=== PATIENT | female | born 1955 | race Caucasian/White ===

== ENCOUNTER 2024-06-06 14:17 | Emergency (ER) | payer MEDICARE, SELFPAY ==
--- NOTE | ~2024-06-06 | CT_ITS ---
EXAMINATION: CT ABDOMEN AND PELVIS WITHOUT CONTRAST CLINICAL INFORMATION: Right flank pain. History of stones. COMPARISON: None available. TECHNIQUE: Multidetector volumetric imaging was performed from the superior aspect of the liver through the pubic symphysis. Sagittal and coronal reformatted images were obtained on the technologist's workstation. This CT examination was performed using dose optimization techniques as appropriate, variously including the following: *Automated exposure control *Adjustment of mA and/or kV according to patient size (this includes techniques or standardized protocols for targeted exams where dose is matched to indication/reason for exam; i.e. extremities or head) *Use of iterative reconstruction technique DLP: 832 mGy-cm FINDINGS: LUNG BASES: Asymmetric elevation of left diaphragm above the right. Lung bases normally aerated. No pleural effusion or pneumothorax. LIVER, GALLBLADDER, AND BILIARY TREE: There is approximately 1 cm rounded hypodensity in segment 7 of liver likely benign in etiology. No suspicious hepatic lesion. No intrahepatic bile duct dilatation. The gallbladder is unremarkable with no evidence of radiopaque gallstones, gallbladder wall thickening, or obvious pericholecystic inflammatory changes. PANCREAS: Unremarkable. SPLEEN: Unremarkable. ADRENAL GLANDS: Unremarkable. KIDNEYS AND URETERS: Mild hydronephrosis of the right kidney with distention and renal pelvis and the right ureter to the ureterovesical junction. There is an obstructing stone at the distal right ureter at the UVJ. Stone measures about 2 to 3 mm size. Axial image 576/723 series 4. No other right renal or ureteral stone. There is no stone in the left collecting system. No left-sided hydronephrosis BLADDER: Unremarkable. GASTROINTESTINAL TRACT: Surgical anastomotic suture line at the rectosigmoid. There are a few scattered diverticula of the left colon and sigmoid with no evidence of diverticulitis. No bowel obstruction. No bowel wall thickening or edema. Moderate volume of stool in the colon. The appendix is normal. Small bowel loops are normal. ABDOMINAL WALL: Fat-containing ventral wall hernia superior to the umbilicus. Proximal 9 cm. Abdominal wall defect measuring about 1.5 cm. Herniated fat. Measures approximately 5 x 3 x 6 cm. LYMPH NODES: No significant lymphadenopathy. VASCULAR: There are vascular calcifications in the abdomen or pelvis. There is no aneurysm. PELVIC VISCERA: Status post hysterectomy. OSSEOUS STRUCTURES: Unremarkable. CT/CT abdomen pelvis wo IV con IMPRESSION: 1. Mild hydronephrosis of right kidney due to a 2 to 3 mm obstructing stone at the distal right ureter at the UVJ. 2. Fat-containing ventral wall hernia. Fleischner guidelines were followed. Electronically signed by: Mukund Hernandez MD 06/06/2024 04:56 PM EST
[2024-06-06 14:23] VITALS: BP 142/94; PULSE 87; RESP 16; TEMP 36.5; O2SAT 98; BMI 28.2
[2024-06-06 15:29] LABS: MANUAL DIFF FLAG NO
[2024-06-06 15:32] LABS: Basophils Absolute Auto 0.1 X10*3/uL (0.0-0.2); Basophils Percent Auto 0.5 % (0-2); Eosinophils Absolute Auto 0.1 X10*3/uL (0.0-0.4); Eosinophils Percent Auto 0.6 % (0-4); Hematocrit 41.5 % (37.0-47.0); Imm Gran Abs Auto 0.06 X10*3/uL (0.00-0.03); Imm Gran Pct Auto 0.4 % (0.0-0.4); Lymphocytes Absolute Auto 1.5 X10*3/uL (1.2-4.9); Lymphocytes Percent Auto 10.3 % (20-40); Mean Corpuscular HGB Conc 33.7 g/dl (31.0-35.0); Mean Corpuscular Hemoglobin 30.4 pg (27.0-33.0); Mean Corpuscular Volume 90.2 fL (80.0-98.0); Mean Platelet Volume 10.2 fL (9.4-12.3); Monocytes Absolute Auto 0.6 X10*3/uL (0.1-1.2); Neutrophils Percent Auto 84.2 % (45-73); Platelet Count 411 X10*3/uL (160-400); White Blood Count 14.2 X10*3/uL (4.8-10.8)
[2024-06-06 15:51] LABS: Albumin Level 4.2 g/dL (3.5-5.0); Anion Gap 13 (12-20); Aspartate Amino Transferase 16 U/L (5-31); Bilirubin Direct 0.2 mg/dL (0.0-0.5); Bilirubin Total 0.5 mg/dL (0.0-1.0); Blood Urea Nitrogen 18 mg/dL (9-16); Calcium 9.6 mg/dL (8.4-10.2); Carbon Dioxide 26 mmol/L (22-29); Chloride 103 mmol/L (96-108); Creatinine Clr Calc Pharmacy 59.9; Estimated Glomerular Filt Rate 55; Glucose Random 118 mg/dL (60-115); Lipase 19 U/L (8-78); Magnesium 2.2 mg/dL (1.6-2.6); Potassium 5.1 mmol/L (3.3-5.1); Sodium 137 mmol/L (135-145); Total Protein 6.8 g/dL (6.5-8.0)
[2024-06-06 16:14] LABS: Alanine Aminotransferase 14 U/L (0-31); Alkaline Phosphatase 91 U/L (39-117)
--- NOTE | 2024-06-06 17:54 | ED.GENADULT ---
HPI - General Adult General Chief complaint: Abdominal Pain Stated complaint: severe back pain Time Seen by Provider: 06/06/24 17:51 History of Present Illness ED Provider: Dr. Le HPI narrative: 69 y/o F patient; PMH nephrolothiasis; presents from home with report of right lower back pain radiating into her right side abdomen. Denies associated nausea/vomiting, fever or chills, SOB, cough/congestion, chest pain. Patient states feels similar to her prior kidney stones. Related Data Previous Rx's ?Medication ?Instructions ?Recorded ibuprofen 400 mg tablet 400 mg PO Q6H PRN pain #30 tabs 06/06/24 tamsulosin 0.4 mg capsule 0.4 mg PO DAILY #14 caps 06/06/24 Allergies Allergy/AdvReac Type Severity Reaction Status Date / Time Sulfa (Sulfonamide Allergy Unknown Unknown Verified 06/06/24 14:28 Antibiotics) Review of Systems Review of Systems: Yes all other systems are reviewed and are negative PMFSH Past Medical History Attestation statement: The following information was validated with the patient. Source: old records reviewed Social History Social History Smoked in Last 30 Days: No Use of substances other than those prescribed or required for medical reasons: No Advance Directives: No Advance Directives Information Provided: Yes Do you have a plan to hurt others: No Plan Physical Exam ED Vital Signs: Vital Signs - 24 hr 06/06/24 14:23 06/06/24 18:42 Temperature 97.7 F 97.6 F Pulse Rate 87 91 Respiratory Rate 16 16 Blood Pressure 142/94 H 131/67 Pulse Oximetry 98 99 Oxygen Delivery Method Room Air Room Air BMI result Body Mass Index 28.2 Patient is afebrile and hemodynamically stable. Const General: cooperative Orientation/consciousness: patient oriented x3 HENMT Head: Yes normal to inspection and Yes atraumatic Eyes General: appearance normal, both eyes and all related structures Neck Neck: Yes normal visual inspection, Yes full ROM, Yes supple and No tender Chest Chest palpation & inspection: normal inspection of the chest and normal palpation of entire chest wall Resp Effort & Inspection: normal respiratory effort, able to speak in complete sentences, no cough and no respiratory distress Auscultation: clear to auscultation bilaterally Cardio Rate: regular rate Rhythm: regular rhythm Peripheral pulses: Peripheral pulses 2+ throughout GI Inspection: No Abdominal wall edema and No distended Palpation (GI): Soft to palpation, not firm, nontender, no guarding and not rigid Auscultation: normal bowel sounds Back/Spine/Pelvis Back: back tenderness Neuro General: patient oriented x3 Course Course Course Narrative: Patient is afebrile and hemodynamically stable. Reviewed labs and CT Abdomen/Pelvis ordered in triage. Mild leukocytosis 14.2. Remainder of labs unremarkable. CT with mild hydronephrosis of right kidney due to 2 - 3mm obstructing stone at the distal right ureter at the UVJ. Fat containing ventral wall hernia. Pending UA. Triage provider ordered IVF, Toradol IV, Prednisone 20mg PO, and Flomax PO prior to my assessment of patient. Toradol changed to IM and patient provided with PO fluids. UA without evidence of infection. Plan: Discharge to home with PCP and Urology follow up Return precautions given Medications Administered Discontinued Medications Generic Name Dose Route Start Last Admin Trade Name Freq PRN Reason Stop Dose Admin Ketorolac Tromethamine 30 mg 06/06/24 18:06 06/06/24 18:16 Ketorolac Tromethamine 30 Mg/Ml Vial IM 06/06/24 18:07 30 mg ONCE ONE Administration Prednisone 20 mg 06/06/24 17:33 06/06/24 18:00 Prednisone 20 Mg Tablet PO 06/06/24 17:34 20 mg ONCE ONE Administration Tamsulosin HCl 0.4 mg 06/06/24 17:33 06/06/24 17:59 Tamsulosin Hcl 0.4 Mg Capsule PO 06/06/24 17:34 0.4 mg ONCE ONE Administration Medical Decision Making Lab Data 06/06/24 15:13 06/06/24 15:13 Labs: Lab Results 06/06/24 06/06/24 Range/Units 15:13 18:43 WBC 14.2 H (4.8-10.8) X10*3/uL RBC 4.60 (4.20-5.50) X10*6/uL Hgb 14.0 (12.0-16.0) g/dl Hct 41.5 (37.0-47.0) % MCV 90.2 (80.0-98.0) fL MCH 30.4 (27.0-33.0) pg MCHC 33.7 (31.0-35.0) g/dl RDW 13.0 (11.0-16.0) % Plt Count 411 H (160-400) X10*3/uL MPV 10.2 (9.4-12.3) fL Immature Gran % (Auto) 0.4 (0.0-0.4) % Neut % (Auto) 84.2 H (45-73) % Lymph % (Auto) 10.3 L (20-40) % [place] % (Auto) 4.0 (2-11) % Eos % (Auto) 0.6 (0-4) % Baso % (Auto) 0.5 (0-2) % Lymph # (Auto) 1.5 (1.2-4.9) X10*3/uL [place] # (Auto) 0.6 (0.1-1.2) X10*3/uL Eos # (Auto) 0.1 (0.0-0.4) X10*3/uL Baso # (Auto) 0.1 (0.0-0.2) X10*3/uL Abs Immat Gran (auto) 0.06 H (0.00-0.03) X10*3/uL Absolute Neuts (auto) 12.0 H (2.0-8.3) x10*3/uL Absolute Nucleated RBC 0.000 (0.0-0.012) X10*3/uL Nucleated RBC % (auto) 0.0 (0.0-0.2) /100WBC Sodium 137 (135-145) mmol/L Potassium 5.1 (3.3-5.1) mmol/L Chloride 103 (96-108) mmol/L Carbon Dioxide 26 (22-29) mmol/L Anion Gap 13 (12-20) BUN 18 H (9-16) mg/dL Creatinine 1.00 (0.5-1.4) mg/dL Estim Creat Clear Calc 59.9 Estimated GFR 55 Random Glucose 118 H (60-115) mg/dL Calcium 9.6 (8.4-10.2) mg/dL Magnesium 2.2 (1.6-2.6) mg/dL Total Bilirubin 0.5 (0.0-1.0) mg/dL Direct Bilirubin 0.2 (0.0-0.5) mg/dL AST 16 (5-31) U/L ALT 14 (0-31) U/L Alkaline Phosphatase 91 (39-117) U/L Total Protein 6.8 (6.5-8.0) g/dL Albumin 4.2 (3.5-5.0) g/dL Lipase 19 (8-78) U/L Urine Color Yellow Urine Appearance Turbid Urine pH 5.5 (5.0-9.0) Ur Specific [place] 1.015 (1.005-1.025) Urine Protein 30 (1+) H (Neg-Trace) mg/dL Urine Glucose (UA) Negative (Negative) mg/dL Urine Ketones Trace (Negative) mg/dL Urine Blood Large (3+) H (Negative) Urine Nitrite Negative (Negative) Ur Leukocyte Esterase Trace H (Negative) Urine RBC >20 H (0-2) /HPF Urine WBC 0-5 (0-5) /HPF Ur Squamous Epith Cells 0-2 (0-2) /HPF Urine Bacteria None Seen (None Seen) Hyaline Casts 3-5 (0-2) /LPF Radiology Impression Discussion of test interpretation with radiology: I have reviewed the radiologist's reading. Radiologist Impression: EXAMINATION: CT ABDOMEN AND PELVIS WITHOUT CONTRAST CLINICAL INFORMATION: Right flank pain. History of stones. COMPARISON: None available. TECHNIQUE: Multidetector volumetric imaging was performed from the superior aspect of the liver through the pubic symphysis. Sagittal and coronal reformatted images were obtained on the technologist's workstation. This CT examination was performed using dose optimization techniques as appropriate, variously including the following: *Automated exposure control *Adjustment of mA and/or kV according to patient size (this includes techniques or standardized protocols for targeted exams where dose is matched to indication/reason for exam; i.e. extremities or head) *Use of iterative reconstruction technique DLP: 832 mGy-cm FINDINGS: LUNG BASES: Asymmetric elevation of left diaphragm above the right. Lung bases normally aerated. No pleural effusion or pneumothorax. LIVER, GALLBLADDER, AND BILIARY TREE: There is approximately 1 cm rounded hypodensity in segment 7 of liver likely benign in etiology. No suspicious hepatic lesion. No intrahepatic bile duct dilatation. The gallbladder is unremarkable with no evidence of radiopaque gallstones, gallbladder wall thickening, or obvious pericholecystic inflammatory changes. PANCREAS: Unremarkable. SPLEEN: Unremarkable. ADRENAL GLANDS: Unremarkable. KIDNEYS AND URETERS: Mild hydronephrosis of the right kidney with distention and renal pelvis and the right ureter to the ureterovesical junction. There is an obstructing stone at the distal right ureter at the UVJ. Stone measures about 2 to 3 mm size. Axial image 576/723 series 4. No other right renal or ureteral stone. There is no stone in the left collecting system. No left-sided hydronephrosis BLADDER: Unremarkable. GASTROINTESTINAL TRACT: Surgical anastomotic suture line at the rectosigmoid. There are a few scattered diverticula of the left colon and sigmoid with no evidence of diverticulitis. No bowel obstruction. No bowel wall thickening or edema. Moderate volume of stool in the colon. The appendix is normal. Small bowel loops are normal. ABDOMINAL WALL: Fat-containing ventral wall hernia superior to the umbilicus. Proximal 9 cm. Abdominal wall defect measuring about 1.5 cm. Herniated fat. Measures approximately 5 x 3 x 6 cm. LYMPH NODES: No significant lymphadenopathy. VASCULAR: There are vascular calcifications in the abdomen or pelvis. There is no aneurysm. PELVIC VISCERA: Status post hysterectomy. OSSEOUS STRUCTURES: Unremarkable. CT/CT abdomen pelvis wo IV con IMPRESSION: 1. Mild hydronephrosis of right kidney due to a 2 to 3 mm obstructing stone at the distal right ureter at the UVJ. 2. Fat-containing ventral wall hernia. Fleischner guidelines were followed. Electronically signed by: Mukund Hernandez MD 06/06/2024 04:56 PM [facility] Discharge Plan Discharge Clinical Impression: Calculus of kidney Patient Disposition: Home, Self-Care Instructions: Kidney Stones (ED) Additional Instructions: As we discussed, you were seen for flank pain. You were found to have a 2 - 3mm kidney stone. Prescriptions for Ibuprofen (pain medicine) and Flomax (medication to help pass the stone) were sent to your pharmacy. Take these as prescribed. Please call to arrange an appointment with the urologist within the next 1 week. Return to the emergency department for: Worsening pain Fever Prescriptions: New tamsulosin 0.4 mg capsule 0.4 mg PO DAILY Qty: 14 0RF ibuprofen 400 mg tablet 400 mg PO Q6H PRN (Reason: pain) Qty: 30 0RF Referrals: Martinez La MD [Physician] - 1 week Print Language: Upper Sorbian
[2024-06-06] MEDS: Tamsulosin HCL 0.4 MG CAPSULE PO (17:59)
[2024-06-06] MEDS: predniSONE 20 MG TABLET PO (18:00)
[2024-06-06] MEDS: Ketorolac Tromethamine 30 MG/ML VIAL IM (18:16)
[2024-06-06 18:42] VITALS: BP 131/67; PULSE 91; RESP 16; TEMP 36.4; O2SAT 99
[2024-06-06 19:07] LABS: Appearance Urine Turbid; Color Urine Yellow; Glucose Urine UA Negative (Negative); Leukocyte Esterase Urine Trace (Negative); Nitrite Urine Negative (Negative); PH 5.5 (5.0-9.0); Specific Gravity - Urine 1.015 (1.005-1.025); UMIC TRIGGER UACC YES; Urine Blood Large (3+) (Negative); Urine Ketones Trace mg/dL (Negative); Urine Protein 30 (1+) mg/dL (Neg-Trace)
[2024-06-06 19:29] LABS: Bacteria Urine None Seen (None Seen); RBC Urine >20 /HPF (0-2); Squamous Epithelial Cell Urine 0-2 /HPF (0-2); WBC Urine 0-5 /HPF (0-5)
[2024-06-06 19:45] VITALS: BP 131/67; PULSE 91; RESP 16; TEMP 36.4; O2SAT 99
== END 2024-06-06 19:46 | disposition home or self-care (01) ==
PROVIDERS: Physician Assistant Medical; Emergency Provider Emergency Medicine; PCP Internal Medicine
DX: N20.0 Calculus of kidney (principal); M54.50 Low back pain, unspecified; R10.2 Pelvic and perineal pain; Z79.899 Other long term (current) drug therapy
CPT/HCPCS: 36415; 74176; 80048; 80076; 81001; 81003; 83690; 83735; 85025; 96372; 99284; J1885

== ENCOUNTER 2024-08-01 07:56 | Outpatient (AMB) | payer MEDICARE, SELFPAY ==
--- NOTE | 2024-08-01 08:11 | MHC.OFFVIS ---
Intake Visit Reasons: kidney stones Intake Note: New Patient presents for initial visit for kidney stones Urology Medications: none Blood Thinner: none Art Conservator Required: No Accompanied by: Self / Same As Patient Allergies Sulfa (Sulfonamide Antibiotics) Allergy (Unknown, Verified 08/01/24 08:38) Unknown Medication List - Last Reconciled 08/01/24 by LAM UribeP- alendronate 70 mg PO QWEEK atorvastatin 80 mg PO DAILY bupropion HCl SR 150 mg PO BID cyclobenzaprine 10 mg PO DAILY PRN gabapentin 100 - 200 mg PO TID PRN ibuprofen 400 mg PO Q6H PRN levothyroxine 175 mcg PO DAILY omeprazole 40 mg PO DAILY sertraline 100 mg PO DAILY tramadol mg PO HPI Comments Details: Tejal Turcios is a very pleasant 69-year-old female patient of Dr. Cory Shen. She presents to the office today as a new patient for nephrolithiasis. In discussion with the patient today she reports having seeked emergency room care approximately 2 months ago for right-sided flank pain she had been experiencing that has since subsided. CT results reviewed with the patient today 06/14 mild hydronephrosis of the right kidney due to 2-3 mm obstructing stone at the distal right ureter at the UVJ. She does report a previous history of nephrolithiasis over 10 years ago requiring ureteroscopy. She denies having had any other episodes of nephrolithiasis in the last 10 years. She reports pain has since subsided. She otherwise denies any bothersome urinary issues. She denies urinary urgency, urinary frequency, incontinence, nocturia, hematuria, dysuria, foul smelling urine, changes to urinary stream, flank pain, fever, and or chills.She is happy with her current voiding parameters. In office urinalysis results reviewed with the patient today. We discussed at length potential causes of nephrolithiasis as well as importance of adequate hydration relation to nephrolithiasis. We discussed potential for near future metabolic workup with [facility]. She otherwise offers no other issues or concerns at this time. Review of Systems Const All systems reviewed & are unremarkable except as noted in HPI and below Physical Exam Const General: cooperative, healthy appearing, comfortable, no acute distress, well developed, alert and awake Orientation/consciousness: patient oriented x3 Limitations: no limitations HEENT Head: Yes normal to inspection, Yes normocephalic and Yes atraumatic Ears: hearing grossly normal bilaterally Eyes General: appearance normal, both eyes and all related structures Neck Neck: Yes normal visual inspection and Yes trachea midline Chest Chest palpation & inspection: normal inspection of the chest Resp Effort & Inspection: normal respiratory effort and able to speak in complete sentences Cardio Rate: regular rate GI Inspection: Yes normal to inspection General: Yes no CVA tenderness Back/Spine/Pelvis Back: no CVA tenderness Skin General skin exam: no rashes or lesions noted Neuro General: patient oriented x3 Extrem General: Yes normal to inspection Psych Appearance: grossly normal and well kempt Mental Status: mental status grossly normal Speech and movement: Normal speech and movement present and Clear speech present Affect: normal affect Attitude: cooperative Thought process: Normal thought process present Thought content: Normal thought content present Insight: Fair insight present (Psych) Judgement: Fair judgement present (Psych) Results AMB Urinalysis, Automated UA Leukoctes 15 Angelina/uL Last Edit by [employer] AmiWisair on 08/01/24 08:25 UA Nitrite Last Edit by Ricebooknolan Nelson on 08/01/24 08:25 UA Urobilinogen 0.2 mg/dL Last Edit by [employer] on 08/01/24 08:25 UA Protein 0 mg/dL Last Edit by [employer] on 08/01/24 08:25 UA pH 6.0 Last Edit by Charlene MuellerWisair on 08/01/24 08:25 UA Blood 0 Cheng/uL Last Edit by [employer] on 08/01/24 08:25 UA Specific [place] 1.010 Last Edit by efab[employer] corporationramo Nelson on 08/01/24 08:25 UA Ketone Last Edit by [employer] on 08/01/24 08:25 UA Bilirubin 0 mg/dL Last Edit by [employer] on 08/01/24 08:25 UA Glucose 0 mg/dL Last Edit by [employer] on 08/01/24 08:25 Results Reviewed Results Reviewed: Laboratory Last Values Urine pH (Auto) 6.0 08/01/24 08:24 Specific [place] (Auto) 1.010 08/01/24 08:24 Urine Protein (Auto) 0 mg/dL 08/01/24 08:24 Glucose (UA)(Auto) 0 mg/dL 08/01/24 08:24 Urine Blood (Auto) 0 Cheng/uL 08/01/24 08:24 Urine Bilirubin (Auto) 0 mg/dL 08/01/24 08:24 Urine Urobilinogen (Auto) 0.2 mg/dL 08/01/24 08:24 Leukocyte Esterase (Auto) 15 Angelina/uL 08/01/24 08:24 Date of Service: 06/06/24 EXAMINATION: CT ABDOMEN AND PELVIS WITHOUT CONTRAST FINDINGS: LUNG BASES: Asymmetric elevation of left diaphragm above the right. Lung bases normally aerated. No pleural effusion or pneumothorax. LIVER, GALLBLADDER, AND BILIARY TREE: There is approximately 1 cm rounded hypodensity in segment 7 of liver likely benign in etiology. No suspicious hepatic lesion. No intrahepatic bile duct dilatation. The gallbladder is unremarkable with no evidence of radiopaque gallstones, gallbladder wall thickening, or obvious pericholecystic inflammatory changes. PANCREAS: Unremarkable. SPLEEN: Unremarkable. ADRENAL GLANDS: Unremarkable. KIDNEYS AND URETERS: Mild hydronephrosis of the right kidney with distention and renal pelvis and the right ureter to the ureterovesical junction. There is an obstructing stone at the distal right ureter at the UVJ. Stone measures about 2 to 3 mm size. Axial image 576/723 series 4. No other right renal or ureteral stone. There is no stone in the left collecting system. No left-sided hydronephrosis BLADDER: Unremarkable. GASTROINTESTINAL TRACT: Surgical anastomotic suture line at the rectosigmoid. There are a few scattered diverticula of the left colon and sigmoid with no evidence of diverticulitis. No bowel obstruction. No bowel wall thickening or edema. Moderate volume of stool in the colon. The appendix is normal. Small bowel loops are normal. ABDOMINAL WALL: Fat-containing ventral wall hernia superior to the umbilicus. Proximal 9 cm. Abdominal wall defect measuring about 1.5 cm. Herniated fat. Measures approximately 5 x 3 x 6 cm. LYMPH NODES: No significant lymphadenopathy. VASCULAR: There are vascular calcifications in the abdomen or pelvis. There is no aneurysm. PELVIC VISCERA: Status post hysterectomy. OSSEOUS STRUCTURES: Unremarkable. IMPRESSION: 1. Mild hydronephrosis of right kidney due to a 2 to 3 mm obstructing stone at the distal right ureter at the UVJ. 2. Fat-containing ventral wall hernia. Assessment & Plan Assessment & Plan (1) Calculus of kidney: Code(s): N20.0 - Calculus of kidney Category: Medical Plan In office urinalysis results reviewed with the patient today; as noted above. Recent CT results reviewed with the patient today; as noted above. We discussed at length potential causes of nephrolithiasis as well as further metabolic workup. We discussed importance of adequate hydration relation to nephrolithiasis. We discussed adding 1 oz of lemon juice to water daily. She denies any bothersome urinary issues or concerns. She reports be happy with current voiding parameters. Follow-up in 1-3 months with imaging to be completed prior; or sooner with any issues, concerns, and or questions. Orders: Orders AMB Urinalysis Automated Today Z13.9 - Encounter for screening, unspecified US renal BI Today N20.0 - Calculus of kidney Patient Instructions: The patient had an opportunity to ask questions regarding the treatment plan. All questions were answered. Physical exam, labs, and imaging were discussed and reviewed in detail. As well as risks, benefits, and discussion of treatment choices. No major barriers to understanding were identified. The patient expressed understanding and agreement with the above treatment plan. The patient was made aware they should contact our office by phone for worsening of their current condition, the appearance of new symptoms, or with any questions or concerns. Compliance is encouraged with any medications and follow up testing that is ordered. It is a privilege to be allowed the opportunity to participate in? your urological care.? Again, if you have any questions or concerns If you have any questions or concerns please do not hesitate to contact me. The office is [phone]. This note is constructed using voice recognition software. While every effort has been made to ensure accuracy moisture conditioner operator errors may have been included. Yours sincerely, ROBSON Uribe Coding Level of Care Code New Pt Level 3 (35122) Diagnoses Calculus of kidney N20.0
== END 2024-08-01 08:39 | disposition home or self-care (01) ==
PROVIDERS: PCP Internal Medicine; Visit Provider Nurse Practitioner Family
DX: N20.0 Calculus of kidney (principal); Z13.9 Encounter for screening, unspecified
CPT/HCPCS: 99203

== ENCOUNTER → 2024-08-01 07:56 | Outpatient (BNVA) | payer MEDICARE, SELFPAY | PROVIDERS: PCP Internal Medicine; Visit Provider Nurse Practitioner Family | DX: N20.0 Calculus of kidney (principal) | CPT/HCPCS: 81003; 99202 ==

== ENCOUNTER 2024-09-05 11:00 | Outpatient (REF) | payer MEDICARE, SELFPAY ==
[2024-09-05 14:25] LABS: MANUAL DIFF FLAG NO
[2024-09-05 14:28] LABS: Basophils Absolute Auto 0.1 X10*3/uL (0.0-0.2); Basophils Percent Auto 1.1 % (0-2); Eosinophils Absolute Auto 0.2 X10*3/uL (0.0-0.4); Eosinophils Percent Auto 3.4 % (0-4); Hematocrit 42.6 % (37.0-47.0); Hemoglobin 13.8 g/dl (12.0-16.0); Imm Gran Abs Auto 0.01 X10*3/uL (0.00-0.03); Imm Gran Pct Auto 0.2 % (0.0-0.4); Lymphocytes Absolute Auto 2.1 X10*3/uL (1.2-4.9); Lymphocytes Percent Auto 32.7 % (20-40); Mean Corpuscular HGB Conc 32.4 g/dl (31.0-35.0); Mean Corpuscular Hemoglobin 29.2 pg (27.0-33.0); Mean Corpuscular Volume 90.3 fL (80.0-98.0); Mean Platelet Volume 10.7 fL (9.4-12.3); Monocytes Absolute Auto 0.4 X10*3/uL (0.1-1.2); Monocytes Percent Auto 6.8 % (2-11); Neutrophils Absolute Auto 3.6 x10*3/uL (2.0-8.3); Neutrophils Percent Auto 55.8 % (45-73); Platelet Count 381 X10*3/uL (160-400); Red Blood Count 4.72 X10*6/uL (4.20-5.50); Red Cell Distribution Width 13.2 % (11.0-16.0); White Blood Count 6.5 X10*3/uL (4.8-10.8)
[2024-09-05 14:49] LABS: Estimated Average Glucose 108 mg/dL; Hemoglobin A1C 130.4511 umol/L; Hemoglobin A1c % 5.4 % (<6.0); Total Hemoglobin (HGBA1C) 3635.7978 umol/L
[2024-09-05 14:56] LABS: Alanine Aminotransferase 15 U/L (0-31); Alkaline Phosphatase 97 U/L (39-117); Anion Gap 11 (12-20); Aspartate Amino Transferase 21 U/L (5-31); Bilirubin Total 0.4 mg/dL (0.0-1.0); Blood Urea Nitrogen 14 mg/dL (9-16); Calcium 9.2 mg/dL (8.4-10.2); Carbon Dioxide 25 mmol/L (22-29); Chloride 108 mmol/L (96-108); Cholesterol 163 mg/dL (<200); Estimated Glomerular Filt Rate > 60; Glucose Random 79 mg/dL (60-115); HDL Cholesterol 46 mg/dL (>40); LDL Cholesterol Calculated 96 mg/dL (<100); Potassium 4.7 mmol/L (3.3-5.1); Sodium 139 mmol/L (135-145); Total Protein 6.9 g/dL (6.5-8.0); Triglycerides 107 mg/dL (<150)
[2024-09-05 15:11] LABS: TSH reflex Free T4 13.05 uIU/mL (0.32-4.0)
[2024-09-05 15:46] LABS: Free T4 (Free Thyroxine) 1.13 ng/dL (0.71-1.85)
[2024-09-06 08:07] LABS: ~HepC Num1 0.08 S/CO (0.00-0.79); ~Hepatitis C Antibody Nonreactive (Nonreactive)
== END 2024-09-05 11:01 | disposition home or self-care (01) ==
LOC: HO.CHCLDS 11:00
PROVIDERS: Visit Provider Internal Medicine
DX: E03.9 Hypothyroidism, unspecified (principal); Z13.1 Encounter for screening for diabetes mellitus
CPT/HCPCS: 36415; 80053; 80061; 83036; 84439; 84443; 85025; 86803

== ENCOUNTER 2024-09-08 10:55 | Outpatient (REF) | payer MEDICARE, SELFPAY ==
--- NOTE | ~2024-09-08 | US_ITS ---
CLINICAL HISTORY: N20.0 - Calculus of kidney US Renal Comparison: None Findings: Right kidney normal size and echotexture, 9.6 cm length. Left kidney normal size and echotexture, 10.0 cm length. No collecting system dilatation of either kidney. Normal color Doppler. IMPRESSION: 1. Normal kidneys. This document has been electronically signed by: Kahlil Ramirez MD on 09/09/2024 08:27:18
--- OUTSIDE RECORDS SUMMARY | 2024-09-08 12:51 | XMS_ITS | Encounter Summary ---
Author Organization [employer] Address [address] [place] [address] Care Team Providers Care Pumper Gauger Apprentice Name Role Phone Ej Ceron MD Primary Care Prov ider Encounter Details Date Type Department Care Team (Late st Contact Info) Description 09/05/2024 Orders Only [facility] [address] [place], [place] [phone] Ej Ceron MD [address] [place], [place] [phone] Acquired hypothyroidism (Primary Dx) Social History Tobacco Use Types Packs/Day Years Used Date Smoking Tobacco: Former Cigarettes 0.5 46 S tarted: 1976 Smokeless Tobacco: Never Alcohol Use Standard Drinks/Week Comments Yes 0 (1 standard drink = 0.6 oz pur e alcohol) tequila 1-2 times a yeart Depression Answer Date Recorded Patient Health Questionnaire-9 Score 0 05/17/2024 Patient Health Questionnaire-9 Score 0 05/17/2024 Last PHQ-9: Questionnaire Data Not on file 1 07/17/2023 Housing Stability Answer Date Recorded What is your housing situation today? I have wilfredo juarez 05/17/[address] you li ve. Do you have problems with any of the following? None of the above 05/17/2024 Food Insecurity Answer Date Recorded Within the past 12 months, y ou worried that your food would run out before you got money to buy more: Never True 05/17/2024 Within the past 12 months,th e food you bought just didn't last and you didn't have enough money to get more: Never True Transportation Answer Date Recorded In the past 12 months, has l ack of transportation kept you from medical appts, meetings, work or from getting things needed for daily living? No 05/17/2024 Utilities Answer Date Recorded In the past 12 months, has t he electric, gas, oil or water company threatened to shut off services in your home? No 05/17/2024 Depression Answer Date Recorded Patient Health Questionnaire-2 Score 0 05/17/2024 Internet Access Answer Date Recorded Internet Access Q1 Yes 05/17/2024 Internet Access Q2 Not on file 05/17/2024 Comments Unknown Sex and Gender Information Value Date Recorded Sex Assigned at Female 05/17/2024 12:03 PM EST Legal Sex Female 11:53 AM EDT Gender Identity Female 05/17/2024 12:03 PM EST Sexual Orientation Don't know 05/17/2024 12 :03 PM EST documented as of this encounter Plan of Treatment Scheduled Orders Name Type Priority Associated Diagnoses Orde r Schedule TSH W/Reflex to FT4 Lab Routine Acquired hypothyroidism Expected: 11/05/2024 (Approximate), Expires: 09/05/2025 documented as of this encounter Visit Diagnoses Diagnosis Acquired hypothyroidism- Primary Unspecified hypothyroidism documented in this encounter Additional Health Concerns Assessment Noted Time PHQ-9 Depression Total Score: 0 05/17/20 2:24 PM EST documented as of this encounter Care Teams Pumper Gauger Apprentice Relationship Specialty Start Date End Date Ej Ceron MD [address] [place] [id number] PCP - General Internal Medicine 06/08/24 documented as of this encounter
--- OUTSIDE RECORDS SUMMARY | 2024-09-08 12:51 | XMS_ITS | Clinical Summary ---
Author Organization [facility] Address [address] [place] [address] Care Team Providers Care Knock Out Hand Name Role Phone Ej Ceron Primary Care Provide r Encounters Date Type Department Care Team Description 08/12/2024 12:50 PM EST - 08/12/2024 11:59 PM EST Hospital Encounter [facility] Xray [address] [place] [phone] Pain in left shoulder; Other chronic pain Discharge Disposition: Home or Self Care 08/02/2024 10:44 AM EST - 08/02/2024 11:59 PM EST Hospital Encounter [facility] at [address] [phone] Encounter for screening mammogram for malignant neoplasm of breast Discharge Disposition: Home or Self Care from Last 3 Months Surgical History Surgery Date Site/Laterality Comments LITHOTRIPSY PROCEDURE: HISTORICAL LITHOTRIPSY BOWEL RESECTION PROCEDURE: HISTORICAL BOWEL RESECTION OTHER SURGICAL HISTORY PROCEDURE: HISTORY OTHER; COMMENT: mid urethral sling operation COLONOSCOPY 2016 PROCEDURE: HISTORICAL COLONOSCOPY; COMMENT: Dr Anthony repeat 10 yrs. No report received SHOULDER SURGERY 2008 Right PROCEDURE: HISTORICAL SHOULDER SURGERY Medical History Medical History Date Comments Hypothyroidism 07/01/2017 DX:Hypothyroidis m Hyperlipidemia 07/01/2017 DX:Hyperlipidemi a Allergic rhinitis 07/01/2017 DX:Allergic rh initis GERD (gastroesophageal reflux disease) 07/01/2017 DX:GERD (gastroesophageal reflux disease) Depression 07/01/2017 DX:Depression Diverticulosis 07/01/2017 DX:Diverticulosi s Hemorrhoids 07/01/2017 DX:Hemorrhoids; COMMENT: internal Osteoarthritis 07/01/2017 DX:Osteoarthriti s; COMMENT: knees Osteopenia 07/01/2017 DX:Osteopenia Lung nodule 02/02/2020 DX:Lung nodule; COMMENT: Does LDCT CAD (coronary artery disease) 02/02/2020 DX :CAD (coronary artery disease); COMMENT: Unless she is symptomatic, only thing to do is high dose statin, baby asa and make sure BP and BS are good. Per Dr Laureano Osteoarthritis of both knees 07/01/2017 DX: Osteoarthritis of both knees; COMMENT: knees Family History Medical History Relation Name Comments Alzheimer's disease Brother 1 No Known Problems Brother 2 Coronary artery disease Father Coronary artery disease Mother Thyroid disease Mother Breast cancer Other sister Thyroid disease Sister 1 Breast cancer Sister 2 Relation Name Status Comments Brother 1 Brother 2 Alive Father Mother Other sister Alive Sister 1 Alive Sister 2 Social History Tobacco Use Types Packs/Day Years Used Date Smoking Tobacco: Former Cigarettes Q uit: 07/02/2022 Smokeless Tobacco: Never Alcohol Use Standard Drinks/Week Comments Yes 0 (1 standard drink = 0.6 oz pur e alcohol) Comments Unknown Sex and Gender Information Value Date Recorded Sex Assigned at Female 07/19/2024 2:15 PM EST Legal Sex Female 1:45 PM EDT Gender Identity Female 07/19/2024 2:15 PM EST Sexual Orientation Straight 07/19/2024 2: 15 PM EST Obstetrics History Last Filed Vital Signs Vital Sign Reading Time Taken Comments Blood Pressure 122/80 04/08/2024 12:55 PM EDT Pulse 96 04/08/2024 12:55 PM EDT Temperature - - Respiratory Rate - - Oxygen Saturation - - Inhaled Oxygen Concentration - - Weight 81.6 kg (180 lb) 08/02/2024 11:06 AM EST Height 170.2 cm (5' 7 ) 08/02/2024 11:06 AM EST Body Mass Index 28.19 08/02/2024 11:06 AM EST Plan of Treatment Health Maintenance Due Date Last Done Comments Cholesterol Screening (Lipid Panel) 02/13/2022 Falls Risk Assessment 02/13/2022 Hepatitis C Screening 02/13/2022 Medicare Annual Wellness Visit 02/13/2022 Social Influencers of Health Screening 02/13/2022 Zoster Vaccines (2 of 2) 09/21/2023 07/27/2023, 06/22 COVID-19 Vaccine ( - season) 2024 07/27/2023, 07/06/2023, 05/21/2022, Additional history exists Lung Cancer Screening (Low Dose CT) 04/12/2025 04/12/2024, 04/09/2023, 03/27/2022, Additional history exists Depression Screening 05/17/2025 05/17/2024 Hypertension/CHF/CAD Annual BMP Blood Test 06/06/2025 06/06/2024 Breast Cancer Screening 08/02/2026 08/02/2024 Colorectal Cancer Screening: Colonoscopy 08/15/2026 Osteoporosis Screening (Bone Density Screening) 06/18/2030 06/18/2020 DTaP,Tdap,and Td Vaccines (3 - Td or Tdap) 12/18/2030 12/18/2020, 02/14/2010 Pneumococcal Vaccine: 50+ Years Completed 07/27/2023, 01/15/2023, 11/30/2017, Additional history exists RSV Immunization Patients 60+ Years Old Completed 07/27/2023 Influenza Vaccine Completed 04/08/2024, , 04/17/2022, Additional history exists HIB Vaccines Aged Out No longer eligi ble based on patient's age to complete this topic HPV Vaccines Aged Out No longer eligi ble based on patient's age to complete this topic Hepatitis A Vaccines Aged Out No long er eligible based on patient's age to complete this topic Hepatitis B Vaccines Aged Out No long er eligible based on patient's age to complete this topic IPV Vaccines Aged Out No longer eligi ble based on patient's age to complete this topic MMR Vaccines Aged Out No longer eligi ble based on patient's age to complete this topic Meningococcal ACWY Vaccine Aged Out N o longer eligible based on patient's age to complete this topic Meningococcal B Vacine Aged Out No lo nger eligible based on patient's age to complete this topic RSV Immunization Patients Under 20 months Aged Out No longer eligible based on patient's age to complete this topic Varicella Vaccines Aged Out No longer eligible based on patient's age to complete this topic Procedures Procedure Name Priority Date/Time Associated Diagnosis Comments XR SHOULDER 2+ VIEWS LEFT Routine 08/12/2024 1:00 PM EST Pain in left shoulder Other chronic pain MG MAMMO DIGITAL SCREENING W PASHA BILAT Routine 08/02/2024 11:20 AM EST Encounter for screening mammogram for malignant neoplasm of breast CT LUNG SCREENING LOW DOSE Routine 04/12/2024 4:12 PM EDT DXA BONE DENSITY STUDY 1+ SITS AXIAL SKEL Routine 06/18/2020 11:06 AM EST Asymptomatic menopausal state from Last 3 Months or Most Recently Relevant to Health Maintenance Results * XR Shoulder 2+ Views Left (08/12/2024 1:00 PM EST) Anatomical Region Laterality Modality Upper Extremities, Shoulder Left Radi ographic Imaging 08/15/2024 8:04 AM EST Impressions 08/15/2024 8:06 AM EST Normal examination the left shoulder. Incidental note is made of old healed fractures of the left lateral third and fourth ribs. Code 14185 -------- FINAL REPORT -------- Dictated By: Kahlil Torres Dictated Date: 08/15/2024 08:04 ET Assigned Physician: Kahlil Torres Reviewed and Electronically Signed By: Kahlil Torres Signed Date: 08/15/2024 08:06 ET Workstation ID: [id number] Transcribed By: Self Edit Transcribed Date: 08/15/2024 08:04 ET Narrative 08/15/2024 8:06 AM EST HISTORY: The patient is a 69-year-old female with left shoulder pain for several weeks, nontraumatic. FINDINGS: AP, left posterior oblique, and transscapular views of the left shoulder are obtained. The study demonstrates old healed fractures of the left lateral third and fourth ribs. There is no fracture of the left shoulder no dislocation, arthritic change, osteolytic or osteoblastic lesion, or other bony abnormality is seen. No soft tissue abnormality is demonstrated. Procedure Note Kahlil Torres MD - 08/15/2024 HISTORY: The patient is a 69-year-old female with left shoulder pain forseveral weeks, nontraumatic. FINDINGS: AP, left posterior oblique, and transscapular views of the leftshoulder are obtained. The study demonstrates old healed fractures of theleft lateral third and fourth ribs. There is no fracture of the leftshoulder no dislocation, arthritic change, osteolytic or osteoblasticlesion, or other bony abnormality is seen. No soft tissue abnormality isdemonstrated. IMPRESSION: Normal examination the left shoulder. Incidental note is made of oldhealed fractures of the left lateral third and fourth ribs. Code 11205 -------- FINAL REPORT -------- Dictated By: Kahlil Torres Dictated Date: 08/15/2024 08:04 ET Assigned Physician: Kahlil Torres Reviewed and Electronically Signed By: Kahlil Torres Signed Date: 08/15/2024 08:06 ET Workstation ID: [id number] Transcribed By: Self Edit Transcribed Date: 08/15/2024 08:04 ET Ej Shen IMG XR PROCEDURES Fin al Result * MG Mammo Digital Screening w Pasha bilat (08/02/2024 11:20 AM EST) Anatomical Region Laterality Modality Breast Bilateral Mammography 08/04/2024 9:24 AM EST Impressions 08/04/2024 9:29 AM EST No mammographic evidence of malignancy. BI-RADS: ??Category 1: Negative RECOMMENDATION(S): Routine screening mammogram BILATERAL in 1 year. -------- FINAL REPORT -------- Dictated By: MUKUND FOLEY Dictated Date: 08/04/2024 09:24 ET Assigned Physician: MUKUND FOLEY Reviewed and Electronically Signed By: MUKUND FOLEY Signed Date: 08/04/2024 09:29 ET Workstation ID: [id number] Transcribed By: Self Edit Transcribed Date: 08/04/2024 09:24 ET Narrative 08/04/2024 9:29 AM EST EXAM: MG MAMMO DIGITAL SCREENING W PASHA BILAT EXAM DATE AND TIME: 08/02/2024 10:50 AM HISTORY: Breast cancer screen, avg risk, asymptomatic (Age => 40y) COMPARISON: 08/07/2016 TECHNIQUE: Bilateral digital breast tomosynthesis was performed in the MLO projection. Computer aided detection with iCAD ProFound AI 3D 3.1 was employed. TISSUE DENSITY: b: There are scattered areas of fibroglandular density. FINDINGS: There is no evidence of suspicious mass, unusual calcifications, or architectural distortion. Procedure Note Mukund Foley MD - 08/04/2024 EXAM: MAMMO DIGITAL SCREENING W PASHA BILAT EXAM DATE AND TIME: 08/02/2024 10:50 AM HISTORY: Breast cancer screen, avg risk, asymptomatic (Age => 40y) COMPARISON: 08/07/2016 TECHNIQUE: Bilateral digital breast tomosynthesis was performed in the MLOprojection. Computer aided detection with iCAD ProFound AI 3D 3.1 wasemployed. TISSUE DENSITY: b: There are scattered areas of fibroglandular density. FINDINGS: There is no evidence of suspicious mass, unusual calcifications, orarchitectural distortion. IMPRESSION: No mammographic evidence of malignancy. BI-RADS: Category 1: Negative RECOMMENDATION(S): Routine screening mammogram BILATERAL in 1 year. -------- FINAL REPORT -------- Dictated By: MUKUND FOLEY Dictated Date: 08/04/2024 09:24 ET Assigned Physician: MUKUND FOLEY Reviewed and Electronically Signed By: MUKUND FOLEY Signed Date: 08/04/2024 09:29 ET Workstation ID: [id number] Transcribed By: Self Edit Transcribed Date: 08/04/2024 09:24 ET Ej VALENZUELA BI PROCEDURES Fin al Result * CT LUNG SCREENING LOW DOSE (04/12/2024 4:12 PM EDT) Anatomical Region Laterality Modality Computed Tomogra phy 04/12/2024 3:30 PM EDT Narrative 04/12/2024 4:12 PM EDT [facility] Diagnostic Imaging Department [address] [place] [id number] Patient: ??TEJAL ESTRADA ?/Age/Sex: 1955 - 69 - F Unit#: ??[id number] ? Location/Status: ??SPDICATLS/REG CLI ? Mnemonic/Ordering Site: ??CTLUNGLD/SPCT Ordering Physician: ??JASON TAMAYO MD CT Lung Screening Low Dose - 04/12/24 - 1534 Report Status:Signed Chest CT, 04/12/2024 4:08 PM. TECHNIQUE: Low-dose CT of the chest without intravenous contrast administration. ??Coronal and sagittal reformats and MIP reconstructions were created. Dose length product: 163 mGy-cm. HISTORY: ANNUAL SCREENING COMPARISON: 04/07/2023. FINDINGS: Lungs/pleura: The central airways are clear and normal in caliber. ??Very mild centrilobular emphysema. ??Scattered calcified granulomas. ??There are a few scattered small pulmonary nodules, measuring 2 mm or less. ??Benign fissural nodule on the left. ??No pleural effusion or pneumothorax. Mediastinum/ervin: No mediastinal mass or lymphadenopathy. ??No appreciable hilar lymphadenopathy on limited noncontrast evaluation. Cardiac: Prominent coronary artery calcifications. ??Normal heart size. ??Trace pericardial fluid. Chest wall: No mass or lymphadenopathy. Limited abdomen: Normal. Bones: Remote fracture deformities of several left lateral ribs. ??Mild degenerative changes of the spine. ??Butterfly vertebral body at T8. IMPRESSION: Lung RADS 2. ??Guidelines recommend repeat low-dose screening CT in 12 months. Dictating Physician: ??ARUN BENNETT MD Electronically Signed by: ??ARUN BENNETT MD Dic Date/Time: ??04/12/24 1608 Sign date/Time: ??04/12/24 1612 Procedure Note Arun Bennett MD - 04/19/2024 [facility] Diagnostic Imaging Department [address] [place] [id number] Patient: [facility]JAL [facility]ADA [facility] /Age/Sex: 1955 - 69 - F Unit#: [id number] [facility] Ordering Physician: JASON TAMAYO MD CT Lung Screening Low Dose - 04/12/24 - 1534 Report Status:Signed Chest CT, 04/12/2024 4:08 PM. TECHNIQUE: Low-dose CT of the chest without intravenous contrast administration. Coronal and sagittal reformats and MIP reconstructionswere created. Dose length product: 163 mGy-cm. HISTORY: ANNUAL SCREENING COMPARISON: 04/07/2023. FINDINGS: Lungs/pleura: The central airways are clear and normal in caliber. Verymild centrilobular emphysema. Scattered calcified granulomas. There are afew scattered small pulmonary nodules, measuring 2 mm or less. Benignfissural nodule on the left. No pleural effusion or pneumothorax. Mediastinum/ervin: No mediastinal mass or lymphadenopathy. No appreciablehilar lymphadenopathy on limited noncontrast evaluation. Cardiac: Prominent coronary artery calcifications. Normal heart size.Trace pericardial fluid. Chest wall: No mass or lymphadenopathy. Limited abdomen: Normal. Bones: Remote fracture deformities of several left lateral ribs. Mild degenerative changes of the spine. Butterfly vertebral body at T8. IMPRESSION: Lung RADS 2. Guidelines recommend repeat low-dose screening CT in 12months. Dictating Physician: ARUN BENNETT MD Electronically Signed by: ARUN BENNETT MD Dic Date/Time: 04/12/24 1608 Sign date/Time: 04/12/24 1612 Jason Tamayo MD IMG CT PROCEDURES Final Result * DXA BONE DENSITY STUDY 1+ SITS AXIAL SKEL (06/18/2020 11:06 AM EST) Anatomical Region Laterality Modality Bone Densitometr y 03/08/2020 10:1 6 AM EDT Narrative 06/18/2020 3:28 PM EST BONE DENSITY SCAN (DEXA): FINDINGS: Lumbar Spine T-score is -1.3. ?? (SD relative to 20-29 y/o adult) Z-score is 0.4. ??(SD relative to age matched peers) This is considered osteopenia by WHO criteria. Left Hip T-score is -2.1. Z-score is -0.6. This is considered osteopenia by WHO criteria. Comparison exam(s): None. Survey view of the lateral thoracolumbar spine shows no significant compression deformities. IMPRESSION: IMPRESSION: Osteopenia by WHO criteria. This patient has a 18% risk of major osteoporotic fracture and a 4.3% risk of hip fracture over the next 10 years. (World Health Organization Fracture Risk Assessment) [facility] Department of Internal Medicine recommends using National Osteoporosis Foundation (NOF) guidelines in treatment decisions related to osteoporosis. NOF guidelines suggest considering treatment for postmenopausal women and men aged 50 or older presenting with the following: History of hip or vertebral fracture. T-score = -2.5 (DXA) at the femoral neck, total hip, or spine, after appropriate evaluation to exclude secondary causes. Low bone mass (T-score between -1.0 and -2.5 at the femoral neck or spine) AND a 10-year probability of a hip fracture = 3% OR a 10-year probability of a major osteoporosis-related fracture = 20% based on the [place]-adapted WHO algorithm Please note that all treatment decisions require clinical judgment and consideration of individual patient factors, including patient preferences, co-morbidities, previous drug use, risk factors not captured in the FRAX model (e.g., frailty, falls, vitamin D deficiency, increased bone turnover, interval significant decline in bone density) and possible under- or over-estimation of fracture risk by FRAX. Optional alternative screening schedule based on trista Suero., [facility] July 10, 2011 for patients with osteopenia (based on hip BMD T-score) is as follows: * ??advanced osteopenia (T scores -2.00 to -2.49), BMD testing every year * ??moderate osteopenia (T scores -1.50 to -1.99), BMD testing every 5 years mild osteopenia or normal BMD (T scores -1.50 and higher), BMD testing every 15 years Procedure Note Maranda Bryan MD - 06/10/2022 BONE DENSITY SCAN (DEXA): FINDINGS: Lumbar Spine T-score is -1.3. (SD relative to 20-29 y/o adult) Z-score is 0.4. (SD relative to age matched peers) This is considered osteopenia by WHO criteria. Left Hip T-score is -2.1. Z-score is -0.6. This is considered osteopenia by WHO criteria. Comparison exam(s): None. Survey view of the lateral thoracolumbar spine shows no significantcompression deformities. IMPRESSION: IMPRESSION: Osteopenia by WHO criteria. This patient has a 18% risk of majorosteoporotic fracture and a 4.3% risk of hip fracture over the next 10 years. (World HealthOrganization Fracture Risk Assessment) [facility] Department of Internal Medicine recommendsusing National Osteoporosis Foundation (NOF) guidelines in treatment decisions related toosteoporosis. NOF guidelines suggest considering treatment for postmenopausal women and menaged 50 or older presenting with the following: History of hip or vertebral fracture. T-score = -2.5 (DXA) at the femoral neck, total hip, or spine, afterappropriate evaluation to exclude secondary causes. Low bone mass (T-score between -1.0 and -2.5 at the femoral neck or spine)AND a 10-year probability of a hip fracture = 3% OR a 10-year probability of a majorosteoporosis-related fracture = 20% based on the [place]-adapted WHO algorithm Please note that all treatment decisions require clinical judgment andconsideration of individual patient factors, including patient preferences, co- morbidities,previous drug use, risk factors not captured in the FRAX model (e.g., frailty, falls, vitaminD deficiency, increased bone turnover, interval significant decline in bone density) andpossible under- or over-estimation of fracture risk by FRAX. Optional alternative screening schedule based on trista Suero., [place] 2011 for patients with osteopenia (based on hip BMD T-score) is as follows: * advanced osteopenia (T scores -2.00 to -2.49), BMD testing every year * moderate osteopenia (T scores -1.50 to -1.99), BMD testing every 5years mild osteopenia or normal BMD (T scores -1.50 and higher), BMD testingevery 15 years John Cerrato MD IM DXA PROCEDURES Final Res ult from Last 3 Months or Most Recently Relevant to Health Maintenance Insurance [facility] MEDICARE Care Teams Knock Out Hand Relationship Specialty Start Date End Date Ej Ceron [address] [place] [address] PCP - General Internal Medicine 07/19/24
--- OUTSIDE RECORDS SUMMARY | 2024-09-08 12:51 | XMS_ITS | Encounter Summary ---
Author Organization [employer] Address [address] [facility] [address] [address] Care Team Providers Care Engineering Teacher Name Role Phone Ej Ceron MD Primary Care Prov ider Reason for Referral * Consultation (Routine) - Authorized Specialty Diagnoses / Procedures Referred By Vlad cabrera Referred To Contact Orthopaedic Surgery Diagnoses Chronic left shoulder pain Ej Ceron MD [address] [place] [address] Phone: tel: fax: [facility] [address] [place] [address] Phone: tel: Referral ID Status Reason Start Date Expiration Date Visits Requested Visits Authorized [id number] Authorized Specialty Services Required 08/03/2024 08/03/2025 1 1 * Consultation (Routine) - Authorized Specialty Diagnoses / Procedures Referred By Vlad cabrera Referred To Contact Gastroenterology Diagnoses Pharyngeal dysphagia Ej Ceron MD [address] [place] [address] Phone: tel: fax: Shawn Breaux MD [address] [address] Phone: tel: fax: Referral ID Status Reason Start Date Expiration Date Visits Requested Visits Authorized [id number] Authorized Specialty Services Required 08/03/2024 08/03/2025 1 1 Encounter Details Date Type Department Care Team (Latest Contact Info) Description 08/02/2024 3:30 PM EST Office Visit [facility] [address] [place] [address] Ej Ceron MD [address] [place] [address] Acquired hypothyroidism (Primary Dx); Dietary counseling; Exercise counseling; Gastroesophageal reflux disease without esophagitis; Age-related osteoporosis without current pathological fracture; Mixed hyperlipidemia; Major depressive disorder in full remission, unspecified whether recurrent (CMS/HCC); Chronic left shoulder pain; Pharyngeal dysphagia Social History Tobacco Use Types Packs/Day Years [...] is your housing situation today? I have wilfredobrandon juarez 05/17/[address] you [...] PM EST documented as of this encounter Last Filed Vital Signs Vital Sign Reading Time Taken Comments Blood Pressure 132/76 08/02/2024 3:29 PM EST Pulse 88 08/02/2024 3:29 PM EST Temperature 36.1 ??C (96.9 ??F) 08/02/2024 3:29 PM ES T Respiratory Rate 20 08/02/2024 3:29 PM EST Oxygen Saturation - - Inhaled Oxygen Concentration - - Weight 82.7 kg (182 lb 6.4 oz) 08/02/2024 3:29 P M EST Height 170.2 cm (5' 7 ) 08/02/2024 3:29 PM EST Body Mass Index 28.57 08/02/2024 3:29 PM EST documented in this encounter Progress Notes * Ej Shen MD - 08/02/2024 3:30 PM EST Subjective Patient ID: Tejal Steward is a 69 y.o. female who presents for No chief complaint on file.. Thyroid Problem Presents for follow-up visit. Patient reports no diaphoresis, fatigue or palpitations. The symptomshave been stable. Review of Systems Constitutional: Negative for diaphoresis and fatigue. Respiratory: Negative for cough and shortness of breath. Cardiovascular: Negative for chest pain and palpitations. Objective Physical Exam Constitutional: Appearance: Normal appearance. HENT: Right Ear: Tympanic membrane, ear canal and external ear normal. There is no impacted cerumen. Left Ear: Tympanic membrane, ear canal and external ear normal. There is no impacted cerumen. Cardiovascular: Rate and Rhythm: Normal rate and regular rhythm. Heart sounds: No murmur heard. Pulmonary: Effort: Pulmonary effort is normal. No respiratory distress. Breath sounds: No stridor. No wheezing or rhonchi. Abdominal: General: Abdomen is flat. There is no distension. Palpations: There is no mass. Tenderness: There is no abdominal tenderness. Hernia: No hernia is present. Musculoskeletal: General: Tenderness present. Cervical back: Normal range of motion. No rigidity or tenderness. Lymphadenopathy: Cervical: No cervical adenopathy. Neurological: General: No focal deficit present. Mental Status: She is alert and oriented to person, place, and time. Psychiatric: Mood and Affect: Mood normal. Behavior: Behavior normal. Assessment/Plan Problem List Items Addressed This Visit Acquired hypothyroidism - Primary On levothyroxine, will order new labs for guidance of therapy Relevant Orders CBC auto differential Comprehensive Metabolic Panel Lipid Panel, Standard TSH W/Reflex to FT4 Hemoglobin A1c Hepatitis C Antibody with Reflex to HCV, RNA, Quantitative, Real-Time PCR Pharyngeal dysphagia Will refer to gi, complains of feeling solid getting stuck Relevant Orders Referral to Gastroenterology Chronic left shoulder pain Chronic left shoulder pain, will order xray and will refer to ortho, she had surgery done on right shoulder due to similar symptoms Relevant Orders XR Shoulder 2+ Views Left Referral to Orthopaedic Surgery Other Visit Diagnoses Dietary counseling Exercise counseling Gastroesophageal reflux disease without esophagitis Age-related osteoporosis without current pathological fracture Mixed hyperlipidemia Major depressive disorder in full remission, unspecified whether recurrent (CMS/HCC) * Liss Staples RN - 08/02/2024 3:30 PM EST TC to patient. Reviewed results and recommendations. All questions and concerns were addressed. Patient agreed to repeat labs in 2 months. documented in this encounter Miscellaneous Notes * Assessment & Plan Note - Ej Shen MD - 08/03/2024 10:02 AM ESTAssociated Problem(s): Chronic left shoulder pain Chronic left shoulder pain, will order xray and will refer to ortho, she had surgery done on right shoulder due to similar symptoms * Assessment & Plan Note - Ej Shen MD - 08/03/2024 10:00 AM ESTAssociated Problem(s): Pharyngeal dysphagia Will refer to gi, complains of feeling solid getting stuck * Assessment & Plan Note - Ej Shen MD - 08/03/2024 9:59 AM ESTAssociated Problem(s): Acquired hypothyroidism On levothyroxine, will order new labs for guidance of therapy documented in this encounter Plan of Treatment Scheduled Referrals Name Type Priority Associated Diagnoses Order Schedule Referral to Gastroenterology Outpatient Referral Routine Pharyngeal dysphagia Expected: 08/03/2024 (Approximate), Expires: 08/03/2025 Referral to Orthopaedic Surgery Outpatient Referral Routine Chronic left shoulder pain Expected: 08/03/2024 (Approximate), Expires: 08/03/2025 documented as of this encounter Procedures Procedure Name Priority Date/Time Associated Diagnosis Comments TSH W/REFLEX TO FT4 Routine 09/05/2024 1 1:01 AM EDT Acquired hypothyroidism CBC WITH AUTO DIFFERENTIAL Routine 09/05/2024 11:01 AM EDT Acquired hypothyroidism HEPATITIS C AB W/REFL TO HCV RNA, QN, PCR Routine 09/05/2024 11:01 AM EDT Acquired hypothyroidism HEMOGLOBIN A1C Routine 09/05/2024 11:01 AM EDT Acquired hypothyroidism LIPID PANEL, STANDARD Routine 09/05/2024 11:01 AM EDT Acquired hypothyroidism COMPREHENSIVE METABOLIC PANEL Routine 09/05/2024 11:01 AM EDT Acquired hypothyroidism XR SHOULDER 2+ VIEWS LEFT Routine 08/12/2024 Chronic left shoulder pain documented in this encounter Results * Hepatitis C Antibody with Reflex to HCV, RNA, Quantitative, Real-Time PCR (09/05/2024 11:01 AM EDT) Hepatitis C Antibody Nonreactive Nonreactive [facility] Comment:Antibodies to HCV no t detected; does not exclude early acuteHCV infection. Blood Venous blood specimen / Unknown 09/05/2024 11:01 AM EDT 09/05/2024 2:19 PM EDT Ej Shen MD LAB BLOOD ORDERABL ES Final Result Performing Organization Address [facility] Co de Phone Number [facility] [address] [place] [phone] * Hemoglobin A1c (09/05/2024 11:01 AM EDT) Hemoglobin A1c 5.4 <6.0 % [facility] Comment:Hemoglobin A1C Refer ence Range Adults: 4.8 - 6.0 % Non diabetic: < 6.0 % Goal: < 7.0 %Additional Action Suggested: > 8.0 %Note: Hemoglobin A1c results are invalid for patients with abnormal amounts of HbF. Blood transfusions may impact the HbA1c concentration in the patient sample. Estimated Average Glucose 108 mg/dL [facility] Comment:eAG = Estimated ave rage glucose which is %A1C expressed asaverage glucose, using the formula of the B9E-KaksrgiUzlwhvs Glucose study (ADAG), Diabetes Care, Vol.31,#8,2007 Blood Venous blood specimen / Unknown 09/05/2024 11:01 AM EDT 09/05/2024 2:19 PM EDT Ej Shen MD LAB BLOOD ORDERABL ES Final Result Performing Organization Address [facility] Co de Phone Number [facility] [address] [place] [phone] * (ABNORMAL) TSH W/Reflex to FT4 (09/05/2024 11:01 AM EDT) TSH reflex Free T4 13.05(H) 0.32 - 4.0 uIU/mL [facility] Blood Venous blood specimen / Unknown 09/05/2024 11:01 AM EDT 09/05/2024 2:19 PM EDT Ej Shen MD LAB BLOOD ORDERABL ES Final Result Performing Organization Address [facility]/ZIP Co de Phone Number [facility] [address] [place] [address] [phone] * Lipid Panel, Standard (09/05/2024 11:01 AM EDT) Triglycerides 107 <150 mg/dL [facility] Comment:Desirable Triglyceri de: less than 150 mg/dLBorderline High Triglyceride 150-199 mg/dLHigh Triglyceride: 200-499 mg/dLVery High Triglyceride: greater than or equal to 5OO mg/dL Cholesterol 163 <200 mg/dL [facility] Comment:Desirable Cholestero l: less than 200 mg/dLBorderline High Cholesterol: 200-239 mg/dLHigh Cholesterol: greater than 239 mg/dL LDL Cholesterol Calculated 96 <100 mg/dL [facility] Comment:Desirable LDL: less than 100 mg/dLNear Optimal/Above Optimal LDL: 110- 129 mg/dLBorderline High LDL: 130-159 mg/dLHigh LDL: 160-189 mg/dLVery High LDL: greater than or equal to 190 mg/dL HDL Cholesterol 46 >40 mg/dL [facility] Comment:Desirable HDL: great er than 40 mg/dL Note: This HDL assay may give artificially low results in patients with liver disease. Blood Venous blood specimen / Unknown 09/05/2024 11:01 AM EDT 09/05/2024 2:19 PM EDT Ej Shen MD LAB BLOOD ORDERABL ES Final Result Performing Organization Address City/[facility]/ZIP Co de Phone Number [facility] [address] [place] [address] [phone] * (ABNORMAL) Comprehensive Metabolic Panel (09/05/2024 11:01 AM EDT) Sodium 139 135 - 145 mmol/L [facility] Potassium 4.7 3.3 - 5.1 mmol/L [facility] Chloride 108 96 - 108 mmol/L [facility] Carbon Dioxide 25 22 - 29 mmol/L [facility] Anion Gap 11(L) 12 - 20 [facility] Urea Nitrogen (BUN) 14 9 - 16 mg/dL [facility] Creatinine, Serum 0.92 0.5 - 1.4 mg/dL [facility] Estimated Glomerular Filt Rate >60 [facility] Comment:Chronic Kidney Disea se: Estimated GFR < 60 mL/min/1.79d4Gtuaro Kidney Disease: Estimated GFR < 15 mL/min/1.73m2 Glucose 79 60 - 115 mg/dL [facility] Calcium 9.2 8.4 - 10.2 mg/dL [facility] Bilirubin, Total 0.4 0.0 - 1.0 mg/dL [facility] Aspartate Amino Transferase 21 5 - 31 U/L [facility] Alanine Aminotransferase 15 0 - 31 U/L [facility] Total Protein 6.9 6.5 - 8.0 g/dL [facility] Albumin Level 4.0 3.5 - 5.0 g/dL [facility] Alkaline Phosphatase 97 39 - 117 U/L [facility] Blood Venous blood specimen / Unknown 09/05/2024 11:01 AM EDT 09/05/2024 2:19 PM EDT us Ej Shen MD LAB BLOOD ORDERABL ES Final Result [facility] [address] [place] [phone] * CBC auto differential (09/05/2024 11:01 AM EDT) White Blood Count 6.5 4.8 - 10.8 X10*3/uL [facility] Red Blood Count 4.72 4.20 - 5.50 X10*6/uL [facility] Hemoglobin 13.8 12.0 - 16.0 g/dl [facility] Hematocrit 42.6 37.0 - 47.0 % [facility] Mean Corpuscular Volume 90.3 80.0 - 98.0 fL [facility] Mean Corpuscular Hemoglobin 29.2 27.0 - 33.0 pg [facility] Mean Corpuscular HGB Conc 32.4 31.0 - 35.0 g/dl [facility] Red Cell Distribution Width 13.2 11.0 - 16.0 % [facility] Platelet Count 381 160 - 400 X10*3/uL [facility] Mean Platelet Volume 10.7 9.4 - 12.3 fL [facility] Neutrophils Percent Auto 55.8 45 - 73 % [facility] Imm Gran Pct Auto 0.2 0.0 - 0.4 % [facility] Lymphocytes Percent Auto 32.7 20 - 40 % [facility] Monocytes Percent Auto 6.8 2 - 11 % [facility] Eosinophils Percent Auto 3.4 0 - 4 % [facility] Basophils Percent Auto 1.1 0 - 2 % [facility] NRBC Pct Auto 0.0 0.0 - 0.2 /100WBC [facility] Neutrophils Absolute Auto 3.6 2.0 - 8.3 x10*3/uL [facility] Imm Gran Abs Auto 0.01 0.00 - 0.03 X10*3/uL [facility] Lymphocytes Absolute Auto 2.1 1.2 - 4.9 X10*3/uL [facility] Monocytes Absolute Auto 0.4 0.1 - 1.2 X10*3/uL [facility] Eosinophils Absolute Auto 0.2 0.0 - 0.4 X10*3/uL [facility] Basophils Absolute Auto 0.1 0.0 - 0.2 X10*3/uL [facility] NRBC Abs Auto 0.000 0.0 - 0.012 X10*3/uL [facility] Blood Venous blood specimen / Unknown 09/05/2024 11:01 AM EDT 09/05/2024 2:19 PM EDT us Ej Shen MD LAB BLOOD ORDERABL ES Final Result Performing Organization Address City/State/[facility] Co de Phone Number [facility] [address] [place] [phone] [phone] * XR Shoulder 2+ Views Left (08/12/2024) Anatomical Region Laterality Modality Upper Extremities, Shoulder Left Radi ographic Imaging Ej Shen MD IMG XR PROCEDURES Final Result documented in this encounter Visit Diagnoses Diagnosis Acquired hypothyroidism- Primary Unspecified hypothyroidism Dietary counseling Dietary surveillance and counseling Exercise counseling Gastroesophageal reflux disease without esophagitis Esophageal reflux Age-related osteoporosis without current pathological fracture Mixed hyperlipidemia Major depressive disorder in full remission, unspecified whether recurrent (CMS/HCC) Chronic left shoulder pain Pain in joint, shoulder region Pharyngeal dysphagia Dysphagia, pharyngeal phase documented in this encounter Additional Health Concerns Assessment Noted Time PHQ-9 Depression Total Score: 0 05/17/20 24 2:24 PM EST documented as of this encounter Care Teams Engineering Teacher Relationship Specialty Start Date End Date Ej Ceron MD [address] [place] [phone] PCP - General Internal Medicine 06/08/24 documented as of this encounter
--- OUTSIDE RECORDS SUMMARY | 2024-09-08 12:51 | XMS_ITS | Clinical Summary ---
Author Organization [employer] Address [address] [facility] 7t [place] [address] Care Team Providers Care Vp Strategic Planning Name Role Phone Ej Ceron MD Primary Care Prov ider Allergies Active Allergy Reactions Criticality Noted Date Comments Sulfamethoxazole-Trimethoprim Rash Low 2023 Morphine Nausea 05/17/2024 Medications CITRULLINE 1000 PO Take 1,000 mg by mouth Once per day. Active buPROPion (Zyban) 150 MG 12 hr tablet Take 150 mg by mouth 2 times daily. Do not crush, chew, or split. Active omeprazole (PriLOSEC) [address] capsule Take 40 mg by mouth before breakfast. Do not crush or chew. Active atorvastatin (Lipitor) 80 MG tablet Take 80 mg by mouth Once per day. Active traMADol (Ultram) 50 MG tablet Take 50 mg by mouth every 12 (twelve) hours if needed for severe pain. Active aspirin 81 MG EC tablet Take 81 mg by mouth Once per day. Active alendronate (Fosamax) 70 MG tablet Take 70 mg by mouth every 7 (seven) days. Take in the morning with a full glass of water, on an empty stomach, and do not take anything else by mouth or lie down for the next 30 min. Active traMADol (Ultram) 50 MG tabletIndicati ons:Chronic midline low back pain without sciatica Take 1 tablet (50 mg) by mouth every 12 (twelve) hours if needed for severe pain for up to 28 days. Do not start before August 11, 2024. 56 tablet 08/11/19 25 025 Active gabapentin (Neurontin) 100 MG capsule Take 2 capsules (200 mg) by mouth 3 times daily. 56 capsule 08/10/19 25 Active levothyroxine (Synthroid, Levoxyl) 88 MCG tablet TAKE 1 TABLET(88 MCG) BY MOUTH BEFORE BREAKFAST 90 tablet 3 09/07/19 25 Active levothyroxine (Synthroid, Levoxyl) 75 MCG tablet Take 75 mcg by mouth before breakfast. 025 Discontinued(Re order (will not trigger notification to Pharmacy)) gabapentin (Neurontin) 100 MG capsule Take 200 mg by mouth 3 times daily. 025 Discontinued(Re order (will not trigger notification to Pharmacy)) traMADol (Ultram) 50 MG tabletIndicati ons:Chronic midline low back pain without sciatica Take 1 tablet (50 mg) by mouth every 12 (twelve) hours if needed for severe pain for up to 28 days. 56 tablet 07/15/19 25 025 Discontinued(Re order (will not trigger notification to Pharmacy)) levothyroxine (Synthroid, Levoxyl) 88 MCG tablet Take 1 tablet (88 mcg) by mouth before breakfast. 30 tablet 1 09/06/19 25 025 Discontinued Active Problems Problem Noted Date Diagnosed Date Acquired hypothyroidism 08/03/2024 Assessment & Plan (08/03/2024 9:59 AM EST): On levothyroxine, will order new labs for guidance of therapy Pharyngeal dysphagia 08/03/2024 Assessment & Plan (08/03/2024 10:00 AM EST): Will refer to gi, complains of feeling solid getting stuck Chronic left shoulder pain 08/03/2024 Assessment & Plan (08/03/2024 10:02 AM EST): Chronic left shoulder pain, will order xray and will refer to ortho, she had surgery done on right shoulder due to similar symptoms Encounter for medical examination to establish c are 07/08/2024 Assessment & Plan (07/08/2024 3:21 PM EST): Last pcp follow up over 3 months Er visit: April 2023 URI viral syndrome Hospitaliztion: - Pmhx: hypothyroidism, GERD, Hyperlipidemia,OA Pshx: bowel resection 2002 due to diverticulitis, right shoulder 2008 All: morphine/bactrim Meds: as above A0 [id number] Had colonoscopy 7-8 years ago, will review gi consult Encounter for screening mamm ogram for malignant neoplasm of breast 07/08/2024 Assessment & Plan (07/08/2024 3:22 PM EST): Will order a breast mammogram Menopause 07/08/2024 Assessment & Plan (07/08/2024 3:23 PM EST): Will order a bone density scan Encounters Date Type Department Care Team Description 09/06/2024 Refill [facility] [address] [place] [address] Ej Ceron MD 09/05/2024 Orders Only [facility] [address] [place] [address] Ej Ceron MD Acquired hypothyroidism (Primary Dx) 09/05/2024 Orders Only [facility] [address] [place] [address] Ej Ceron MD 08/10/2024 Refill [facility] [address] [place] [address] Ej Ceron MD 08/10/2024 Refill [facility] [address] [place] [address] Ej Ceron MD Chronic midline low back pain without sciatica 08/04/2024 Orders Only [facility] [employer] [address] [place] [address] [phone] Charlotte Wong MD 08/02/2024 3:30 PM EST Office Visit [facility] [address] [place] [address] Ej Ceron MD Acquired hypothyroidism (Primary Dx); Dietary counseling; Exercise counseling; Gastroesophageal reflux disease without esophagitis; Age-related osteoporosis without current pathological fracture; Mixed hyperlipidemia; Major depressive disorder in full remission, unspecified whether recurrent (CMS/HCC); Chronic left shoulder pain; Pharyngeal dysphagia 08/02/2024 Travel 07/14/2024 Refill [facility] [address] [place] [address] [phone] jE Ceron MD Chronic midline low back pain without sciatica from Last 3 Months Immunizations Name Administration Dates Next Due Influenza Injectable Quadriv alant Preservative Free IIV4 MDCK 05/13/2021,03/08/2020 Influenza, High Dose Seasonal, Preservative Free 07/17/2023,04/17/2022 Influenza, seasonal, injectable, preservative fr ee 04/08/2024 Pfizer Covid-19 Vaccine 12+ 07/06/2023 Pneumococcal Conjugate PCV 20 07/27/2023 RSV Adjuvant 07/27/2023 TD (adult), 2 Lf tetanus tox oid, preservative free, adsorbed 02/14/2010 Tdap 12/18/2020 Zoster, Recombinant 07/27/2023,07/06/2023 Family History Medical History Relation Name Comments Alzheimer's disease Brother Hypertension Father fro m pneumonia complication on 1984 Heart disease Mother Breast cancer Sister Relation Name Status Comments Brother Father Mother Sister Social History Tobacco Use Types Packs/Day Years Used Date Smoking Tobacco: Former Cigarettes 0.5 46 S tarted: 1976 Smokeless Tobacco: Never Tobacco Cessation:Counseling Given: Not Answered Alcohol Use Standard Drinks/Week Comments Yes 0 [...] Don't know 05/17/2024 12 :03 PM EST Last Filed Vital Signs Vital Sign Reading [...] Mass Index 28.57 08/02/2024 3:29 PM EST Plan of Treatment Health Maintenance Due Date Last Done Comments CT Colonography 1957 Colonoscopy 1957 Colorectal Cancer Screening 1957 FIT DNA/Cologuard 1957 FIT 1957 FOBT 1957 Sigmoidoscopy 1957 Zoster Vaccines (2 of 2) 09/21/2023 07/27/2023, 06/22 COVID-19 Vaccine ( season) 2024 07/27/2023, 07/06/2023, 05/21/2022, Additional history exists Depression Screening 05/17/2025 05/17/2024, 05/17/20 24 SDOH Screening 05/17/2025 05/17/2024 Tobacco Screening 07/08/2025 07/08/2024 Alcohol/Substance Use Screening 08/02/2025 08/02/2024 Mammogram 08/02/2026 08/02/2024, 08/02/2024 DTaP/Tdap/Td Vaccines (2 - Td or Tdap) 12/18/2030 12/18/2020, 02/14/2010 Pneumococcal Vaccine: 50+ Years Completed 07/27/2023 RSV Patients and Patients Aged 60 years or older Completed 07/27/2023 Influenza Vaccine Completed 04/08/2024, , 04/17/2022, Additional history exists Hepatitis C Screening Completed 09/05/2024 HIB Vaccines Aged Out No longer eligi [...] patient's age to complete this topic Meningococcal Vaccine Aged Out No jeanne jonathan eligible based on patient's age to complete this topic RSV under 20 months Aged Out No longe r eligible based on patient's age to complete this topic Rotavirus Vaccines Aged Out No longer eligible based on patient's age to complete this topic Procedures Procedure Name Priority Date/Time Associated Diagnosis Comments T4, FREE Routine 09/05/2024 11:01 AM EDT HEPATITIS C AB W/REFL TO HCV RNA, QN, PCR Routine 09/05/2024 11:01 AM EDT Acquired hypothyroidism HEMOGLOBIN A1C Routine 09/05/2024 11:01 AM EDT Acquired hypothyroidism TSH W/REFLEX TO FT4 Routine 09/05/2024 1 1:01 AM EDT Acquired hypothyroidism LIPID PANEL, STANDARD Routine 09/05/2024 11:01 AM EDT Acquired hypothyroidism COMPREHENSIVE METABOLIC PANEL Routine 09/05/2024 11:01 AM EDT Acquired hypothyroidism CBC WITH AUTO DIFFERENTIAL Routine 09/05/2024 11:01 AM EDT Acquired hypothyroidism XR SHOULDER 2+ VIEWS LEFT Routine 08/12/2024 Chronic left shoulder pain MM DIGITAL MAMMO BILATERAL Routine 08/02/2024 1:09 PM EST from Last 3 Months Results * (ABNORMAL) TSH W/Reflex to FT4 (09/05/2024 11:01 AM EDT) TSH reflex Free T4 13.05(H) 0.32 - 4.0 uIU/mL [facility] Blood Venous blood specimen / Unknown 09/05/2024 11:01 AM EDT 09/05/2024 2:19 PM EDT us Ej Shen MD LAB BLOOD ORDERABL ES Final Result [facility] [address] [place] [phone] * CBC auto differential (09/05/2024 11:01 AM EDT) White Blood Count 6.5 4.8 - 10.8 X10*3/uL [facility] Red Blood Count 4.72 4.20 - 5.50 X10*6/uL [facility] Hemoglobin 13.8 12.0 - 16.0 g/dl [facility] Hematocrit 42.6 37.0 - 47.0 % [facility] Mean Corpuscular Volume 90.3 80.0 - 98.0 fL [facility] Mean Corpuscular Hemoglobin 29.2 27.0 - 33.0 pg [facility] Mean Corpuscular HGB Conc 32.4 31.0 - 35.0 g/dl [facility] Red Cell Distribution Width 13.2 11.0 - 16.0 % [facility] Platelet Count 381 160 - 400 X10*3/uL [facility] Mean Platelet Volume 10.7 9.4 - 12.3 fL [facility] Neutrophils Percent Auto 55.8 45 - 73 % [facility] Imm Gran Pct Auto 0.2 0.0 - 0.4 % [facility] Lymphocytes Percent Auto 32.7 20 - 40 % [facility] Monocytes Percent Auto 6.8 2 - 11 % [facility] Eosinophils Percent Auto 3.4 0 - 4 % [facility] Basophils Percent Auto 1.1 0 - 2 % [facility] NRBC Pct Auto 0.0 0.0 - 0.2 /100WBC [facility] Neutrophils Absolute Auto 3.6 2.0 - 8.3 x10*3/uL [facility] Imm Gran Abs Auto 0.01 0.00 - 0.03 X10*3/uL [facility] Lymphocytes Absolute Auto 2.1 1.2 - 4.9 X10*3/uL [facility] Monocytes Absolute Auto 0.4 0.1 - 1.2 X10*3/uL [facility] Eosinophils Absolute Auto 0.2 0.0 - 0.4 X10*3/uL [facility] Basophils Absolute Auto 0.1 0.0 - 0.2 X10*3/uL [facility] NRBC Abs Auto 0.000 0.0 - 0.012 X10*3/uL [facility] Blood Venous blood specimen / Unknown 09/05/2024 11:01 AM EDT 09/05/2024 2:19 PM EDT us Ej Shen MD LAB BLOOD ORDERABL ES Final Result [facility] [address] [place] [phone] * Hepatitis C Antibody with Reflex to HCV, RNA, Quantitative, Real-Time PCR (09/05/2024 11:01 AM EDT) Hepatitis C Antibody Nonreactive Nonreactive [facility] Comment:Antibodies to HCV no t detected; does not exclude early acuteHCV infection. Blood Venous blood specimen / Unknown 09/05/2024 11:01 AM EDT 09/05/2024 2:19 PM EDT Ej Shen MD LAB BLOOD ORDERABL ES Final Result Performing Organization Address [facility] de Phone Number [facility] [address] [place] [phone] * T4, Free (09/05/2024 11:01 AM EDT) Free T4 (Free Thyroxine) 1.13 0.71 - 1.85 ng/dL [facility] 09/05/2024 11:0 1 AM EDT 09/05/2024 2:19 PM EDT Ej Shen MD LAB BLOOD ORDERABL ES Final Result Performing Organization Address [facility] [address] [place] [phone] * Hemoglobin A1c (09/05/2024 11:01 AM EDT) Hemoglobin A1c 5.4 <6.0 % [facility] Comment:Hemoglobin A1C Refer ence Range Adults: 4.8 - 6.0 % Non diabetic: < 6.0 % Goal: < 7.0 %Additional Action Suggested: > 8.0 %Note: Hemoglobin A1c results are invalid for patients with abnormal amounts of HbF. Blood transfusions may impact the HbA1c concentration in the patient sample. Estimated Average Glucose 108 mg/dL [facility] Comment:eAG = Estimated ave rage glucose which is %A1C expressed asaverage glucose, using the formula of the R5D-EkkyrxaHkxxikh Glucose study (ADAG), Diabetes Care, Vol.31,#8,2007 Blood Venous blood specimen / Unknown 09/05/2024 11:01 AM EDT 09/05/2024 2:19 PM EDT Ej Shen MD LAB BLOOD ORDERABL ES Final Result Performing Organization Address [facility] de Phone Number [facility] [address] [place] [phone] * Lipid Panel, Standard (09/05/2024 11:01 AM EDT) Triglycerides 107 <150 mg/dL [facility] Comment:Desirable Triglyceri de: less than 150 mg/dLBorderline High Triglyceride 150-199 mg/dLHigh Triglyceride: 200-499 mg/dLVery High Triglyceride: greater than or equal to 5OO mg/dL Cholesterol 163 <200 mg/dL [facility] Comment:Desirable Cholestero l: less than 200 mg/dLBorderline High Cholesterol: 200-239 mg/dLHigh Cholesterol: greater than 239 mg/dL LDL Cholesterol Calculated 96 <100 mg/dL [facility] Comment:Desirable LDL: less than 100 mg/dLNear Optimal/Above Optimal LDL: 110- 129 mg/dLBorderline High LDL: 130-159 mg/dLHigh LDL: 160-189 mg/dLVery High LDL: greater than or equal to 190 mg/dL HDL Cholesterol 46 >40 mg/dL [facility] Comment:Desirable HDL: great er than 40 mg/dL Note: This HDL assay may give artificially low results in patients with liver disease. Blood Venous blood specimen / Unknown 09/05/2024 11:01 AM EDT 09/05/2024 2:19 PM EDT us Ej Shen MD LAB BLOOD ORDERABL ES Final Result [facility] [address] [place] [phone] * (ABNORMAL) Comprehensive Metabolic Panel (09/05/2024 11:01 AM EDT) Sodium 139 135 - 145 mmol/L [facility] Potassium 4.7 3.3 - 5.1 mmol/L [facility] Chloride 108 96 - 108 mmol/L [facility] Carbon Dioxide 25 22 - 29 mmol/L [facility] Anion Gap 11(L) 12 - 20 [facility] Urea Nitrogen (BUN) 14 9 - 16 mg/dL [facility] Creatinine, Serum 0.92 0.5 - 1.4 mg/dL [facility] Estimated Glomerular Filt Rate >60 [facility] Comment:Chronic Kidney Disea se: Estimated GFR < 60 mL/min/1.08x8Fyqbta Kidney Disease: Estimated GFR < 15 mL/min/1.73m2 Glucose 79 60 - 115 mg/dL [facility] Calcium 9.2 8.4 - 10.2 mg/dL [facility] Bilirubin, Total 0.4 0.0 - 1.0 mg/dL [facility] Aspartate Amino Transferase 21 5 - 31 U/L [facility] Alanine Aminotransferase 15 0 - 31 U/L [facility] Total Protein 6.9 6.5 - 8.0 g/dL [facility] Albumin Level 4.0 3.5 - 5.0 g/dL [facility] Alkaline Phosphatase 97 39 - 117 U/L [facility] Blood Venous blood specimen / Unknown 09/05/2024 11:01 AM EDT 09/05/2024 2:19 PM EDT Ej Shen MD LAB BLOOD ORDERABL ES Final Result Performing Organization Address [facility]/State/ZIP Co de Phone Number [facility] [address] [place] [phone] * XR Shoulder 2+ Views Left (08/12/2024) Anatomical Region Laterality Modality Upper Extremities, Shoulder Left Radi ographic Imaging us Ej Shen MD IMG XR PROCEDURES Final Result * MM DIGITAL MAMMO BILATERAL (08/02/2024 1:09 PM EST) Anatomical Region Laterality Modality Mammography Historical Provider IMG BI PROCEDURES Final R esult from Last 3 Months Insurance [facility] MEDICARE REPLACEMENT Care Teams Vp Strategic Planning Relationship Specialty Start Date End Date Ej Ceron MD [address] [place] [phone] PCP - General Internal Medicine 06/08/24
--- OUTSIDE RECORDS SUMMARY | 2024-09-08 12:51 | XMS_ITS | Encounter Summary ---
Author Organization [employer] Address [address] [facility] 7t [place] [address] Care Team Providers Care Fiber Optic Technician Name Role Phone Ej Ceron MD Primary Care Prov ider Reason for Visit * Reason Onset Date Comments Med Refill 08/10/2024 Encounter Details Date Type Department Care Team (Late st Contact Info) Description 08/10/2024 Refill [facility] [address] [place], [place] [phone] Ej Ceron MD [address] [place] [address] Social History Tobacco Use Types Packs/Day Years [...] PM EST documented as of this encounter Miscellaneous Notes * Telephone Encounter - An Beth - 08/10/2024 11:50 AM EST TC from pt requesting medication refill. Medications needing refill : gabapentin (Neurontin) 100 MG capsule To be sent to: [id number] [facility] documented in this encounter Plan of Treatment Not on file documented as of this encounter Visit Diagnoses Not on filedocumented in this encounter Additional Health Concerns Assessment Noted Time PHQ-9 Depression Total Score: 0 05/17/20 2:24 PM EST documented as of this encounter Care Teams Fiber Optic Technician Relationship Specialty Start Date End Date Ej Ceron MD [address] [place] [phone] PCP - General Internal Medicine 06/08/24 documented as of this encounter
--- OUTSIDE RECORDS SUMMARY | 2024-09-08 12:51 | XMS_ITS | Encounter Summary ---
Author Organization [employer] Address [address] [facility] 7t [place] [address] Care Team Providers Care Fiber Optics Engineer Name Role Phone Ej Ceron MD Primary Care Prov ider Encounter Details Date Type Department Care Team (Late st Contact Info) Description 08/04/2024 Orders Only [facility] [address] [place], [place] [phone] Provider, MD [place] Social History Tobacco Use Types Packs/Day Years [...] is your housing situation today? I have wiflredo juarez 05/17/[address] you [...] as of this encounter Plan of Treatment Not on file documented as of this encounter Procedures Procedure Name Priority Date/Time Associated Diagnosis Comments MM DIGITAL MAMMO BILATERAL Routine 08/02/2024 1:09 PM EST documented in this encounter Results * MM DIGITAL MAMMO BILATERAL (08/02/2024 1:09 PM EST) Anatomical Region Laterality Modality Mammography us Historical Provider MD VALENZUELA BI PROCEDURES Final R esult documented in this encounter Visit Diagnoses Not on filedocumented in this encounter Additional Health Concerns Assessment Noted Time PHQ-9 Depression Total Score: 0 05/17/20 2:24 PM EST documented as of this encounter Care Teams Fiber Optics Engineer Relationship Specialty Start Date End Date Ej Ceron MD [address] [place] [phone] PCP - General Internal Medicine 06/08/24 documented as of this encounter
--- OUTSIDE RECORDS SUMMARY | 2024-09-08 12:51 | XMS_ITS | Encounter Summary ---
Author Organization [employer] Address [address] [facility] 7t [place] [address] Care Team Providers Care Loftsman/Woman Name Role Phone Ej Ceron MD Primary Care Prov ider Reason for Visit * Reason Onset Date Comments Med Refill 08/10/2024 Encounter Details Date Type Department Care Team (Late st Contact Info) Description 08/10/2024 Refill [facility] [address] [place], [place] [phone] Ej Ceron MD [address] [place] [address] Chronic midline low back pain without sciatica Social History Tobacco Use Types Packs/Day Years [...] Telephone Encounter - An Beth - 08/10/2024 11:49 AM EST TC from pt requesting medication refill. Medications needing refill : traMADol (Ultram) 50 MG tablet To be sent to: [id number] - [place], [place] - [address] [place] [address] AT [facility] documented in this encounter Plan of Treatment Not on file documented as of this encounter Visit Diagnoses Diagnosis Chronic midline low back pain without sciatica documented in this encounter Additional Health Concerns Assessment Noted Time PHQ-9 Depression Total Score: 0 05/17/20 2:24 PM EST documented as of this encounter Care Teams Loftsman/Woman Relationship Specialty Start Date End Date Ej Ceron MD [address] [place] [phone] PCP - General Internal Medicine 06/08/24 documented as of this encounter
--- OUTSIDE RECORDS SUMMARY | 2024-09-08 12:51 | XMS_ITS | Encounter Summary ---
Author Organization [facility] [place] [address] Care Team Providers Care Sewer Pipe Layer Helper Name Role Phone Ej Ceron Primary Care Provide r Encounter Details Date Type Department Care Team (Latest Contact Info) Description 08/12/2024 12:50 PM EST - 08/12/2024 11:59 PM EST Hospital Encounter [facility] Xray [address] [place] [phone] Pain in left shoulder; Other chronic pain Discharge Disposition: Home or Self Care Social History Tobacco Use Types Packs/Day Years [...] Orientation Straight 07/19/2024 2: 15 PM EST documented as of this encounter Discharge Disposition Disposition Code Departure Means Destination Home or Self Care documented in this encounter Plan of Treatment Not on file documented as of this encounter Procedures Procedure Name Priority Date/Time Associated Diagnosis Comments XR SHOULDER 2+ VIEWS LEFT Routine 08/12/2024 1:00 PM EST Pain in left shoulder Other chronic pain documented in this encounter Results * XR Shoulder 2+ Views Left (08/12/2024 1:00 PM EST) Anatomical Region Laterality Modality Upper Extremities, Shoulder Left Radi ographic Imaging 08/15/2024 8:04 AM EST Impressions 08/15/2024 8:06 AM EST Normal examination the left shoulder. Incidental note is made of old healed fractures of the left lateral third and fourth ribs. Code 80246 -------- FINAL REPORT -------- Dictated By: Kahlil Torres Dictated Date: 08/15/2024 08:04 ET Assigned Physician: Kahlil Torres Reviewed and Electronically Signed By: Kahlil Torres Signed Date: 08/15/2024 08:06 ET Workstation ID: [id number] Transcribed By: Self Edit Transcribed Date: 08/15/2024 [...] left lateral third and fourth ribs. Code 05770 -------- FINAL REPORT -------- Dictated By: Kahlil Torres Dictated Date: 08/15/2024 08:04 ET Assigned Physician: Kahlil Torres Reviewed and Electronically Signed By: Kahlil Torres Signed Date: 08/15/2024 08:06 ET Workstation ID: [id number] Transcribed By: Self Edit Transcribed Date: 08/15/2024 08:04 ET Ej Shen IMG XR PROCEDURES Fin al Result documented in this encounter Visit Diagnoses Diagnosis Pain in left shoulder Other chronic pain documented in this encounter Care Teams Sewer Pipe Layer Helper Relationship Specialty Start Date End Date Ej Ceron [address] [place] [phone] PCP - General Internal Medicine 07/19/24 documented as of this encounter
--- OUTSIDE RECORDS SUMMARY | 2024-09-08 12:51 | XMS_ITS | Encounter Summary ---
Author Organization [employer] Address [address] [facility] 7t [place] [address] Care Team Providers Care Type Caster Name Role Phone Ej Ceron MD Primary Care Prov ider Encounter Details Date Type Department Care Team (Late st Contact Info) Description 09/05/2024 Orders Only [facility] [address] [place], [place] [phone] Ej Ceron MD [address] [place] [address] Social History Tobacco Use Types Packs/Day Years [...] T4, FREE Routine 09/05/2024 11:01 AM EDT documented in this encounter Results * T4, Free (09/05/2024 11:01 AM EDT) Free T4 (Free Thyroxine) 1.13 0.71 - 1.85 ng/dL [facility] 09/05/2024 11:0 1 AM EDT 09/05/2024 2:19 PM EDT us Ej Shen MD LAB BLOOD ORDERABL ES Final Result [facility] [address] [place] [phone] documented in this encounter Visit Diagnoses Not on filedocumented in this encounter Additional Health Concerns Assessment Noted Time PHQ-9 Depression Total Score: 0 05/17/20 2:24 PM EST documented as of this encounter Care Teams Type Caster Relationship Specialty Start Date End Date Ej Ceron MD [address] [place] [phone] PCP - General Internal Medicine 06/08/24 documented as of this encounter
--- OUTSIDE RECORDS SUMMARY | 2024-09-08 12:51 | XMS_ITS | Encounter Summary ---
Author Organization [employer] Address [address] [facility] [address] [place] [address] Care Team Providers Care Product Development Worker Name Role Phone Ej Ceron MD Primary Care Prov ider Reason for Visit * Reason Onset Date Comments Med Refill 06/08/2024 Encounter Details Date Type Department Care Team (Late st Contact Info) Description 06/08/2024 Telephone [facility] [address] [place] [address] Ej Ceron MD [address] [place], [place] [phone] Med Refill Social History Tobacco Use Types Packs/Day Years [...] encounter Miscellaneous Notes * Telephone Encounter - Duek Kemp - 06/08/2024 12:19 PM EST TC from pt requesting medication refill. Medications needing refill : Tramadol 50 MG 1-2 tablets a Day. To be sent to: [id number] AT [facility] documented in this encounter Plan of Treatment Not on file documented as of this encounter Visit Diagnoses Not on filedocumented in this encounter Additional Health Concerns Assessment Noted Time PHQ-9 Depression Total Score: 0 05/17/20 24 2:24 PM EST documented as of this encounter Care Teams Product Development Worker Relationship Specialty Start Date End Date Ej Ceron MD [address] [place] [phone] PCP - General Internal Medicine 06/08/24 documented as of this encounter
--- OUTSIDE RECORDS SUMMARY | 2024-09-08 12:51 | XMS_ITS | Encounter Summary ---
Author Organization [employer] Address 75 [facility] 7t [place] [address] Care Team Providers Care Purification Operator Helper Name Role Phone Ej Ceron MD Primary Care Prov ider Reason for Visit * Reason Comments Med Refill Encounter Details Date Type Department Care Team (Late st Contact Info) Description 09/06/2024 Refill [facility] [address] [place], [place] [phone] Ej Ceron MD [address] [place] [address] Social History Tobacco Use Types Packs/Day Years [...] documented as of this encounter Care Teams Purification Operator Helper Relationship Specialty Start Date End Date Ej Ceron MD [address] [place] [phone] PCP - General Internal Medicine 06/08/24 documented as of this encounter
== END 2024-09-08 10:56 | disposition home or self-care (01) ==
LOC: HO.US 10:55
PROVIDERS: PCP Internal Medicine; Visit Provider Nurse Practitioner Family
DX: N20.0 Calculus of kidney (principal)
CPT/HCPCS: 76775

== ENCOUNTER → 2024-09-08 10:57 | Outpatient (BNV) | payer MEDICARE, SELFPAY | PROVIDERS: PCP Internal Medicine; Visit Provider Specialist | DX: N20.0 Calculus of kidney (principal) | CPT/HCPCS: 76775 ==

== ENCOUNTER 2024-09-23 08:07 | Outpatient (REF) | payer MEDICARE, SELFPAY ==
--- NOTE | ~2024-09-23 | XR_ITS ---
EXAMINATION: XR SHOULDER 2 OR MORE VIEWS LEFT HISTORY: M25.519 - Pain in unspecified shoulder COMPARISON: There are no prior studies available for comparison. FINDINGS: Three views of the left shoulder are submitted. Osseous mineralization is normal. There is no fracture or dislocation. The glenohumeral joint is maintained. There is mild narrowing of the AC joint. The soft tissues are unremarkable. XR/XR shoulder LT min 2V IMPRESSION: Mild narrowing of the AC joint. Electronically signed by: Shane Rodriguez MD 09/26/2024 08:36 AM EDT
--- OUTSIDE RECORDS SUMMARY | 2024-09-26 08:22 | XMS_ITS | Encounter Summary ---
Author Organization [employer] Address 75 [facility] 7t [place] [address] Care Team Providers Care Repair Manager Name Role Phone Ej Ceron MD Primary Care Prov ider Encounter Details Date Type Department Care Team (Late st Contact Info) Description 08/04/2024 Orders Only [facility] 230 [place] [address] Provider, MD [place] Social History Tobacco Use [...] Upcoming Encounters Date Type Department Care Team ([facility] st Contact Info) Description 09/28/2024 10:00 AM EDT Clinical Support [facility] PEDS 505 [place] [address] Roz Christopher, MARANDA 505 [place] [address] documented as of this encounter Procedures Procedure [...] documented as of this encounter Care Teams Repair Manager Relationship Specialty Start Date End Date Ej Ceron MD 505 [place] [address] PCP - General Internal Medicine 06/08/24 documented as of this encounter
--- OUTSIDE RECORDS SUMMARY | 2024-09-26 08:22 | XMS_ITS | Clinical Summary ---
Author Organization [facility] [employer] [facility] [place] Address [address] [place] [address] Care Team Providers Care Accounts Payable Processor Name Role Phone Ej Ceron Primary Care Provide r Encounters Date Type Department Care Team Description 08/12/2024 12:50 PM EST - 08/12/2024 11:59 PM EST Hospital Encounter [facility] Xray [address] [place] [phone] Pain in left shoulder; Other chronic pain Discharge Disposition: Home or Self Care 08/02/2024 10:44 AM EST - 08/02/2024 11:59 PM EST [facility] [address] [phone] Encounter for screening mammogram for malignant neoplasm [...] left lateral third and fourth ribs. Code 59197 -------- FINAL REPORT -------- Dictated By: Kahlil Torres Dictated Date: 08/15/2024 08:04 ET Assigned Physician: Kahlil Torres Reviewed and Electronically Signed By: Kahlil Torres Signed Date: 08/15/2024 08:06 ET Workstation ID: [id number] Transcribed By: Self Edit Transcribed Date: 08/15/2024 [...] left lateral third and fourth ribs. Code 83082 -------- FINAL REPORT -------- Dictated By: Kahlil Torres Dictated Date: 08/15/2024 08:04 ET Assigned Physician: Kahlil Torres Reviewed and Electronically Signed By: Kahlil Torres Signed Date: 08/15/2024 08:06 ET Workstation ID: [id number] Transcribed By: Self Edit Transcribed Date: 08/15/2024 [...] Signed Date: 08/04/2024 09:29 ET Workstation ID: [id number] Transcribed By: Self Edit Transcribed Date: 08/04/2024 [...] Signed Date: 08/04/2024 09:29 ET Workstation ID: [id number] Transcribed By: Self Edit Transcribed Date: 08/04/2024 09:24 ET us Ej VALENZUELA BI PROCEDURES Fin al Result * CT LUNG SCREENING LOW DOSE (04/12/2024 4:12 PM EDT) Anatomical Region Laterality Modality Computed Tomogra phy 04/12/2024 3:30 PM EDT Narrative 04/12/2024 4:12 PM EDT [facility] Diagnostic Imaging Department [address] [place] [address] [phone] Patient: ??TEJAL ESTRADA ?/Age/Sex: 1955 - 69 - F Unit#: ??[id number] ? Location/Status: ??SPDICATLS/REG CLI ? Mnemonic/Ordering Site: [...] Procedure Note Reginald Bennett MD - 04/19/2024 [facility] Diagnostic Imaging Department [address] [place] [address] Patient: TEJAL ESTRADA [facility] /Age/Sex: 1955 - 69 - F Unit#: [id number] Location/Status: [facility] Mnemonic/Ordering Site: [facility] Ordering Physician: ERMELINDA TAMAYO MD CT [...] by: REGINALD BENNETT MD Dic Date/Time: 04/12/24 1606 Sign date/Time: 04/12/24 1613 Ermelinda Tamayo MD IMG CT PROCEDURES Final [...] (World Health Organization Fracture Risk Assessment) [facility] Department of Internal Medicine recommends using [...] alternative screening schedule based on trista Suero., [facility] July 10, 2011 for patients [...] years. (World HealthOrganization Fracture Risk Assessment) [facility] Department of Internal Medicine recommendsusing National [...] alternative screening schedule based on trista Suero., [facility] for patients with osteopenia (based on hip BMD T-score) is as follows: * advanced osteopenia (T scores -2.00 to -2.49), BMD testing every year * moderate osteopenia (T scores -1.50 to -1.99), BMD testing every 5years mild osteopenia or normal BMD (T scores -1.50 and higher), BMD testingevery 15 years John Cerrato MD [facility] DXA PROCEDURES Final Res ult from Last 3 Months or Most Recently Relevant to Health Maintenance Insurance [facility] [place] [address] Care Teams Accounts Payable Processor Relationship Specialty Start Date End Date Ej Ceron [address] [place] [address] PCP - General Internal Medicine 07/19/24
--- OUTSIDE RECORDS SUMMARY | 2024-09-26 08:22 | XMS_ITS | Encounter Summary ---
Author Organization [employer] Address [address] [facility] [address] 7t [place] [address] Care Team Providers Care Health Evaluator Name Role Phone Ej Ceron MD Primary Care Prov ider Reason for Visit * Reason Onset Date Comments Med Refill 06/08/2024 Encounter Details Date Type Department Care Team (Late st Contact Info) Description 06/08/2024 Telephone [facility] MEDICINE 230 [place] [address] Ej Ceron MD 505 [place], [place] [phone] Med Refill Social History Tobacco Use Types [...] tablets a Day. To be sent to: [id number] - [place], [place] - [address] [facility] AT SEC [facility] & [address] documented in this encounter Plan of Treatment Upcoming Encounters Date Type Department Care Team ([facility] st Contact Info) Description 09/28/2024 10:00 AM EDT Clinical Support [facility] MED & PEDS 505 [place] [address] Roz Christopher RN 505 [place] [address] documented as of this encounter Visit Diagnoses Not on filedocumented in this encounter Additional Health Concerns Assessment Noted Time PHQ-9 Depression Total Score: 0 05/17/20 2:24 PM EST documented as of this encounter Care Teams Health Evaluator Relationship Specialty Start Date End Date Ej Ceron MD 505 [place] [address] PCP - General Internal Medicine 06/08/24 documented as of this encounter
--- OUTSIDE RECORDS SUMMARY | 2024-09-26 08:22 | XMS_ITS | Encounter Summary ---
Author Organization [employer] Address [address] [facility] [address] 7t [place] [address] Care Team Providers Care Field Account Manager Name Role Phone Ej Ceron MD Primary Care Prov ider Reason for Visit * Reason Onset Date Comments Med Refill 09/08/2024 Encounter Details Date Type Department Care Team (Late st Contact Info) Description 09/08/2024 Telephone [facility] MEDICINE 230 [place] [address] Ej Ceron MD 505 [place], [place] [phone] Med Refill Social History Tobacco Use Types [...] 100 MG capsule To be sent to: [facility]- [address] [place] [address] documented in this encounter Plan of Treatment Upcoming Encounters Date Type Department Care Team (Late st Contact Info) Description 09/28/2024 10:00 AM EDT Clinical Support [facility] MED & PEDS 505 [place] [address] Roz Christopher RN 505 [place] [address] documented as of this encounter Visit Diagnoses Not on filedocumented in this encounter Additional Health Concerns Assessment Noted Time PHQ-9 Depression Total Score: 0 05/17/20 2:24 PM EST documented as of this encounter Care Teams Field Account Manager Relationship Specialty Start Date End Date Ej Ceron MD 505 [place] [address] PCP - General Internal Medicine 06/08/24 documented as of this encounter
--- OUTSIDE RECORDS SUMMARY | 2024-09-26 08:22 | XMS_ITS | Encounter Summary ---
Author Organization [employer] Address [address] [facility] 7t [place] [address] Care Team Providers Care Supervisor Warping Department Name Role Phone Ej Ceron MD Primary Care Prov ider Encounter Details Date Type Department Care Team (Late st Contact Info) Description 09/22/2024 Orders Only [facility] MED & PEDS [address] [place], [place] [phone] Ej Ceron MD 505 [place] [address] Chronic left shoulder pain (Primary Dx) Social [...] Description 09/28/2024 10:00 AM EDT Clinical Support [facility] MED & PEDS [address] [place] [address] Roz Christopher RN 505 [place] [address] documented as of this encounter Visit Diagnoses Diagnosis Chronic left shoulder pain- Primary Pain in joint, shoulder region documented in this encounter Additional Health Concerns Assessment Noted Time PHQ-9 Depression Total Score: 0 05/17/20 24 2:24 PM EST documented as of this encounter Care Teams Supervisor Warping Department Relationship Specialty Start Date End Date Ej Ceron MD 505 [place] [address] PCP - General Internal Medicine 06/08/24 documented as of this encounter
--- OUTSIDE RECORDS SUMMARY | 2024-09-26 08:22 | XMS_ITS | Encounter Summary ---
Author Organization [employer] Address [address] 7[address] [place] [address] Care Team Providers Care Mud Analysis Well Logging Captain Name Role Phone Ej Ceron MD Primary Care Prov ider Reason for Visit * Reason Onset Date Comments Medication Question 09/08/2024 Encounter Details Date Type Department Care Team (Late st Contact Info) Description 09/08/2024 Telephone [facility] MEDICINE [address] [place] [address] Ej Ceron MD 505 [place], [place] [phone] Medication Question Social History Tobacco Use Types [...] Description 09/28/2024 10:00 AM EDT Clinical Support [facility] MED & PEDS [address] [place] [address] Roz Christopher, RN [address] [place] [address] documented as of this encounter Visit Diagnoses Not on filedocumented in this encounter Additional Health Concerns Assessment Noted Time PHQ-9 Depression Total Score: 0 11/26/20 24 2:24 PM EST documented as of this encounter Care Teams Mud Analysis Well Logging Captain Relationship Specialty Start Date End Date Ej Ceron MD [address] [place] [phone] PCP - General Internal Medicine 06/08/24 documented as of this encounter
--- OUTSIDE RECORDS SUMMARY | 2024-09-26 08:22 | XMS_ITS | Encounter Summary ---
Author Organization [employer] Address [address] [facility] [address] [address] 7[address] [place] [address] Care Team Providers Care Derrick Boat Lever Operator Name Role Phone Ej Ceron MD Primary Care Prov ider Reason for Visit * Reason Onset Date Comments Med Refill 09/08/2024 Encounter Details Date Type Department Care Team (Late st Contact Info) Description 09/08/2024 Telephone [facility] MEDICINE [address] [place] [address] Ej Ceron MD 505 [place], [place] [phone] Med Refill Social History Tobacco Use Types [...] 50 MG tablet To be sent to: [facility]- [address] [place] [phone] documented in this encounter Plan of Treatment Upcoming Encounters Date Type Department Care Team (Late st Contact Info) Description 09/28/2024 10:00 AM EDT Clinical Support [facility] MED & PEDS 505 [place] [address] Roz Christopher RN 505 [place] [address] documented as of this encounter Visit Diagnoses Not on filedocumented in this encounter Additional Health Concerns Assessment Noted Time PHQ-9 Depression Total Score: 0 05/17/20 2:24 PM EST documented as of this encounter Care Teams Derrick Boat Lever Operator Relationship Specialty Start Date End Date Ej Ceron MD 505 [place] [address] PCP - General Internal Medicine 06/08/24 documented as of this encounter
--- OUTSIDE RECORDS SUMMARY | 2024-09-26 08:22 | XMS_ITS | Clinical Summary ---
Author Organization [employer] Address [address] [facility] 7t [place] [address] Care Team Providers Care Valve Inspector Name Role Phone Ej Ceron MD Primary [...] 2009 All: morphine/bactrim Meds: as above A0 [id number] Had colonoscopy 7-8 years ago, will review gi consult Encounter for screening mamm ogram for malignant neoplasm of breast 07/08/2024 Assessment & Plan (07/08/2024 3:22 PM EST): Will order a breast mammogram Menopause 07/08/2024 Assessment & Plan (07/08/2024 3:23 PM EST): Will order a bone density scan Encounters Date Type Department Care Team Description 09/22/2024 Orders Only [facility] MED & PEDS [address] [place] [address] Ej Ceron MD Chronic left shoulder pain (Primary Dx) 09/19/2024 Orders Only [facility] MED & PEDS [address] [place] [address] Ej Ceron MD 09/14/2024 Travel 09/08/2024 Orders Only [facility] External Provider, [facility] 09/08/2024 Telephone [facility] MED & PEDS [address] [place] [address] Roz Christopher, RN public welfare worker 09/08/[address] [address] Ej Ceron MD Medication Question 09/08/[address] [address] Ej Ceron MD Med Refill 09/08/[address] [address] Ej Ceron MD Med Refill 09/06/2024 Refill [facility] MED & PEDS [address] [place] [address] Ej Ceron MD 09/05/2024 Orders Only [facility] MED & PEDS [address] [place] [address] Ej Ceron MD Acquired hypothyroidism (Primary Dx) 09/05/2024 Orders Only [facility] MED & PEDS [address] [place] [address] Ej Ceron MD 08/10/2024 Refill [facility] CHC MED & PEDS [address] [place] [address] Ej Ceron MD 08/10/2024 Refill [facility] CHC MED & PEDS [address] [place] [address] Ej Ceron MD Chronic midline low back pain without sciatica 08/04/2024 Orders Only [facility] [address] [place] [address] ProviderCharlotte MD 08/02/2024 3:30 PM EST Office Visit [facility] MED & PEDS [address] [place] [address] Ej Ceron MD Acquired hypothyroidism (Primary Dx); Dietary counseling; Exercise counseling; Gastroesophageal reflux disease without esophagitis; Age-related osteoporosis without current pathological fracture; Mixed hyperlipidemia; Major depressive disorder in full remission, unspecified whether recurrent (CMS/[facility]); Chronic left shoulder pain; Pharyngeal dysphagia 08/02/2024 Travel 07/14/2024 Refill [facility] MEDICINE [address] [place], [place] [phone] Ej Ceron MD Chronic midline low back [...] Upcoming Encounters Date Type Department Care Team ([facility] st Contact Info) Description 09/28/2024 10:00 AM EDT Clinical Support [facility] MED & PEDS [address] [place] [address] Roz Christopher, RN 505 [place] [address] Health Maintenance Due Date Last Done Comments [...] EDT Narrative 09/09/2024 8:28 AM EDT ? [facility] ?[address] ?[place] [address] ? Ultrasound Report ? Signed ? Patient: Bin,Tejal ?MR#: [id number] ?? 0 ? : 1955 ?Acct:[id number] ? Age/Sex: 69 / F ?ADM Date: 09/08/24 ? Loc: HO.US ? Attending Dr: Dinorah CHANCE ? Ordering Physician: Dinorah Clemons ?? Date of Service: 09/08/24 ?? Procedure(s): US renal BI ?? Accession Number(s): [id number] ? cc: Ej Ceron MD; Dinorah Clemons [...] ? DD/ 6 ? TD/TT: 09/09/24826 ? Cigar Tobacco Rehandler: ? Procedure Note Laisha Li - 09/09/[address] [address] Ultrasound Report Signed Patient: Tejal StewardMR#: [id number] 0 : 7Acct:[id number] Age/Sex: 69 / FADM Date: 09/08/24 Loc: HO.US Attending Dr: Dinorah CHANCE Ordering Physician: Dinorah Clemons Date of Service: 09/08/24 Procedure(s): US renal BI Accession Number(s): [id number] cc: Ej Ceron MD; Dinorah Clemons [facility] CLINICAL HISTORY: N20.0 - Calculus of kidney [...] in OV> 09/09/24827 DD/ 6 TD/TT: 09/09/24826 Cigar Tobacco Rehandler: [facility] External Provider IMG US PROCEDURES Final Result * (ABNORMAL) TSH W/Reflex to FT4 (09/05/2024 11:01 AM EDT) TSH reflex Free T4 13.05(H) 0.32 - 4.0 uIU/mL [facility] Blood Venous blood specimen / Unknown 09/05/2024 11:01 AM EDT 09/05/2024 2:19 PM EDT Ej Shen MD LAB BLOOD ORDERABL ES Final Result [facility] [address] [place] [phone] * CBC auto differential (09/05/2024 11:01 AM EDT) White Blood Count 6.5 4.8 - 10.8 X10*3/uL [facility] Red Blood Count 4.72 4.20 - 5.50 X10*6/uL [facility] Hemoglobin 13.8 12.0 - 16.0 g/dl [facility] Hematocrit 42.6 37.0 - 47.0 % [facility] Mean Corpuscular Volume 90.3 80.0 - 98.0 fL [facility] Mean Corpuscular Hemoglobin 29.2 27.0 - 33.0 pg [facility] Mean Corpuscular HGB Conc 32.4 31.0 - 35.0 g/dl [facility] Red Cell Distribution Width 13.2 11.0 - 16.0 % [facility] Platelet Count 381 160 - 400 X10*3/uL [facility] Mean Platelet Volume 10.7 9.4 - 12.3 fL [facility] Neutrophils Percent Auto 55.8 45 - 73 % [facility] Imm Gran Pct Auto 0.2 0.0 - 0.4 % [facility] Lymphocytes Percent Auto 32.7 20 - 40 % [facility] Monocytes Percent Auto 6.8 2 - 11 % [facility] Eosinophils Percent Auto 3.4 0 - 4 % [facility] Basophils Percent Auto 1.1 0 - 2 % [facility] NRBC Pct Auto 0.0 0.0 - 0.2 /100WBC [facility] Neutrophils Absolute Auto 3.6 2.0 - 8.3 x10*3/uL [facility] Imm Gran Abs Auto 0.01 0.00 - 0.03 X10*3/uL [facility] Lymphocytes Absolute Auto 2.1 1.2 - 4.9 X10*3/uL [facility] Monocytes Absolute Auto 0.4 0.1 - 1.2 X10*3/uL [facility] Eosinophils Absolute Auto 0.2 0.0 - 0.4 X10*3/uL [facility] Basophils Absolute Auto 0.1 0.0 - 0.2 X10*3/uL [facility] NRBC Abs Auto 0.000 0.0 - 0.012 X10*3/uL [facility] Blood Venous blood specimen / Unknown 09/05/2024 11:01 AM EDT 09/05/2024 2:19 PM EDT us Ej Shen MD LAB BLOOD ORDERABL ES Final Result [facility] [address] [place] [phone] * Hepatitis C Antibody with Reflex to HCV, RNA, Quantitative, Real-Time PCR (09/05/2024 11:01 AM EDT) Hepatitis C Antibody Nonreactive Nonreactive [facility] Comment:Antibodies to HCV no t detected; does not exclude early acuteHCV infection. Blood Venous blood specimen / Unknown 09/05/2024 11:01 AM EDT 09/05/2024 2:19 PM EDT Ej Shen MD LAB BLOOD ORDERABL ES Final Result Performing Organization Address [facility] Co de Phone Number [facility] [address] [place] [phone] * T4, Free (09/05/2024 11:01 AM EDT) Free T4 (Free Thyroxine) 1.13 0.71 - 1.85 ng/dL [facility] 09/05/2024 11:0 1 AM EDT 09/05/2024 2:19 PM EDT Ej Shen MD LAB BLOOD ORDERABL ES Final Result Performing Organization Address [facility] Co de Phone Number [facility] [address] [place] [phone] * Hemoglobin A1c (09/05/2024 11:01 AM EDT) Hemoglobin A1c 5.4 <6.0 % [facility] Comment:Hemoglobin A1C Refer ence Range Adults: 4.8 - 6.0 % Non diabetic: < 6.0 % Goal: < 7.0 %Additional Action Suggested: > 8.0 %Note: Hemoglobin A1c results are invalid for patients with abnormal amounts of HbF. Blood transfusions may impact the HbA1c concentration in the patient sample. Estimated Average Glucose 108 mg/dL [facility] Comment:eAG = Estimated ave rage glucose which is %A1C expressed asaverage glucose, using the formula of the I3D-HhcqarpEgjbhfz Glucose study (ADAG), Diabetes Care, Vol.31,#8,Jan. 2007 Blood Venous blood specimen / Unknown 09/05/2024 11:01 AM EDT 09/05/2024 2:19 PM EDT Ej Shen MD LAB BLOOD ORDERABL ES Final Result Performing Organization Address [facility] Co de Phone Number [facility] [address] [place] [phone] * Lipid Panel, Standard (09/05/2024 11:01 AM EDT) Triglycerides 107 <150 mg/dL [facility] Comment:Desirable Triglyceri de: less than 150 mg/dLBorderline High Triglyceride 150-199 mg/dLHigh Triglyceride: 200-499 mg/dLVery High Triglyceride: greater than or equal to 5OO mg/dL Cholesterol 163 <200 mg/dL [facility] Comment:Desirable Cholestero l: less than 200 mg/dLBorderline High Cholesterol: 200-239 mg/dLHigh Cholesterol: greater than 239 mg/dL LDL Cholesterol Calculated 96 <100 mg/dL [facility] Comment:Desirable LDL: less than 100 mg/dLNear Optimal/Above Optimal LDL: 110- 129 mg/dLBorderline High LDL: 130-159 mg/dLHigh LDL: 160-189 mg/dLVery High LDL: greater than or equal to 190 mg/dL HDL Cholesterol 46 >40 mg/dL [facility] Comment:Desirable HDL: great er than 40 mg/dL Note: This HDL assay may give artificially low results in patients with liver disease. Blood Venous blood specimen / Unknown 09/05/2024 11:01 AM EDT 09/05/2024 2:19 PM EDT Ej Shen MD LAB BLOOD ORDERABL ES Final Result Performing Organization Address [facility] Co de Phone Number [facility] [address] [place] [phone] [phone] * (ABNORMAL) Comprehensive Metabolic Panel (09/05/2024 11:01 AM EDT) Sodium 139 135 - 145 mmol/L [facility] Potassium 4.7 3.3 - 5.1 mmol/L [facility] Chloride 108 96 - 108 mmol/L [facility] Carbon Dioxide 25 22 - 29 mmol/L [facility] Anion Gap 11(L) 12 - 20 [facility] Urea Nitrogen (BUN) 14 9 - 16 mg/dL [facility] Creatinine, Serum 0.92 0.5 - 1.4 mg/dL [facility] Estimated Glomerular Filt Rate >60 [facility] Comment:Chronic Kidney Disea se: Estimated GFR < 60 mL/min/1.63p3Nzyypf Kidney Disease: Estimated GFR < 15 mL/min/1.73m2 Glucose 79 60 - 115 mg/dL [facility] Calcium 9.2 8.4 - 10.2 mg/dL [facility] Bilirubin, Total 0.4 0.0 - 1.0 mg/dL [facility] Aspartate Amino Transferase 21 5 - 31 U/L [facility] Alanine Aminotransferase 15 0 - 31 U/L [facility] Total Protein 6.9 6.5 - 8.0 g/dL [facility] Albumin Level 4.0 3.5 - 5.0 g/dL [facility] Alkaline Phosphatase 97 39 - 117 U/L [facility] Blood Venous blood specimen / Unknown 09/05/2024 11:01 AM EDT 09/05/2024 2:19 PM EDT us Ej Shen MD LAB BLOOD ORDERABL ES Final Result [facility] [address] [place] [phone] [phone] * XR Shoulder 2+ Views Left (08/12/2024) Anatomical Region Laterality Modality Upper Extremities, Shoulder Left Radi ographic Imaging Ej Shen MD IMG XR PROCEDURES Final Result * MM DIGITAL MAMMO BILATERAL (08/02/2024 1:09 PM EST) Anatomical Region Laterality Modality Mammography Historical Provider MD VALENZUELA BI PROCEDURES Final R esult from Last 3 Months Insurance [facility] MEDICARE REPLACEMENT Care Teams Valve Inspector Relationship Specialty Start Date End Date Ej Ceron MD [address] [place] [phone] PCP - General Internal Medicine 06/08/24
--- OUTSIDE RECORDS SUMMARY | 2024-09-26 08:22 | XMS_ITS | Encounter Summary ---
Author Organization [employer] Address [address] [facility] 7t [place] [address] Care Team Providers Care Foreign Student Adviser Teacher Name Role Phone Ej Ceron MD Primary Care Prov ider Reason for Visit * Reason Onset Date Comments legal consultant 09/08/2024 Encounter Details Date Type Department Care Team ([facility] st Contact Info) Description 09/08/2024 Telephone [facility]S [address] [place] [address] Roz Christopher RN [address] [place] [address] legal consultant Social History Tobacco Use Types Packs/Day Years [...] AM EDT Tc back to pt. Initial [employer] nv r/s to 09/28/24 @ 10am. * Telephone Encounter - Homa Anders - 09/13/2024 3:51 PM EDT Patient called in, was transferred to [facility]. Patient said she received call and would like to schedule [employer] appointment. Patient was advised message would be sent to RN. * Telephone Encounter - Roz Christopher RN - 09/08/2024 3:21 PM EDT Pt needs an initial [employer] appt. TC to pt again to schedule it, no answer. Lvm for pt to c/b,. Queuingweek supply. documented in this encounter Plan of Treatment Upcoming Encounters Date Type Department Care Team ([facility] st Contact Info) Description 09/28/2024 10:00 AM EDT Clinical Support [facility] MED & PEDS [address] [place] [address] Roz Christopher RN [address] [place] [address] documented as of this encounter Visit Diagnoses Diagnosis Chronic midline low back pain without sciatica documented in this encounter Additional Health Concerns Assessment Noted Time PHQ-9 Depression Total Score: 0 05/17/20 24 2:24 PM EST documented as of this encounter Care Teams Foreign Student Adviser Teacher Relationship Specialty Start Date End Date Ej Ceron MD [address] [place] [address] PCP - General Internal Medicine 06/08/24 documented as of this encounter
== END 2024-09-23 08:08 | disposition home or self-care (01) ==
LOC: HO.HOSX 08:07
PROVIDERS: Visit Provider Physician Assistant
DX: M75.102 Unspecified rotator cuff tear or rupture of left shoulder, not specified as traumatic (principal); M25.512 Pain in left shoulder
CPT/HCPCS: 20610; 73030; 99202; J1010; J2003

== ENCOUNTER 2024-09-23 10:47 | Outpatient (AMB) | payer MEDICARE, SELFPAY ==
--- NOTE | 2024-09-23 10:58 | MHC.OFFVIS ---
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 Hx of surgery on the right shoulder at [facility] . She states that her pain has been getting worse and she notices some popping sensation. Patient notices her pain is worse when she is doing overhead reaching, reaching her back, laying on her side getting up from a sitting position. She states that she has tried Tramadol with relief. Allergies Sulfa (Sulfonamide Antibiotics) Allergy (Unknown, Verified 09/23/24 11:02) Unknown HPI HPI TECHNICAL SERVICES SPECIALIST- Left shoulder pain: Details: The patient is a 69-year-old [id number] female presenting with atraumatic left shoulder pain. There is a notable pattern of pain exacerbation upon exertional activities, such as pushing off from the couch, accompanied by popping in the joint and subsequent, prolonged soreness. This pain cycle is recurrent. She has not had any cortisone injections or physical therapy. 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 Pain with cross-body reach. 4-5 strength with empty can. NVI. Office Procedures AMB Joint Injection/Aspiration Joint Injection/Aspiration Primary Site: left shoulder Prep: site was prepped using aseptic technique, ethochloride spray was applied and injection warnings given Injected: 80 mg of, DepoMedrol, with 8 mL of (2% plain lido) and in the subcromial space Approach Used: posterolateral Procedure: The patient tolerated the procedure well, but had some pain with the injection and there was some relief with the local anesthesia Coding 39356 - Large joint Procedure code (CPT) selection complete Assessment & Plan Assessment & Plan (1) Painful arc syndrome of left shoulder: Code(s): M75.102 - Unspecified rotator cuff tear or rupture of left shoulder, not specified as traumatic Category: Medical Plan The patient was offered a cortisone injection in the left shoulder with 80 mg of DepoMedrol. The patient was explained the risks, benefits, and alternatives to receiving this injection. After receiving consent for the injection, the patient had the procedure done while in the office today. The patient tolerated the procedure well with no complications. Follow-up will be p.r.n., or sooner if needed X-rays of the left shoulder which were obtained while in the office today and were reviewed by me, Rosy Serrano PA-C, revealed no acute fracture dislocation. Orders: Orders XR shoulder LT min 2V Today M25.519 - Pain in unspecified shoulder Coding Level of Care Code New Pt Level 3 (04303) Diagnoses Painful arc syndrome of left shoulder M75.102 CPT Codes Coding - Large joint: 81772 - Large joint ([id number])
[2024-09-23 11:03] VITALS: BMI 28.2
--- OUTSIDE RECORDS SUMMARY | 2024-09-23 12:29 | XMS_ITS | Encounter Summary ---
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 Initial LEATHER STRIPPING MACHINE OPERATOR nv r/s to 09/28/24 @ 10am. * Telephone Encounter - Homa Anders - 09/13/2024 3:51 PM EDT Patient called in, was transferred to [facility]. Patient said she received call and would like to schedule LEATHER STRIPPING MACHINE OPERATOR appointment. Patient was advised message would be sent to RN. * Telephone Encounter - oRz Christopher RN - 09/08/2024 3:21 PM EDT Pt needs an initial LEATHER STRIPPING MACHINE OPERATOR appt. TC to pt again to schedule it, no answer. Lvm for pt to c/b,. Queuingweek supply. documented in this encounter Plan of Treatment Upcoming Encounters Date Type Department Care Team ([facility] st Contact Info) Description 09/28/2024 10:00 AM EDT Clinical Support [facility] [address] [place] [address] Roz Christopher RN [address] [place] [address] documented as of this encounter Visit Diagnoses Diagnosis Chronic midline low back pain without sciatica documented in this encounter Additional Health Concerns Assessment Noted Time PHQ-9 Depression Total Score: 0 05/17/20 24 2:24 PM EST documented as of this encounter Care Teams Railway Track Worker Relationship Specialty Start Date End Date Ej Ceron MD [address] [place] [address] PCP - General Internal Medicine 06/08/24 documented as of this encounter
--- OUTSIDE RECORDS SUMMARY | 2024-09-23 12:29 | XMS_ITS | Clinical Summary ---
Author Organization [employer] Address 75 [facility] 7t [place] [address] Care Team Providers Care Senior Software Qa Engineer Name Role Phone Ej Ceron MD [...] mg by mouth Once per day. Active aspirin 81 MG EC tablet Take 81 mg by mouth Once per day. Active alendronate (Fosamax) 70 MG tablet Take 70 mg by mouth every 7 (seven) days. Take in the morning with a full glass of water, on an empty stomach, and do not take anything else by mouth or lie down for the next 30 min. Active levothyroxine (Synthroid, Levoxyl) 88 MCG tablet TAKE 1 TABLET(88 MCG) BY MOUTH BEFORE BREAKFAST 90 tablet 3 09/07/19 25 Active gabapentin (Neurontin) 100 MG capsule Take 2 capsules (200 mg) by mouth 3 times daily. 540 capsule 09/20/19 25 025 Active traMADol (Ultram) 50 MG tabletIndicati ons:Chronic left shoulder pain Take 1 tablet (50 mg) by mouth every 12 (twelve) hours if needed for severe pain for up to 14 days. 28 tablet 09/23/19 25 025 Active levothyroxine (Synthroid, Levoxyl) 75 MCG tablet Take 75 mcg by mouth before breakfast. 025 Discontinued(Re order (will not trigger notification to Pharmacy)) traMADol (Ultram) 50 MG tablet Take 50 mg by mouth every 12 (twelve) hours if needed for severe pain. 025 Discontinued(Re order (will not trigger notification to Pharmacy)) traMADol (Ultram) 50 MG tabletIndicati ons:Chronic midline low back pain without sciatica Take 1 tablet (50 mg) by mouth every 12 (twelve) hours if needed for severe pain for up to 28 days. Do not start before August 11, 2024. 56 tablet 08/11/19 025 gabapentin (Neurontin) 100 MG capsule Take 2 capsules (200 mg) by mouth 3 times daily. 56 capsule 08/10/19 025 Discontinued(Re order (will not trigger notification to Pharmacy)) levothyroxine (Synthroid, Levoxyl) 88 MCG tablet Take 1 tablet (88 mcg) by mouth before breakfast. 30 tablet 1 09/06/19 025 Discontinued Active Problems Problem Noted Date [...] resection 2002 due to diverticulitis, right shoulder 2009 All: morphine/bactrim Meds: as above A0 [id number] Had colonoscopy 7-8 years ago, will review gi consult Encounter for screening mamm ogram for malignant neoplasm of breast 07/08/2024 Assessment & Plan (07/08/2024 3:22 PM EST): Will order a breast mammogram Menopause 07/08/2024 Assessment & Plan (07/08/2024 3:23 PM EST): Will order a bone density scan Encounters Date Type Department Care Team Description 09/22/2024 Orders Only [facility] PED[facility] [address] [place] [address] Ej Ceron MD Chronic left shoulder pain (Primary Dx) 09/19/2024 Orders Only [facility] [address] [place] [address] Ej Ceron MD 09/14/2024 Travel 09/08/2024 Orders Only [facility] External Provider, [facility] 09/08/2024 Telephone [facility] [address] [place] [address] Roz Christopher, RN employee benefits administrator 09/08/[address] [address] Ej Ceron MD Medication Question 09/08/[address] [address] jE Ceron MD Med Refill 09/08/[address] [address] Ej Ceron MD Med Refill 09/06/2024 Refill [facility] [address] [place] [address] Ej Ceron MD 09/05/2024 Orders Only [facility] [address] [place] [address] Ej Ceron MD Acquired hypothyroidism (Primary Dx) 09/05/2024 Orders Only [facility] [address] [place] [address] Ej Ceron MD 08/10/2024 Refill [facility]S [address] [place] [address] Ej Ceron MD 08/10/2024 Refill [facility] P[facility]S [address] [place] [address] Ej Ceron MD Chronic midline low back pain without sciatica 08/04/2024 Orders Only [facility] [address] [place] [address] ProviderCharlotte MD 08/02/2024 3:30 PM EST Office Visit [facility] [address] [place] [address] Ej Ceron MD Acquired hypothyroidism (Primary Dx); Dietary counseling; Exercise counseling; Gastroesophageal reflux disease without esophagitis; Age-related osteoporosis without current pathological fracture; Mixed hyperlipidemia; Major depressive disorder in full remission, unspecified whether recurrent (CMS/[facility]); Chronic left shoulder pain; Pharyngeal dysphagia 08/02/2024 Travel 07/14/2024 Refill [facility] MEDICINE [address] [place], [place] [phone] Ej Ceron MD Chronic midline low back [...] 08/02/2024 3:29 PM EST Plan of Treatment Upcoming Encounters Date Type Department Care Team ([facility] st Contact Info) Description 09/28/2024 10:00 AM EDT Clinical Support [facility] [address] [place] [address] Roz Christopher, RN [address] [place] [address] Health Maintenance Due Date Last Done Comments [...] Procedure Name Priority Date/Time Associated Diagnosis Comments US RENAL BI Routine 09/09/2024 8:27 AM EDT T4, FREE Routine 09/05/2024 11:01 AM EDT [...] EST from Last 3 Months Results * US RENAL BI (09/09/2024 8:27 AM EDT) Anatomical Region Laterality Modality Abdomen Ultrasound 09/09/2024 8:27 AM EDT Narrative 09/09/2024 8:28 AM EDT ? [facility] ?[address] ?[place] [address] ? Ultrasound Report ? Signed ? Patient: Bin,Tejal ?MR#: [id number] ?? 0 ? : 1955 ?Acct:[id number] ? Age/Sex: 69 / F ?ADM Date: 09/08/24 ? Loc: HO.US ? Attending Dr: Dinorah CHANCE ? Ordering Physician: Dinorah Clemons ?? Date of Service: 09/08/24 ?? Procedure(s): US renal BI ?? Accession Number(s): [id number] ? cc: Ej Ceron MD; Dinorah Clemons ? CLINICAL HISTORY: N20.0 - Calculus of kidney ? US Renal ? Comparison: None ? Findings: ?? Right kidney normal size and echotexture, 9.6 cm length. ?? Left kidney normal size and echotexture, 10.0 cm length. ? No collecting system dilatation of either kidney. Normal color Doppler. ? IMPRESSION: ?? 1. Normal kidneys. ? This document has been electronically signed by: Kahlil Ramirez MD on ?? 09/09/2024 08:27:18 ? Dictated By: ?Kahlil Ramirez MD ? Signed By: ?<Electronically signed by Kahlil Ramirez MD in OV> ?09/09/24827 ? DD/ 6 ? TD/TT: 09/09/24826 ? Cadastral Surveyor: ? Procedure Note Laisha Li - 09/09/[address] [address] Ultrasound Report Signed Patient: Tejal StewardMR#: [id number] 0 : 7Acct:[id number] Age/Sex: 69 / FADM Date: 09/08/24 Loc: HO.US Attending Dr: Dinorah CHANCE Ordering Physician: Dinorah Clemons Date of Service: 09/08/24 Procedure(s): US renal BI Accession Number(s): [id number] cc: Ej Ceron MD; Dinorah Clemons [facility] CLINICAL HISTORY: N20.0 - Calculus of kidney US Renal Comparison: None Findings: Right kidney normal size and echotexture, 9.6 cm length. Left kidney normal size and echotexture, 10.0 cm length. No collecting system dilatation of either kidney. Normal color Doppler. IMPRESSION: 1. Normal kidneys. This document has been electronically signed by: Kahlil Ramirez MD on 09/09/2024 08:27:18 Dictated By: Kahlil Ramirez MD Signed By: <Electronically signed by Kahlil Ramirez MD in OV> 09/09/24827 DD/ 6 TD/TT: 09/09/24826 Cadastral Surveyor: [facility] External Provider IMG US PROCEDURES Final Result * (ABNORMAL) TSH W/Reflex to FT4 (09/05/2024 11:01 AM EDT) TSH reflex Free T4 13.05(H) 0.32 - 4.0 uIU/mL [facility] Blood Venous blood specimen / Unknown 09/05/2024 11:01 AM EDT 09/05/2024 2:19 PM EDT Ej Shen MD LAB BLOOD ORDERABL ES Final Result [facility] [address] [place] [phone] * CBC auto differential (09/05/2024 11:01 AM EDT) White Blood Count 6.5 4.8 - 10.8 X10*3/uL [facility] Red Blood Count 4.72 4.20 - 5.50 X10*6/uL [facility] Hemoglobin 13.8 12.0 - 16.0 g/dl [facility] Hematocrit 42.6 37.0 - 47.0 % [facility] Mean Corpuscular Volume 90.3 80.0 - 98.0 fL [facility] Mean Corpuscular Hemoglobin 29.2 27.0 - 33.0 pg [facility] Mean Corpuscular HGB Conc 32.4 31.0 - 35.0 g/dl [facility] Red Cell Distribution Width 13.2 11.0 - 16.0 % [facility] Platelet Count 381 160 - 400 X10*3/uL [facility] Mean Platelet Volume 10.7 9.4 - 12.3 fL [facility] Neutrophils Percent Auto 55.8 45 - 73 % [facility] Imm Gran Pct Auto 0.2 0.0 - 0.4 % [facility] Lymphocytes Percent Auto 32.7 20 - 40 % [facility] Monocytes Percent Auto 6.8 2 - 11 % [facility] Eosinophils Percent Auto 3.4 0 - 4 % [facility] Basophils Percent Auto 1.1 0 - 2 % [facility] NRBC Pct Auto 0.0 0.0 - 0.2 /100WBC [facility] Neutrophils Absolute Auto 3.6 2.0 - 8.3 x10*3/uL [facility] Imm Gran Abs Auto 0.01 0.00 - 0.03 X10*3/uL [facility] Lymphocytes Absolute Auto 2.1 1.2 - 4.9 X10*3/uL [facility] Monocytes Absolute Auto 0.4 0.1 - 1.2 X10*3/uL [facility] Eosinophils Absolute Auto 0.2 0.0 - 0.4 X10*3/uL [facility] Basophils Absolute Auto 0.1 0.0 - 0.2 X10*3/uL [facility] NRBC Abs Auto 0.000 0.0 - 0.012 X10*3/uL [facility] Blood Venous blood specimen / Unknown 09/05/2024 11:01 AM EDT 09/05/2024 2:19 PM EDT us Ej Shen MD LAB BLOOD ORDERABL ES Final Result [facility] [address] [place] [phone] * Hepatitis C Antibody with Reflex to HCV, RNA, Quantitative, Real-Time PCR (09/05/2024 11:01 AM EDT) Hepatitis C Antibody Nonreactive Nonreactive [facility] Comment:Antibodies to HCV no t detected; does not exclude early acuteHCV infection. Blood Venous blood specimen / Unknown 09/05/2024 11:01 AM EDT 09/05/2024 2:19 PM EDT Ej Shen MD LAB BLOOD ORDERABL ES Final Result Performing Organization Address [facility] Co de Phone Number [facility] [address] [place] [phone] * T4, Free (09/05/2024 11:01 AM EDT) Free T4 (Free Thyroxine) 1.13 0.71 - 1.85 ng/dL [facility] 09/05/2024 11:0 1 AM EDT 09/05/2024 2:19 PM EDT Ej Shen MD LAB BLOOD ORDERABL ES Final Result Performing Organization Address [facility] Co de Phone Number [facility] [address] [place] [phone] * Hemoglobin A1c (09/05/2024 11:01 AM EDT) Hemoglobin A1c 5.4 <6.0 % [facility] Comment:Hemoglobin A1C Refer ence Range Adults: 4.8 - 6.0 % Non diabetic: < 6.0 % Goal: < 7.0 %Additional Action Suggested: > 8.0 %Note: Hemoglobin A1c results are invalid for patients with abnormal amounts of HbF. Blood transfusions may impact the HbA1c concentration in the patient sample. Estimated Average Glucose 108 mg/dL [facility] Comment:eAG = Estimated ave rage glucose which is %A1C expressed asaverage glucose, using the formula of the X9U-NibdjxyQfgkuvb Glucose study (ADAG), Diabetes Care, Vol.31,#8,Jan. 2007 Blood Venous blood specimen / Unknown 09/05/2024 11:01 AM EDT 09/05/2024 2:19 PM EDT Ej Shen MD LAB BLOOD ORDERABL ES Final Result Performing Organization Address [facility] Co de Phone Number [facility] [address] [place] [phone] * Lipid Panel, Standard (09/05/2024 11:01 AM EDT) Triglycerides 107 <150 mg/dL [facility] Comment:Desirable Triglyceri de: less than 150 mg/dLBorderline High Triglyceride 150-199 mg/dLHigh Triglyceride: 200-499 mg/dLVery High Triglyceride: greater than or equal to 5OO mg/dL Cholesterol 163 <200 mg/dL [facility] Comment:Desirable Cholestero l: less than 200 mg/dLBorderline High Cholesterol: 200-239 mg/dLHigh Cholesterol: greater than 239 mg/dL LDL Cholesterol Calculated 96 <100 mg/dL [facility] Comment:Desirable LDL: less than 100 mg/dLNear Optimal/Above Optimal LDL: 110- 129 mg/dLBorderline High LDL: 130-159 mg/dLHigh LDL: 160-189 mg/dLVery High LDL: greater than or equal to 190 mg/dL HDL Cholesterol 46 >40 mg/dL [facility] Comment:Desirable HDL: great er than 40 mg/dL Note: This HDL assay may give artificially low results in patients with liver disease. Blood Venous blood specimen / Unknown 09/05/2024 11:01 AM EDT 09/05/2024 2:19 PM EDT Ej Shen MD LAB BLOOD ORDERABL ES Final Result Performing Organization Address City/[facility] Co de Phone Number [facility] [address] [place] [phone] * (ABNORMAL) Comprehensive Metabolic Panel (09/05/2024 11:01 AM EDT) Sodium 139 135 - 145 mmol/L [facility] Potassium 4.7 3.3 - 5.1 mmol/L [facility] Chloride 108 96 - 108 mmol/L [facility] Carbon Dioxide 25 22 - 29 mmol/L [facility] Anion Gap 11(L) 12 - 20 [facility] Urea Nitrogen (BUN) 14 9 - 16 mg/dL [facility] Creatinine, Serum 0.92 0.5 - 1.4 mg/dL [facility] Estimated Glomerular Filt Rate >60 [facility] Comment:Chronic Kidney Disea se: Estimated GFR < 60 mL/min/1.13g0Yjgwko Kidney Disease: Estimated GFR < 15 mL/min/1.73m2 Glucose 79 60 - 115 mg/dL [facility] Calcium 9.2 8.4 - 10.2 mg/dL [facility] Bilirubin, Total 0.4 0.0 - 1.0 mg/dL [facility] Aspartate Amino Transferase 21 5 - 31 U/L [facility] Alanine Aminotransferase 15 0 - 31 U/L [facility] Total Protein 6.9 6.5 - 8.0 g/dL [facility] Albumin Level 4.0 3.5 - 5.0 g/dL [facility] Alkaline Phosphatase 97 39 - 117 U/L [facility] Blood Venous blood specimen / Unknown 09/05/2024 11:01 AM EDT 09/05/2024 2:19 PM EDT us Ej Shen MD LAB BLOOD ORDERABL ES Final Result [facility] [address] [place] [phone] * XR Shoulder 2+ Views Left (08/12/2024) Anatomical Region Laterality Modality Upper Extremities, Shoulder Left Radi ographic Imaging Ej Shen MD IMG XR PROCEDURES Final Result * MM DIGITAL MAMMO BILATERAL (08/02/2024 1:09 PM EST) Anatomical Region Laterality Modality Mammography Historical Provider MD VALENZUELA BI PROCEDURES Final R esult from Last 3 Months Insurance [facility] [place] [address] Care Teams Senior Software Qa Engineer Relationship Specialty Start Date End Date Ej Ceron MD [address] [place] [phone] PCP - General Internal Medicine 06/08/24
--- OUTSIDE RECORDS SUMMARY | 2024-09-23 12:29 | XMS_ITS | Encounter Summary ---
Author Organization [employer] Address [address] [facility] [address]t [place] [address] Care Team Providers Care Regulatory Specialist Name Role Phone Ej Ceron MD Primary Care Prov ider Reason for Visit * Reason Onset Date Comments Medication Question 09/08/2024 Encounter Details Date Type Department Care Team (Late st Contact Info) Description 09/08/2024 Telephone [facility] MEDICINE 230 [place] [address] Ej Ceron MD 505 [place], [place] [phone] Medication Question Social History Tobacco Use Types Packs/Day Years [...] encounter Miscellaneous Notes * Telephone Encounter - Madison Thomas RN - 09/21/2024 9:06 AM EDT TC to pt. RN told pt that MD sent in 90 day supply of her gabapentin. Pt verbalized understanding and agreement with the plan of care. * Telephone Encounter - Prachi Crenshaw - 09/08/2024 2:45 PM EDT Tc from pt requesting if pcp can send supplies for one or three months. Pt states she takes 6 pillsa day and must request a refill every 9 days. Medication: gabapentin (Neurontin) 100 MG capsule documented in this encounter Plan of Treatment Upcoming Encounters Date Type Department Care Team (Late st Contact Info) Description 09/28/2024 10:00 AM EDT Clinical Support [facility] MED & PEDS 505 [place] [address] Roz Christopher, RN 505 [place] [address] documented as of this encounter Visit Diagnoses Not on filedocumented in this encounter Additional Health Concerns Assessment Noted Time PHQ-9 Depression Total Score: 0 11/26/20 24 2:24 PM EST documented as of this encounter Care Teams Regulatory Specialist Relationship Specialty Start Date End Date Ej Ceron MD [address] [place] [address] PCP - General Internal Medicine 06/08/24 documented as of this encounter
--- OUTSIDE RECORDS SUMMARY | 2024-09-23 12:29 | XMS_ITS | Encounter Summary ---
Author Organization [employer] Address [address] [facility] [address] 7t [place] [address] Care Team Providers Care Cook Italian Style Food Name Role Phone Ej Ceron MD Primary Care Prov ider Reason for Visit * Reason Onset Date Comments Med Refill 09/08/2024 Encounter Details Date Type Department Care Team (Late st Contact Info) Description 09/08/2024 Telephone [facility] MEDICINE 230 [place] [address] Ej Ceron MD 505 [place], [place] [phone] Med Refill Social History Tobacco Use Types [...] encounter Miscellaneous Notes * Telephone Encounter - Prachi Crenshaw - 09/08/2024 2:41 PM EDT TC from pt requesting medication refill. Medications needing refill : traMADol (Ultram) 50 MG tablet To be sent to: [facility]- [address] [place] [phone] documented in this encounter Plan of Treatment Upcoming Encounters Date Type Department Care Team (Late st Contact Info) Description 09/28/2024 10:00 AM EDT Clinical Support [facility] MED & PEDS 505 [place] [address] Roz Christopher RN 505 [place] [address] documented as of this encounter Visit Diagnoses Not on filedocumented in this encounter Additional Health Concerns Assessment Noted Time PHQ-9 Depression Total Score: 0 05/17/20 2:24 PM EST documented as of this encounter Care Teams Cook Italian Style Food Relationship Specialty Start Date End Date Ej Ceron MD 505 [place] [address] PCP - General Internal Medicine 06/08/24 documented as of this encounter
--- OUTSIDE RECORDS SUMMARY | 2024-09-23 12:29 | XMS_ITS | Encounter Summary ---
Author Organization [employer] Address 75 [facility] 7t [place] [address] Care Team Providers Care Storekeeper Helper Name Role Phone Ej Ceron MD Primary Care Prov ider Encounter Details Date Type Department Care Team (Late st Contact Info) Description 08/04/2024 Orders Only [facility] 230 [place] [address] Provider, MD [place] Social History Tobacco Use [...] as of this encounter Plan of Treatment Upcoming Encounters Date Type Department Care Team ([facility] st Contact Info) Description 09/28/2024 10:00 AM EDT Clinical Support [facility]EDS 505 [place] [address] Roz Christopher, MARANDA 505 [place] [address] documented as of this encounter Procedures Procedure [...] documented as of this encounter Care Teams Storekeeper Helper Relationship Specialty Start Date End Date Ej Ceron MD 505 [place] [address] PCP - General Internal Medicine 06/08/24 documented as of this encounter
--- OUTSIDE RECORDS SUMMARY | 2024-09-23 12:29 | XMS_ITS | Encounter Summary ---
Author Organization [employer] Address 75 [facility] 7t [place] [address] Care Team Providers Care Director Of Primary Name Role Phone Ej Ceron MD Primary Care Prov ider Encounter Details Date Type Department Care Team (Late st Contact Info) Description 09/22/2024 Orders Only [facility] MED & PEDS 505 [place], [place] [phone] Ej Ceron MD 505 [place] [address] Chronic left shoulder pain (Primary Dx) Social History Tobacco Use Types [...] Description 09/28/2024 10:00 AM EDT Clinical Support [facility] MED & PEDS 505 [place] [address] Roz Christopher RN 505 [place] [address] documented as of this encounter Visit Diagnoses Diagnosis Chronic left shoulder pain- Primary Pain in joint, shoulder region documented in this encounter Additional Health Concerns Assessment Noted Time PHQ-9 Depression Total Score: 0 05/17/20 24 2:24 PM EST documented as of this encounter Care Teams Director Of Primary Relationship Specialty Start Date End Date Ej Ceron MD 505 [place] [address] PCP - General Internal Medicine 06/08/24 documented as of this encounter
--- OUTSIDE RECORDS SUMMARY | 2024-09-23 12:29 | XMS_ITS | Encounter Summary ---
Author Organization [employer] Address [address] [facility] [address] 7t [place] [address] Care Team Providers Care Community Services Officer Name Role Phone Ej Ceron MD Primary Care Prov ider Reason for Visit * Reason Onset Date Comments Med Refill 09/08/2024 Encounter Details Date Type Department Care Team (Late st Contact Info) Description 09/08/2024 Telephone [facility] MEDICINE 230 [place] [address] Ej Ceron MD 505 [place], [place] [phone] Med Refill Social History Tobacco Use Types [...] Telephone Encounter - Prachi Crenshaw - 09/08/2024 2:43 PM EDT TC from pt requesting medication refill. Medications needing refill : gabapentin (Neurontin) 100 MG capsule To be sent to: [facility]- [address] [place] [phone] documented in this encounter Plan of Treatment Upcoming Encounters Date Type Department Care Team (Late st Contact Info) Description 09/28/2024 10:00 AM EDT Clinical Support [facility] MED & PEDS 505 [place] [address] Roz Christopher RN 505 [place] [address] documented as of this encounter Visit Diagnoses Not on filedocumented in this encounter Additional Health Concerns Assessment Noted Time PHQ-9 Depression Total Score: 0 05/17/20 2:24 PM EST documented as of this encounter Care Teams Community Services Officer Relationship Specialty Start Date End Date Ej Ceron MD 505 [place] [address] PCP - General Internal Medicine 06/08/24 documented as of this encounter
--- OUTSIDE RECORDS SUMMARY | 2024-09-23 12:29 | XMS_ITS | Encounter Summary ---
Author Organization [employer] Address 75 [facility] 7t [place] [address] Care Team Providers Care Channel Opener Outsoles Name Role Phone Ej Ceron MD Primary Care Prov ider Encounter Details Date Type Department Care Team (Late st Contact Info) Description 09/19/2024 Orders Only [facility] MED & PEDS 505 [place], [place] [phone] Ej Ceron MD 505 [place] [address] Social History Tobacco Use Types Packs/Day Years [...] Description 09/28/2024 10:00 AM EDT Clinical Support [facility] MED & PEDS 505 [place] [address] Roz Christopher RN 505 [place] [address] documented as of this encounter Visit Diagnoses Not on filedocumented in this encounter Additional Health Concerns Assessment Noted Time PHQ-9 Depression Total Score: 0 05/17/20 24 2:24 PM EST documented as of this encounter Care Teams Channel Opener Outsoles Relationship Specialty Start Date End Date Ej Ceron MD 505 [place] [address] PCP - General Internal Medicine 06/08/24 documented as of this encounter
--- OUTSIDE RECORDS SUMMARY | 2024-09-23 12:29 | XMS_ITS | Clinical Summary ---
Author Organization [facility] [employer] [facility] Address [address] [place] [address] Care Team Providers Care Hair Assistant Name Role Phone Ej Ceron Primary Care Provide r Encounters Date Type Department Care Team Description 08/12/2024 12:50 PM EST - 08/12/2024 11:59 PM EST Hospital Encounter [facility] Xray [address] [place] [phone] Pain in left shoulder; Other chronic pain Discharge Disposition: Home or Self Care 08/02/2024 10:44 AM EST - 08/02/2024 11:59 PM EST Hospital [facility] [address] [phone] Encounter for screening mammogram for malignant neoplasm [...] Health Maintenance Due Date Last Done Comments Falls Risk Assessment 02/13/2022 Medicare Annual Wellness Visit 02/13/2022 Social Influencers of Health Screening 02/13/2022 Zoster Vaccines (2 of 2) 09/21/2023 07/27/2023, 06/22 COVID-19 Vaccine ( season) 2024 07/27/2023, 07/06/2023, 05/21/2022, Additional history exists Lung Cancer Screening (Low Dose CT) 04/12/2025 04/12/2024, 04/09/2023, 03/27/2022, Additional history exists Depression Screening 05/17/2025 05/17/2024 Hypertension/CHF/CAD Annual BMP Blood Test 09/05/2025 09/05/2024, 06/06/2024 Breast Cancer Screening 08/02/2026 08/02/2024 Colorectal Cancer Screening: Colonoscopy 08/15/2026 Cholesterol Screening (Lipid Panel) 09/05/2029 09/05/2024 Osteoporosis Screening (Bone Density Screening) 06/18/2030 06/18/2020 DTaP,Tdap,and Td Vaccines (3 - Td or Tdap) 12/18/2030 12/18/2020, 02/14/2010 Pneumococcal Vaccine: 50+ Years Completed 07/27/2023, 01/15/2023, 11/30/2017, Additional history exists RSV Immunization Adult Patients Completed 07/27/2023 Influenza Vaccine Completed 04/08/2024, , [...] left lateral third and fourth ribs. Code 34171 -------- FINAL REPORT -------- Dictated By: Kahlil Torres Dictated Date: 08/15/2024 08:04 ET Assigned Physician: Kahlil Torres Reviewed and Electronically Signed By: Kahlil Torres Signed Date: 08/15/2024 08:06 ET Workstation ID: [id number] Transcribed By: Self Edit Transcribed Date: 08/15/2024 [...] left lateral third and fourth ribs. Code 36971 -------- FINAL REPORT -------- Dictated By: Kahlil Torres Dictated Date: 08/15/2024 08:04 ET Assigned Physician: Kahlil Torres Reviewed and Electronically Signed By: Kahlil Torres Signed Date: 08/15/2024 08:06 ET Workstation ID: [id number] Transcribed By: Self Edit Transcribed Date: 08/15/2024 [...] Signed Date: 08/04/2024 09:29 ET Workstation ID: [id number] Transcribed By: Self Edit Transcribed Date: 08/04/2024 09:24 ET Narrative 08/04/2024 9:29 AM EST EXAM: MAMMO DIGITAL SCREENING W PASHA BILAT [...] Signed Date: 08/04/2024 09:29 ET Workstation ID: [id number] Transcribed By: Self Edit Transcribed Date: 08/04/2024 09:24 ET us Ej VALENZUELA BI PROCEDURES Fin al Result * CT LUNG SCREENING LOW DOSE (04/12/2024 4:12 PM EDT) Anatomical Region Laterality Modality Computed Tomogra phy 04/12/2024 3:30 PM EDT Narrative 04/12/2024 4:12 PM EDT [facility] Diagnostic Imaging Department [address] [place] [address] [id number] Patient: ??TEJAL ESTRADA ?/Age/Sex: 1955 - 69 - F Unit#: ??[id number] ? Location/Status: ??SPDICATLS/REG CLI ? Mnemonic/Ordering Site: ??CTLUNGLD/SPCT Ordering Physician: ??ERMELINDA TAMAYO MD CT Lung Screening Low Dose [...] screening CT in 12 months. Dictating Physician: ??REGINALD BENNETT MD Electronically Signed by: ??REGINALD BENNETT MD Dic Date/Time: ??04/12/24 1608 Sign date/Time: ??04/12/24 1612 Procedure Note Reginald Bennett MD - 04/19/2024 [facility] Diagnostic Imaging Department [address] [place] [address] Patient: TEJAL ESTRADA [facility] /Age/Sex: 1955 - 69 - F Unit#: [id number] Location/Status: [facility] Mnemonic/Ordering Site: [facility] Ordering Physician: ERMELINDA TAMAYO MD CT Lung Screening Low Dose [...] low-dose screening CT in 12months. Dictating Physician: REGINALD BENNETT MD Electronically Signed by: REGINALD BENNETT MD Dic Date/Time: 04/12/24 160 Sign date/Time: 04/12/24 1616 Ermelinda Tamayo MD IMG CT PROCEDURES Final Result [...] alternative screening schedule based on trista Suero., [facility] July 10, 2011 for patients with osteopenia [...] alternative screening schedule based on trista Suero., [facility] for patients with osteopenia (based on hip BMD T-score) is as follows: * advanced osteopenia (T scores -2.00 to -2.49), BMD testing every year * moderate osteopenia (T scores -1.50 to -1.99), BMD testing every 5years mild osteopenia or normal BMD (T scores -1.50 and higher), BMD testingevery 15 years John Cerrato MD [facility] DXA PROCEDURES Final Res ult from Last 3 Months or Most Recently Relevant to Health Maintenance Insurance [facility] MEDICARE Care Teams Hair Assistant Relationship Specialty Start Date End Date Ej Ceron [address] [place] [address] PCP - General Internal Medicine 07/19/24
--- OUTSIDE RECORDS SUMMARY | 2024-09-23 12:29 | XMS_ITS | Encounter Summary ---
Author Organization [employer] Address [address] [facility] [address] 7t [place] [address] Care Team Providers Care Manager Hospice Name Role Phone Ej Ceron MD Primary Care Prov ider Reason for Visit * Reason Onset Date Comments Med Refill 06/08/2024 Encounter Details Date Type Department Care Team (Late st Contact Info) Description 06/08/2024 Telephone [facility] MEDICINE 230 [place] [address] Ej Ceron MD 505 [place], [place] [phone] Med Refill Social History Tobacco Use Types [...] encounter Miscellaneous Notes * Telephone Encounter - Duke Kemp - 06/08/2024 12:19 PM EST TC from pt requesting medication refill. Medications needing refill : Tramadol 50 MG 1-2 tablets a Day. To be sent to: [id number] - [place], [place] - [address] [facility] AT SEC OF [facility] & [address] documented in this encounter Plan of Treatment Upcoming Encounters Date Type Department Care Team ([facility] st Contact Info) Description 09/28/2024 10:00 AM EDT Clinical Support [facility] MED & PEDS 505 [place] [address] Roz Christopher RN 505 [place] [address] documented as of this encounter Visit Diagnoses Not on filedocumented in this encounter Additional Health Concerns Assessment Noted Time PHQ-9 Depression Total Score: 0 05/17/20 2:24 PM EST documented as of this encounter Care Teams Manager Hospice Relationship Specialty Start Date End Date Ej Ceron MD 505 [place] [address] PCP - General Internal Medicine 06/08/24 documented as of this encounter
== END 2024-09-23 11:22 | disposition home or self-care (01) ==
LOC: HO.HOS 10:48
PROVIDERS: PCP Internal Medicine; Visit Provider Physician Assistant
DX: M75.102 Unspecified rotator cuff tear or rupture of left shoulder, not specified as traumatic (principal)
CPT/HCPCS: 20610; 99203

== ENCOUNTER → 2024-09-23 10:50 | Outpatient (BNV) | payer MEDICARE, SELFPAY | PROVIDERS: Visit Provider Radiology Diagnostic Radiology | DX: M25.512 Pain in left shoulder (principal) | CPT/HCPCS: 73030 ==

== ENCOUNTER 2024-09-29 07:32 | Outpatient (AMB) | payer MEDICARE, SELFPAY ==
--- NOTE | 2024-09-29 07:32 | A.OFFVIS_ITS ---
Intake Visit Reasons: 1-3 month follow up/ US(set) Intake Note: Patient presents today for tele visit follow up on: kidney stones and ultrasound results Imaging Completed: 09/08/24 Urology Medications: none Blood Thinner: none Logistics Specialist Required: No Accompanied by: Self / Same As Patient Allergies Sulfa (Sulfonamide Antibiotics) Allergy (Unknown, Verified 09/29/24 07:52) Unknown Medication List - Last Reconciled 09/29/24 by ELIAS Uribe alendronate 70 mg PO QWEEK atorvastatin 80 mg PO DAILY bupropion HCl SR 150 mg PO BID cyclobenzaprine 10 mg PO DAILY PRN gabapentin 100 - 200 mg PO TID PRN ibuprofen 400 mg PO Q6H PRN levothyroxine 88 mcg PO DAILY omeprazole 40 mg PO DAILY sertraline 100 mg PO DAILY tramadol mg PO HPI Comments Details: Tejal Turcios is a very pleasant 69-year-old female patient of Dr. Cory Shen. She presents to the office today for a follow-up. Of note, patient was seen approximately 2 months ago as a new patient for nephrolithiasis at which time a renal ultrasound was ordered for further assessment evaluation. These results were communicated and reviewed with the patient today. 09/13 bilateral kidneys with no calculi, lesions, and or hydronephrosis. In discussion with the patient today she reports to be doing and feeling well. She denies having had any bothersome urinary issues or concerns since her last office visit here. She does have a longstanding history of nephrolithiasis in his had prior surgical intervention for nephrolithiasis many years ago. She denies urinary urgency, urinary frequency, incontinence, nocturia, hematuria, dysuria, foul smelling urine, changes to urinary stream, flank pain, fever, and or chills. She is happy with her current voiding parameters. We discussed at length potential causes of nephrolithiasis as well as importance of adequate hydration relation to nephrolithiasis. We discussed metabolic workup with Rolando and labs however patient declines at this time. She otherwise offers no other issues or concerns at this time. 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 Review of Systems Const All systems reviewed & are unremarkable except as noted in HPI and below Physical Exam Const General: cooperative, healthy appearing, comfortable, no acute distress, well developed, alert and awake Orientation/consciousness: patient oriented x3 Resp Effort & Inspection: normal respiratory effort and able to speak in complete sentences Neuro General: patient oriented x3 Psych Appearance: grossly normal and well kempt Mental Status: mental status grossly normal Speech and movement: Clear speech present Affect: normal affect Attitude: cooperative Thought process: Normal thought process present Thought content: Normal thought content present Insight: Fair insight present (Psych) Judgement: Fair judgement present (Psych) Telehealth Telehealth Telehealth Platform: [employer] Location of provider rendering services: practice address Location of patient: address on file Patient Identification confirmed using: Name, : Yes Telehealth method: video Patient verbally consented to treatment: Yes Patient verbally consented to billing insurance company: Yes Patient informed of any privacy concerns related to visit: Yes Minutes spent on Phone/Video with Pt.: 15 Results Reviewed Results Reviewed: Date of Service: 09/08/24 Procedure(s): US renal BI Findings: Right kidney normal size and echotexture, 9.6 cm length. Left kidney normal size and echotexture, 10.0 cm length. No collecting system dilatation of either kidney. Normal color Doppler. IMPRESSION: 1. Normal kidneys. Assessment & Plan Assessment & Plan (1) Calculus of kidney: Code(s): N20.0 - Calculus of kidney Category: Medical Plan Recent renal imaging results reviewed with the patient today; as noted above. Patient currently denies any bothersome urinary issues or concerns. She reports be happy with current voiding parameters. We discussed potential causes of nephrolithiasis as well as further metabolic workup. Will continue with surveillance monitoring at this time. Will obtain renal ultrasound in 6 months. Discussed, educated, and stressed the importance of adequate hydration relation to the nephrolithiasis as well as overall health and well-being. Continue adding 1 oz of lemon juice to water daily. Follow-up in 6 months with imaging to be completed prior; or sooner with any issues, concerns, and or questions. Orders: Orders US renal BI 6 Months N20.0 - Calculus of kidney Patient Instructions: The patient had an opportunity to ask questions regarding the treatment plan. All questions were answered. Physical exam, labs, and imaging were discussed and reviewed in detail. As well as risks, benefits, and discussion of treatment choices. No major barriers to understanding were identified. The patient expressed understanding and agreement with the above treatment plan. The patient was made aware they should contact our office by phone for worsening of their current condition, the appearance of new symptoms, or with any questions or concerns. Compliance is encouraged with any medications and follow up testing that is ordered. It is a privilege to be allowed the opportunity to participate in? your urological care.? Again, if you have any questions or concerns If you have any questions or concerns please do not hesitate to contact me. The office is [phone]. This note is constructed using voice recognition software. While every effort has been made to ensure accuracy iv rn errors may have been included. Yours sincerely, ROBSON Uribe Coding Level of Care Code Tele Est Pt Level 3 (37332) Diagnoses Calculus of kidney N20.0
--- OUTSIDE RECORDS SUMMARY | 2024-09-29 07:34 | XMS_ITS | Encounter Summary ---
Author Organization [employer] Address [address] [place] [address] Care Team Providers Care Employee Benefits Insurance Agent Name Role Phone Ej Ceron MD Primary Care Prov ider Encounter Details Date Type Department Care Team (Latest Contact Info) Description 09/28/2024 Travel Social History Tobacco Use Types Packs/Day Years [...] Care Team (Late st Contact Info) Description 11/03/2024 10:30 AM EDT Clinical Support [facility] [address] [place] [address] Roz Christopher, MARANDA [address] [place] [address] documented as of this encounter Visit Diagnoses Not on filedocumented in this encounter Additional Health Concerns Assessment Noted Time PHQ-9 Depression Total Score: 0 05/17/20 24 2:24 PM EST documented as of this encounter Care Teams Employee Benefits Insurance Agent Relationship Specialty Start Date End Date Ej Ceron MD [address] [place] [address] PCP - General Internal Medicine 06/08/24 documented as of this encounter
--- OUTSIDE RECORDS SUMMARY | 2024-09-29 07:34 | XMS_ITS | Clinical Summary ---
Author Organization [facility] [employer] [facility] Address [address] [place] [address] Care Team Providers Care Knitted Cloth Examiner Name Role Phone Ej Ceron Primary Care Provide r Encounters Date Type Department Care Team Description 08/12/2024 12:50 PM EST - 08/12/2024 11:59 PM EST Hospital Encounter Xray [address] [place] [phone] Pain in left shoulder; Other chronic pain Discharge Disposition: Home or Self Care 08/02/2024 10:44 AM EST - 08/02/2024 11:59 PM EST Hospital Encounter [facility] at [address] [phone] Encounter for screening mammogram for malignant neoplasm [...] age to complete this topic Meningococcal B Vaccine Aged Out No l onger eligible based on patient's age to complete [...] left lateral third and fourth ribs. Code 42672 -------- FINAL REPORT -------- Dictated By: Kahlil Torres Dictated Date: 08/15/2024 08:04 ET Assigned Physician: Kahlil Torres Reviewed and Electronically Signed By: Kahlil Torres Signed Date: 08/15/2024 08:06 ET Workstation ID: [id number] Transcribed By: Self Edit Transcribed Date: 08/15/2024 [...] left lateral third and fourth ribs. Code 30560 -------- FINAL REPORT -------- Dictated By: Kahlil Torres Dictated Date: 08/15/2024 08:04 ET Assigned Physician: Kahlil Torres Reviewed and Electronically Signed By: Kahlil Torres Signed Date: 08/15/2024 08:06 ET Workstation ID: [id number] Transcribed By: Self Edit Transcribed Date: 08/15/2024 [...] Signed Date: 08/04/2024 09:29 ET Workstation ID: [id number] Transcribed By: Self Edit Transcribed Date: 08/04/2024 [...] Signed Date: 08/04/2024 09:29 ET Workstation ID: [id number] Transcribed By: Self Edit Transcribed Date: 08/04/2024 09:24 ET us Ej VALENZUELA BI PROCEDURES Fin al Result * CT LUNG SCREENING LOW DOSE (04/12/2024 4:12 PM EDT) Anatomical Region Laterality Modality Computed Tomogra phy 04/12/2024 3:30 PM EDT Narrative 04/12/2024 4:12 PM EDT [facility] Diagnostic Imaging Department [address] [place] [address] [id number] Patient: ??TEJAL ESTRADA ?/Age/Sex: 1955 - 69 - F Unit#: ??[id number] ? Location/Status: ??SPDICATLS/REG CLI ? Mnemonic/Ordering Site: [...] Procedure Note Reginald Bennett MD - 04/19/2024 [facility] Diagnostic Imaging Department [address] [place] [id number] Patient: TEJAL ESTRADA [facility] /Age/Sex: 1955 - 69 - F Unit#: [id number] Location/Status: [facility] Mnemonic/Ordering Site: [facility] Ordering Physician: ERMELINDA TAMAYO MD [...] by: REGINALD BENNETT MD Dic Date/Time: 04/12/24 1602 Sign date/Time: 04/12/24 1613 Ermelinda Tamayo MD [...] (World Health Organization Fracture Risk Assessment) [facility] Department of Internal Medicine recommends using [...] alternative screening schedule based on trista Suero., [facility] July 10, 2011 for [...] years. (World HealthOrganization Fracture Risk Assessment) [facility] Department of Internal Medicine recommendsusing National [...] alternative screening schedule based on trista Suero., [facility] for patients with osteopenia (based on hip BMD T-score) is as follows: * advanced osteopenia (T scores -2.00 to -2.49), BMD testing every year * moderate osteopenia (T scores -1.50 to -1.99), BMD testing every 5years mild osteopenia or normal BMD (T scores -1.50 and higher), BMD testingevery 15 years John Cerrato MD [facility] DXA PROCEDURES Final Res ult from Last 3 Months or Most Recently Relevant to Health Maintenance Insurance [facility] [place] [address] Care Teams Knitted Cloth Examiner Relationship Specialty Start Date End Date Ej Ceron [address] [place] [address] PCP - General Internal Medicine 07/19/24
--- OUTSIDE RECORDS SUMMARY | 2024-09-29 07:34 | XMS_ITS | Encounter Summary ---
Author Organization [employer] Address [address] [facility] [address] [place] [address] Care Team Providers Care Clerk Manager Name Role Phone Ej Ceron MD Primary Care Prov ider Encounter Details Date Type Department Care Team (Late st Contact Info) Description 08/04/2024 Orders Only [facility] [address] [place] [address] Provider, MD [place] Social History Tobacco Use [...] Upcoming Encounters Date Type Department Care Team ([facility] st Contact Info) Description 11/03/2024 10:30 AM EDT Clinical Support [facility] [address] [place] [address] Roz Christopher, MARANDA [address] [place] [address] documented as of this encounter Procedures Procedure [...] documented as of this encounter Care Teams Clerk Manager Relationship Specialty Start Date End Date Ej Ceron MD [address] [place] [address] PCP - General Internal Medicine 06/08/24 documented as of this encounter
--- OUTSIDE RECORDS SUMMARY | 2024-09-29 07:34 | XMS_ITS | Encounter Summary ---
Author Organization [employer] Address [address] [place] [address] Care Team Providers Care Lithographic Artist Name Role Phone Ej Ceron MD Primary Care Prov ider Reason for Visit * Reason Comments controlled substance treatment Encounter Details Date Type Department Care Team (Latest Contact Info) Description 09/28/2024 10:00 AM EDT Clinical Support [facility] [address] [place], [place] [phone] Roz Christopher, RN [address] [place] [address] Chronic midline low back pain without sciatica (Primary Dx); Long-term current use of opiate analgesic Social History Tobacco Use Types Packs/Day Years [...] PM EST documented as of this encounter Progress Notes * Roz Christopher RN - 09/28/2024 10:00 AM EDT S: BOOK JACKET COVER MACHINE OPERATOR initial NV. Current rx Tramadol 50mg Q 12hr PRN. Patient states has been taking as prescribed. Reports no adverse reactions. Current pain level 8/10. States pain is located in both knees, lower back, hands and shoulders. States med usually provides about 80%% pain relief. Patient denies ETOH, nicotine or illicit drug use. No questions/ concerns at this time. Chronic pain group pamphlet given, patient not interested at this time. BOOK JACKET COVER MACHINE OPERATOR Agreement renewed today. O: FOOD PREP WORKER verified 09/28/24. Pill count performed. Pt has 6 pills at this time, 5 expected. Medication is not overused by patient. Last PCP f/u 08/25/24. .BPI updated today. Pain severity score of (7), activity interference score of (3). ..SHARRI 7 screening done, total score 0. ..opioid risk tool completed,total score 0. Utox performed, positive for TCA only, as expected. Last PCP visit 08/02/24. A: BOOK JACKET COVER MACHINE OPERATOR Visit; Chronic opioid use related to pain. P: Patient to continue taking medication only as prescribed; Next BOOK JACKET COVER MACHINE OPERATOR NV appointment scheduled for 11/03/24 @ 10:30am. F/u sooner PRN. Patient verbalized understanding and agreed to plan. documented in this encounter Plan of Treatment Upcoming Encounters Date Type Department Care Team (Late st Contact Info) Description 11/03/2024 10:30 AM EDT Clinical Support [facility] [address] [place] [address] Roz Christopher, RN [address] [place] [address] documented as of this encounter Procedures Procedure Name Priority Date/Time Associated Diagnosis Comments POCT MARIZA-14 URINE DRUG SCREEN Routine 09/28/2024 10:04 AM EDT Long-term current use of opiate analgesic Chronic midline low back pain without sciatica documented in this encounter Results * POCT MARIZA-14 Urine Drug Screen (09/28/2024 10:04 AM EDT) TCA, Urine Positive Urine Urine specimen obtained by clean catch procedure / Unknown 09/28/2024 10:04 AM EDT Narrative Roz Christopher RN - 09/28/2024 10:04 AM EDT Lot# [id number] Exp: 02-08-26 jE Shen MD POINT OF CARE TEST ENTER/EDIT ORDERABLES Final Result documented in this encounter Visit Diagnoses Diagnosis Chronic midline low back pain without sciatica- Primary Long-term current use of opiate analgesic Encounter for long-term (current) use of other medications documented in this encounter Additional Health Concerns Assessment Noted Time PHQ-9 Depression Total Score: 0 05/17/20 2:24 PM EST documented as of this encounter Care Teams Lithographic Artist Relationship Specialty Start Date End Date Ej Ceron MD [address] [place] [address] PCP - General Internal Medicine 06/08/24 documented as of this encounter
--- OUTSIDE RECORDS SUMMARY | 2024-09-29 07:34 | XMS_ITS | Encounter Summary ---
Author Organization [employer] Address [address] [place] [address] Care Team Providers Care Warehouse Order Selector Name Role Phone Ej Ceron MD Primary Care Prov ider Reason for Visit * Reason Onset Date Comments Med Refill 09/08/2024 Encounter Details Date Type Department Care Team (Late st Contact Info) Description 09/08/2024 Telephone [facility] [address] [place] [address] Ej Ceron MD [address] [place], [place] [phone] Med Refill Social History Tobacco Use Types [...] 50 MG tablet To be sent to: [facility]- [address] [place] [phone] documented in this encounter Plan of Treatment Upcoming Encounters Date Type Department Care Team (Late st Contact Info) Description 11/03/2024 10:30 AM EDT Clinical Support [facility] MED & PEDS [address] [place] [address] Roz Christopher RN [address] [place] [address] documented as of this encounter Visit Diagnoses Not on filedocumented in this encounter Additional Health Concerns Assessment Noted Time PHQ-9 Depression Total Score: 0 05/17/20 2:24 PM EST documented as of this encounter Care Teams Warehouse Order Selector Relationship Specialty Start Date End Date Ej Ceron MD [address] [place] [address] PCP - General Internal Medicine 06/08/24 documented as of this encounter
--- OUTSIDE RECORDS SUMMARY | 2024-09-29 07:34 | XMS_ITS | Clinical Summary ---
Author Organization [employer] Address [address] [facility] 7t [place] [address] Care Team Providers Care Casing In Line Feeder Name Role Phone Ej Ceron MD Primary [...] Active Problems Problem Noted Date Diagnosed Date Long-term current use of opiate analgesic 2024 Acquired hypothyroidism 08/03/2024 Assessment & Plan (08/03/2024 [...] Pmhx: hypothyroidism, GERD, Hyperlipidemia,OA Pshx: bowel resection 2003 due to diverticulitis, right shoulder 2009 All: morphine/bactrim Meds: as above [id number] Had colonoscopy 7-8 years ago, will review gi consult Encounter for screening mamm ogram for malignant neoplasm of breast 07/08/2024 Assessment & Plan (07/08/2024 3:22 PM EST): Will order a breast mammogram Menopause 07/08/2024 Assessment & Plan (07/08/2024 3:23 PM EST): Will order a bone density scan Encounters Date Type Department Care Team Description 09/28/2024 10:00 AM EDT Clinical Support [facility] [address] [place] [address] Roz Christopher RN Chronic midline low back pain without sciatica (Primary Dx); Long-term current use of opiate analgesic 09/28/2024 Telephone [facility] [address] [place] [address] Roz Christopher RN 09/28/2024 Travel 09/22/2024 Orders Only [facility] [address] [place] [address] Ej Ceron MD Chronic left shoulder pain (Primary Dx) 09/19/2024 Orders Only [facility] [address] [place] [address] Ej Ceron MD 09/14/2024 Travel 09/08/2024 Orders Only [facility] External Provider, [facility] 09/08/2024 Telephone [facility] [address] [place] [address] Roz Christopher RN motion picture set worker 09/08/[address] [address] Ej Ceron MD Medication Question 09/08/[address] [address] Ej Ceron MD Med Refill 09/08/[address] [place] [address] Ej Ceron MD Med Refill 09/06/2024 Refill [facility] [address] [place] [address] Ej Ceron MD 09/05/2024 Orders Only [facility] [address] [place] [address] Ej Ceron MD Acquired hypothyroidism (Primary Dx) 09/05/2024 Orders Only [facility] [address] [place] [address] Ej Ceron MD 08/10/2024 Refill [facility] [address] [place] [address] Ej Ceron MD 08/10/2024 Refill [facility] [address] [place], [place] [phone] Ej Ceron MD Chronic midline low back pain without sciatica 08/04/2024 Orders Only [facility] [address] [place] [address] Charlotte Wong MD 08/02/2024 3:30 PM EST Office Visit [facility] [address] [place] [address] Ej Ceron MD Acquired hypothyroidism (Primary Dx); Dietary counseling; Exercise counseling; Gastroesophageal reflux disease without esophagitis; Age-related osteoporosis without current pathological fracture; Mixed hyperlipidemia; Major depressive disorder in full remission, unspecified whether recurrent ([facility]); Chronic left shoulder pain; Pharyngeal dysphagia 08/02/2024 Travel 07/14/2024 Refill [facility] [address] [place] [address] Ej Ceron MD Chronic midline low back [...] Description 11/03/2024 10:30 AM EDT Clinical Support [facility] [address] [place] [address] Roz Christopher, RN [address] [place] [address] Health Maintenance Due Date Last Done Comments [...] Chronic midline low back pain without sciatica US RENAL BI Routine 09/09/2024 8:27 AM [...] EST from Last 3 Months Results * POCT MARIZA-14 Urine Drug Screen (09/28/2024 10:04 AM EDT) TCA, Urine Positive Urine Urine specimen obtained by clean catch procedure / Unknown 09/28/2024 10:04 AM EDT Narrative Roz Christopher RN - 09/28/2024 10:04 AM EDT Lot# [id number] Exp: 02-08-26 us Ej Shen MD POINT OF CARE TEST ENTER/EDIT ORDERABLES Final Result * US RENAL BI (09/09/2024 8:27 AM EDT) Anatomical Region Laterality Modality Abdomen Ultrasound 09/09/2024 8:27 AM EDT Narrative 09/09/2024 8:28 AM EDT ? [facility] ?[address] ?[place] [address] ? Ultrasound Report ? Signed ? Patient: Bin,Tejal ?MR#: [id number] ?? 0 ? : 1955 ?Acct:[id number] ? Age/Sex: 69 / F ?ADM Date: 03/20/25 ? Loc: HO.US ? Attending Dr: Dinorah CHANCE ? Ordering Physician: Dinorah Clemons ?? Date of Service: 09/08/24 ?? Procedure(s): US renal BI ?? Accession Number(s): [id number] ? cc: Ej Ceron MD; Dinorah Clemons [...] signed by Kahlil Ramirez MD in OV> ?09/09/24 0828 ? DD/ 6 ? TD/TT: 09/09/24826 ? Family Independence Case Manager: ? Procedure Note Donryanter, Image - 09/09/2024 [place] [address] Ultrasound Report Signed Patient: Tejal StewardMR#: [id number] 0 : 1955cct:[id number] Age/Sex: 69 / FADM Date: 09/08/24 Loc: HO. Attending Dr: Dinorah CHANCE Ordering Physician: Dinorah Clemons Date of Service: 09/08/24 Procedure(s): US renal BI Accession Number(s): [id number] cc: Ej Ceron MD; Dinorah Clemons CLINICAL HISTORY: N20.0 - Calculus of kidney [...] in OV> 09/09/24827 DD/ 6 TD/TT: 09/09/24826 Family Independence Case Manager: us [facility] External Provider IMG US PROCEDURES Final Result * (ABNORMAL) TSH W/Reflex to FT4 (09/05/2024 11:01 AM EDT) TSH reflex Free T4 13.05(H) 0.32 - 4.0 uIU/mL [facility] Blood Venous blood specimen / Unknown 09/05/2024 11:01 AM EDT 09/05/2024 2:19 PM EDT Ej Shen MD LAB BLOOD ORDERABL ES Final Result [facility] [address] [place] [phone] * CBC auto differential (09/05/2024 11:01 AM EDT) White Blood Count 6.5 4.8 - 10.8 X10*3/uL [facility] Red Blood Count 4.72 4.20 - 5.50 X10*6/uL [facility] Hemoglobin 13.8 12.0 - 16.0 g/dl [facility] Hematocrit 42.6 37.0 - 47.0 % [facility] Mean Corpuscular Volume 90.3 80.0 - 98.0 fL [facility] Mean Corpuscular Hemoglobin 29.2 27.0 - 33.0 pg [facility] Mean Corpuscular HGB Conc 32.4 31.0 - 35.0 g/dl [facility] Red Cell Distribution Width 13.2 11.0 - 16.0 % [facility] Platelet Count 381 160 - 400 X10*3/uL [facility] Mean Platelet Volume 10.7 9.4 - 12.3 fL [facility] Neutrophils Percent Auto 55.8 45 - 73 % [facility] Imm Gran Pct Auto 0.2 0.0 - 0.4 % [facility] Lymphocytes Percent Auto 32.7 20 - 40 % [facility] Monocytes Percent Auto 6.8 2 - 11 % [facility] Eosinophils Percent Auto 3.4 0 - 4 % [facility] Basophils Percent Auto 1.1 0 - 2 % [facility] NRBC Pct Auto 0.0 0.0 - 0.2 /100WBC [facility] Neutrophils Absolute Auto 3.6 2.0 - 8.3 x10*3/uL [facility] Imm Gran Abs Auto 0.01 0.00 - 0.03 X10*3/uL [facility] Lymphocytes Absolute Auto 2.1 1.2 - 4.9 X10*3/uL [facility] Monocytes Absolute Auto 0.4 0.1 - 1.2 X10*3/uL [facility] Eosinophils Absolute Auto 0.2 0.0 - 0.4 X10*3/uL [facility] Basophils Absolute Auto 0.1 0.0 - 0.2 X10*3/uL [facility] NRBC Abs Auto 0.000 0.0 - 0.012 X10*3/uL [facility] Blood Venous blood specimen / Unknown 09/05/2024 11:01 AM EDT 09/05/2024 2:19 PM EDT Ej Shen MD LAB BLOOD ORDERABL ES Final Result Performing Organization Address [facility]/ZIP Co de Phone Number [facility] [address] [place] [phone] * Hepatitis C Antibody with Reflex to HCV, RNA, Quantitative, Real-Time PCR (09/05/2024 11:01 AM EDT) Hepatitis C Antibody Nonreactive Nonreactive [facility] Comment:Antibodies to HCV no t detected; does not exclude early acuteHCV infection. Blood Venous blood specimen / Unknown 09/05/2024 11:01 AM EDT 09/05/2024 2:19 PM EDT Ej Shen MD LAB BLOOD ORDERABL ES Final Result [facility] [address] [place] [phone] * T4, Free (09/05/2024 11:01 AM EDT) Free T4 (Free Thyroxine) 1.13 0.71 - 1.85 ng/dL [facility] 09/05/2024 11:0 1 AM EDT 09/05/2024 2:19 PM EDT us Ej Shen MD LAB BLOOD ORDERABL ES Final Result Performing Organization Address [facility] Co de Phone Number [facility] [address] [place] [phone] * Hemoglobin A1c (09/05/2024 11:01 AM EDT) Hemoglobin A1c 5.4 <6.0 % [facility] Comment:Hemoglobin A1C Refer ence Range Adults: 4.8 - 6.0 % Non diabetic: < 6.0 % Goal: < 7.0 %Additional Action Suggested: > 8.0 %Note: Hemoglobin A1c results are invalid for patients with abnormal amounts of HbF. Blood transfusions may impact the HbA1c concentration in the patient sample. Estimated Average Glucose 108 mg/dL [facility] Comment:eAG = Estimated ave rage glucose which is %A1C expressed asaverage glucose, using the formula of the [id number] Glucose study (ADAG), Diabetes Care, Vol.31,#8,Jan. 2007 Blood Venous blood specimen / Unknown 09/05/2024 11:01 AM EDT 09/05/2024 2:19 PM EDT Ej Shen MD LAB BLOOD ORDERABL ES Final Result Performing Organization Address [facility] Co de Phone Number [facility] [address] [place] [phone] * Lipid Panel, Standard (09/05/2024 11:01 AM EDT) Triglycerides 107 <150 mg/dL [facility] Comment:Desirable Triglyceri de: less than 150 mg/dLBorderline High Triglyceride 150-199 mg/dLHigh Triglyceride: 200-499 mg/dLVery High Triglyceride: greater than or equal to 5OO mg/dL Cholesterol 163 <200 mg/dL [facility] Comment:Desirable Cholestero l: less than 200 mg/dLBorderline High Cholesterol: 200-239 mg/dLHigh Cholesterol: greater than 239 mg/dL LDL Cholesterol Calculated 96 <100 mg/dL [facility] Comment:Desirable LDL: less than 100 mg/dLNear Optimal/Above Optimal LDL: 110- 129 mg/dLBorderline High LDL: 130-159 mg/dLHigh LDL: 160-189 mg/dLVery High LDL: greater than or equal to 190 mg/dL HDL Cholesterol 46 >40 mg/dL [facility] Comment:Desirable HDL: great er than 40 mg/dL Note: This HDL assay may give artificially low results in patients with liver disease. Blood Venous blood specimen / Unknown 09/05/2024 11:01 AM EDT 09/05/2024 2:19 PM EDT Ej Shen MD LAB BLOOD ORDERABL ES Final Result [facility] [address] [place] [phone] * (ABNORMAL) Comprehensive Metabolic Panel (09/05/2024 11:01 AM EDT) Sodium 139 135 - 145 mmol/L [facility] Potassium 4.7 3.3 - 5.1 mmol/L [facility] Chloride 108 96 - 108 mmol/L [facility] Carbon Dioxide 25 22 - 29 mmol/L [facility] Anion Gap 11(L) 12 - 20 [facility] Urea Nitrogen (BUN) 14 9 - 16 mg/dL [facility] Creatinine, Serum 0.92 0.5 - 1.4 mg/dL [facility] Estimated Glomerular Filt Rate >60 [facility] Comment:Chronic Kidney Disea se: Estimated GFR < 60 mL/min/[id number] Kidney Disease: Estimated GFR < 15 mL/min/1.73m2 Glucose 79 60 - 115 mg/dL [facility] Calcium 9.2 8.4 - 10.2 mg/dL [facility] Bilirubin, Total 0.4 0.0 - 1.0 mg/dL [facility] Aspartate Amino Transferase 21 5 - 31 U/L [facility] Alanine Aminotransferase 15 0 - 31 U/L [facility] Total Protein 6.9 6.5 - 8.0 g/dL [facility] Albumin Level 4.0 3.5 - 5.0 g/dL [facility] Alkaline Phosphatase 97 39 - 117 U/L [facility] Blood Venous blood specimen / Unknown 09/05/2024 11:01 AM EDT 09/05/2024 2:19 PM EDT Ej Shen MD LAB BLOOD ORDERABL ES Final Result [facility] [address] [place] [phone] * XR Shoulder 2+ Views Left (08/12/2024) Anatomical Region Laterality Modality Upper Extremities, Shoulder Left Radi ographic Imaging Ej Shen MD IMG XR PROCEDURES Final Result * MM DIGITAL MAMMO BILATERAL (08/02/2024 1:09 PM EST) Anatomical Region Laterality Modality Mammography Historical Provider IMG BI PROCEDURES Final R esult from Last 3 Months Insurance [facility] MEDICARE REPLACEMENT Care Teams Casing In Line Feeder Relationship Specialty Start Date End Date Ej Ceron MD [address] [place] [phone] PCP - General Internal Medicine 06/08/24
--- OUTSIDE RECORDS SUMMARY | 2024-09-29 07:34 | XMS_ITS | Encounter Summary ---
Author Organization [employer] Address [address] [facility] [facility] [address] [place] [address] Care Team Providers Care Packing Machine Can Feeder Name Role Phone Ej Ceron MD Primary Care Prov ider Reason for Visit * Reason Onset Date Comments Med Refill 09/08/2024 Encounter Details Date Type Department Care Team (Late st Contact Info) Description 09/08/2024 Telephone [facility] [address] [place] [address] Ej Ceron MD [address] [place], [place] [phone] Med Refill Social History Tobacco Use Types [...] 100 MG capsule To be sent to: [facility]- [address] [place] [phone] documented in this encounter Plan of Treatment Upcoming Encounters Date Type Department Care Team (Late st Contact Info) Description 11/03/2024 10:30 AM EDT Clinical Support [facility] [address] [place] [address] Roz Christopher RN [address] [place] [address] documented as of this encounter Visit Diagnoses Not on filedocumented in this encounter Additional Health Concerns Assessment Noted Time PHQ-9 Depression Total Score: 0 05/17/20 2:24 PM EST documented as of this encounter Care Teams Packing Machine Can Feeder Relationship Specialty Start Date End Date Ej Ceron MD [address] [place] [address] PCP - General Internal Medicine 06/08/24 documented as of this encounter
--- OUTSIDE RECORDS SUMMARY | 2024-09-29 07:34 | XMS_ITS | Encounter Summary ---
Author Organization [email or web address] Address [address] [place] [address] Care Team Providers Care Turn Sewer Name Role Phone Ej Ceron MD Primary Care Prov ider Encounter Details Date Type Department Care Team (Late st Contact Info) Description 09/28/2024 Telephone [facility] [address] [place], [place] [phone] Roz Christopher, MARANDA [address] [place], [place] [phone] Social History Tobacco Use Types Packs/Day Years [...] Telephone Encounter - Roz Christopher RN - 09/28/2024 10:17 AM EDT Pt here for initial [employer] [place]. 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 States she was advised to check with PCP if she can stop Aspirin 81mg a week before the procedure. Please advise. documented in this encounter Plan of Treatment Upcoming Encounters Date Type Department Care Team (Late st Contact Info) Description 11/03/2024 10:30 AM EDT Clinical Support [facility] [address] [place] [address] Roz Christopher RN [address] [place] [address] documented as of this encounter Visit Diagnoses Not on filedocumented in this encounter Additional Health Concerns Assessment Noted Time PHQ-9 Depression Total Score: 0 05/17/20 24 2:24 PM EST documented as of this encounter Care Teams Turn Sewer Relationship Specialty Start Date End Date Ej Ceron MD [address] [place] [address] PCP - General Internal Medicine 06/08/24 documented as of this encounter
--- OUTSIDE RECORDS SUMMARY | 2024-09-29 07:34 | XMS_ITS | Encounter Summary ---
Author Organization [employer] Address [address] [address] [facility] [place] [address] Care Team Providers Care Weight And Test Bar Clerk Name Role Phone Ej Ceron MD Primary Care Prov ider Reason for Visit * Reason Onset Date Comments Med Refill 06/08/2024 Encounter Details Date Type Department Care Team (Late st Contact Info) Description 06/08/2024 Telephone [facility] [address] [place] [address] Ej Ceron MD [address] [place], [place] [phone] Med Refill Social History Tobacco Use Types [...] tablets a Day. To be sent to: [id number] - [place], [place] - [address] [facility] [address] [facility] [address] documented in this encounter Plan of Treatment Upcoming Encounters Date Type Department Care Team ([facility] st Contact Info) Description 11/03/2024 10:30 AM EDT Clinical Support [facility] [address] [place] [address] Roz Christopher RN [address] [place] [address] documented as of this encounter Visit Diagnoses Not on filedocumented in this encounter Additional Health Concerns Assessment Noted Time PHQ-9 Depression Total Score: 0 05/17/20 2:24 PM EST documented as of this encounter Care Teams Weight And Test Bar Clerk Relationship Specialty Start Date End Date Ej Ceron MD [address] [place] [address] PCP - General Internal Medicine 06/08/24 documented as of this encounter
== END 2024-09-29 08:04 | disposition home or self-care (01) ==
LOC: HO.HUSH 07:32
PROVIDERS: PCP Internal Medicine; Visit Provider Nurse Practitioner Family
DX: N20.0 Calculus of kidney (principal)
CPT/HCPCS: 99213

== ENCOUNTER → 2024-09-29 07:32 | Outpatient (BNVA) | payer MEDICARE, SELFPAY | PROVIDERS: PCP Internal Medicine; Visit Provider Nurse Practitioner Family ==

== ENCOUNTER 2025-04-10 18:43 | Outpatient (REF) | payer MEDICARE, SELFPAY ==
--- OUTSIDE RECORDS SUMMARY | 2025-04-10 13:40 | XMS_ITS | Encounter Summary ---
Author Organization [employer] Address [address] [facility] 7t [place] [address] Care Team Providers Care Kettle Operator Name Role Phone Ej Ceron MD Primary Care Prov ider Reason for Referral * Consultation (Routine) - Pending Review Specialty Diagnoses / Procedures Referred By Vlad cabrera Referred To Contact Cardiology Diagnoses Smoker SOB (shortness of breath) on exertion Family history of LA (myocardial infarction) Mixed hyperlipidemia Dot Fisher MD [address] [place] [address] Phone: tel: fax: Referral ID Status Reason Start Date Expiration Date Visits Requested Visits Authorized [id number] Pending Review Specialty Services Required 04/10/2026 1 1 * PFT (Routine) - Authorized Specialty Diagnoses / Procedures Referred By Vlad cabrera Referred To Contact Diagnoses Smoker SOB (shortness of breath) on exertion Procedures Pulmonary Function Test Dot Fisher MD [address] [place] [address] Phone: tel: fax: [address] Phone: tel: fax: Referral ID Status Reason Start Date Expiration Date V isits Requested Visits Authorized [id number] Authorized 04/10/2025 04/10/2026 1 1 Encounter Details Date Type Department Care Team (Latest Contact Info) Description 04/10/2025 1:40 PM EDT Office Visit [facility] MED & PEDS [address] [place] [address] Dot Fisher MD [address] [place] [address] Cystitis (Primary Dx); Smoker; SOB (shortness of breath) on exertion; Family history of LA (myocardial infarction); Mixed hyperlipidemia; Acquired hypothyroidism Social History Tobacco Use Types Packs/Day Years [...] is your housing situation today? I have wilfreod juarez 05/17/[address] you [...] Sign Reading Time Taken Comments Blood Pressure 140/70 04/10/2025 1:16 PM EDT Pulse 86 04/10/2025 1:16 PM EDT Temperature 36.7 C (98.1 F) 04/10/2025 1:16 PM EDT Respiratory Rate 20 04/10/2025 1:16 PM EDT Oxygen Saturation 98% 04/10/2025 1:16 PM EDT Inhaled Oxygen Concentration - - Weight 81.2 kg (179 lb) 04/10/2025 1:16 PM EDT Height - - Body Mass Index 29.33 10/14/2024 11:14 AM EDT documented in this encounter Progress Notes * Dot Fisher MD - 04/10/2025 1:40 PM EDT Subjective Patient ID: Tejal Steward is a 70 y.o. female who presents for UTI. UTI This is a new problem. The current episode started yesterday. The problem is unchanged. Pertinent negatives include no hematuria or pain. Risk factors include kidney stones. Shortness of Breath This is a chronic problem. The current episode started more than 1 month ago. The problem occurs daily. The problem has been unchanged. Pertinent negatives include no abdominal pain, chest pain, claudication, coryza, fever, hemoptysis, leg pain, leg swelling, orthopnea, PND, rhinorrhea, syncope, vomiting or wheezing. The symptoms are aggravated by any activity. The patient has no known risk factors for DVT/PE. She has tried nothing for the symptoms. There is no history of allergies, CAD or a recent surgery. Review of Systems Constitutional: Negative for fever. HENT: Negative for rhinorrhea. Respiratory: Positive for shortness of breath. Negative for cough, hemoptysis, chest tightness and wheezing. Cardiovascular: Negative for chest pain, palpitations, orthopnea, claudication, leg swelling, syncope and PND. Gastrointestinal: Negative for abdominal pain and vomiting. Genitourinary: Negative for difficulty urinating, dyspareunia, flank pain, hematuria and vaginal discharge. Psychiatric/Behavioral: Negative for sleep disturbance. Objective BP (!) 140/70 (BP Location: Left arm, Patient Position: Sitting, BP Cuff Size: Adult) Pulse 86 Temp 98.1 ??F (36.7 ??C) (Oral) Resp 20 Wt 179 lb (81.2 kg) SpO2 98% BMI 29.33 kg/m?? Physical Exam Constitutional: General: She is not in acute distress. Appearance: Normal appearance. She is not ill-appearing. HENT: Head: Normocephalic. Right Ear: Tympanic membrane and ear canal normal. Left Ear: Tympanic membrane and ear canal normal. Nose: Nose normal. Mouth/Throat: Mouth: Mucous membranes are moist. Pharynx: No oropharyngeal exudate or posterior oropharyngeal erythema. Eyes: Extraocular Movements: Extraocular movements intact. Conjunctiva/sclera: Conjunctivae normal. Pupils: Pupils are equal, round, and reactive to light. Cardiovascular: Rate and Rhythm: Normal rate and regular rhythm. Pulses: Normal pulses. Heart sounds: Normal heart sounds. No murmur heard. Pulmonary: Effort: Pulmonary effort is normal. No respiratory distress. Breath sounds: Normal breath sounds. Abdominal: General: There is no distension. Palpations: Abdomen is soft. There is no mass. Tenderness: There is no right CVA tenderness, left CVA tenderness or rebound. Musculoskeletal: General: Normal range of motion. Cervical back: Normal range of motion. Right lower leg: No edema. Left lower leg: No edema. Skin: General: Skin is warm. Capillary Refill: Capillary refill takes less than 2 seconds. Neurological: General: No focal deficit present. Mental Status: She is alert and oriented to person, place, and time. Psychiatric: Mood and Affect: Mood normal. Behavior: Behavior normal. Thought Content: Thought content normal. Judgment: Judgment normal. Assessment/Plan Diagnoses and all orders for this visit: Cystitis Comments: Macrobid Bid x 5 days started, increase fluid intake, urine culture sent, dont miss Kidney US as scheduled by urology. Orders: - POCT Urinalysis - Culture, Urine, Routine Smoker Comments: Quit smoking 6 months ago, gets low radiation lung CT yearly,has one scheduled next week. Orders: - Pulmonary Function Test; Future - Referral to Cardiology; Future SOB (shortness of breath) on exertion Comments: Pulmonary vs cardiac etiology/PFTs as outpatient ordered,albuterol prn SOB started, continue to notsmoke tobacco importance disussed. Orders: - Pulmonary Function Test; Future - Referral to Cardiology; Future Family history of LA (myocardial infarction) Comments: Due to exertional SOB will refer for cardiac workup due to elevated risks of CAD. Orders: - Referral to Cardiology; Future Mixed hyperlipidemia Comments: Stable on high dose statin therapy. Orders: - Referral to Cardiology; Future Acquired hypothyroidism Comments: Tfts at goal. Other orders - nitrofurantoin, macrocrystal-monohydrate, (Macrobid) 100 MG capsule; Take 1 capsule (100 mg) by mouth 2 times daily for 5 days. - albuterol 108 (90 Base) MCG/ACT inhaler; Inhale 2 puffs every 4 (four) hours if needed for wheezing. documented in this encounter Plan of Treatment Upcoming Encounters Date Type Department Care Team (Late st Contact Info) Description 05/25/2025 11:00 AM EST Clinical Support [facility] MED & PEDS [address] [place] [address] Roz Christopher RN [address] [place] [address] 06/06/2025 9:30 AM EST Office Visit [facility] [address] [place] [address] Ej Ceron MD [address] [place] [address] Scheduled Orders Name Type Priority Associated Diagnoses Orde r Schedule Pulmonary Function Test PFT Routine Smoker SOB (shortness of breath) on exertion Expected: 04/10/2025, Expires: 10/09/2025 Culture, Urine, Routine Microbiology Routine Cystitis Ordered: 04/10/2025 Scheduled Referrals Name Type Priority Associated Diagnoses Orde r Schedule Referral to Cardiology Outpatient Referral Routine Smoker SOB (shortness of breath) on exertion Family history of LA (myocardial infarction) Mixed hyperlipidemia Expected: 04/10/2025 (Approximate), Expires: 04/10/2026 documented as of this encounter Procedures Procedure Name Priority Date/Time Associated Diagnosis Comments POCT URINALYSIS DIPSTICK Routine 04/10/2025 1:42 PM EDT Cystitis documented in this encounter Results * (ABNORMAL) POCT Urinalysis (04/10/2025 1:42 PM EDT) Color, UA Yellow Clarity, UA Turbid Glucose, UA Negative Bilirubin, UA Negative Ketones, UA Negative Spec Grav, UA 1.020 Blood, UA Positive(A) Negative, None Detected Comment:small pH, UA 6.5 Protein, UA Negative Urobilinogen, UA 0.2 Leukocytes, UA Moderate(A) Negative, Rare, Trace Nitrite, UA Negative Negative, None Detected Appearance, UA turbid QC Media Lot # [id number] Lot# Expiration Date Urine (Urine, Random) 04/10/2025 1:42 PM EDT Dot Fisher MD POINT OF CARE TEST ENTER/EDIT ORDERABLES Final Result documented in this encounter Visit Diagnoses Diagnosis Cystitis- Primary Unspecified cystitis Smoker Tobacco use disorder SOB (shortness of breath) on exertion Shortness of breath Family history of LA (myocardial infarction) Family history of ischemic heart disease Mixed hyperlipidemia Acquired hypothyroidism Unspecified hypothyroidism documented in this encounter Additional Health Concerns Assessment Noted Time PHQ-9 Depression Total Score: 0 05/17/20 24 2:24 PM EST documented as of this encounter Care Teams Kettle Operator Relationship Specialty Start Date End Date Ej Ceron MD [address] [place] [address] PCP - General Internal Medicine 06/08/24 documented as of this encounter
--- OUTSIDE RECORDS SUMMARY | 2025-04-10 21:00 | XMS_ITS | Encounter Summary ---
Author Organization [employer] Address 75 [facility] 7t [place] [address] Care Team Providers Care Digital Computer Operator Name Role Phone Ej Ceron MD Primary Care Prov ider Reason for Visit * Reason Comments Med Refill Encounter Details Date Type Department Care Team ([facility] Contact Info) Description 10/12/2024 Refill [facility] MED & PEDS [address] [place], [place] [phone] Samra Bush MD [address] [place] [address] Social History Tobacco Use Types Packs/Day Years [...] - [facility] [address] [place] [address] Roz Christopher RN [address] [place] [address] 06/06/2025 9:30 AM EST Office Visit [facility] [address] [place] [address] Ej Ceron MD [address] [place] [address] documented as of this encounter Visit Diagnoses Not on filedocumented in this encounter Additional Health Concerns Assessment Noted Time PHQ-9 Depression Total Score: 0 05/17/20 2:24 PM EST documented as of this encounter Care Teams Digital Computer Operator Relationship Specialty Start Date End Date Ej Ceron MD [address] [place] [address] PCP - General Internal Medicine 06/08/24 documented as of this encounter
--- OUTSIDE RECORDS SUMMARY | 2025-04-10 21:00 | XMS_ITS | Encounter Summary ---
Author Organization [employer] Address 75 [facility] 7t [place] [address] Care Team Providers Care Underwear Trimmer Name Role Phone Ej Ceron MD Primary Care Prov ider Reason for Visit * Reason Comments Med Refill Encounter Details Date Type Department Care Team ([facility] Contact Info) Description 03/09/2025 Refill [facility] CH[facility] MED & PEDS [address] [place], [place] [phone] Ej Ceron MD [address] [place] [address] Social History Tobacco Use Types Packs/Day Years [...] Description 05/25/2025 11:00 AM EST Clinical Support [facility] MED & PEDS [address] [place] [address] Roz Christopher RN [address] [place] [address] 06/06/2025 9:30 AM EST Office Visit [facility] MED & PEDS [address] [place] [address] Ej Ceron MD [address] [place] [address] documented as of this encounter Visit Diagnoses Not on filedocumented in this encounter Additional Health Concerns Assessment Noted Time PHQ-9 Depression Total Score: 0 05/17/20 2:24 PM EST documented as of this encounter Care Teams Underwear Trimmer Relationship Specialty Start Date End Date Ej Ceron MD [address] [place] [address] PCP - General Internal Medicine 06/08/24 documented as of this encounter
--- OUTSIDE RECORDS SUMMARY | 2025-04-10 21:00 | XMS_ITS | Encounter Summary ---
Author Organization [employer] Address [address] [facility] [address] 7t [place] [address] Care Team Providers Care Newspaper Vendor Name Role Phone Ej Ceron MD Primary Care Prov ider Encounter Details Date Type Department Care Team (Latest Contact Info) Description 04/10/2025 Travel Social History Tobacco Use Types Packs/Day [...] Description 05/25/2025 11:00 AM EST Clinical Support [facility] MED & PEDS [address] [place] [address] Roz Christopher RN [address] [place] [address] 06/06/2025 9:30 AM EST Office Visit [facility] MED & PEDS [address] [place] [address] Ej Ceron MD [address] [place] [address] documented as of this encounter Visit Diagnoses Not on filedocumented in this encounter Additional Health Concerns Assessment Noted Time PHQ-9 Depression Total Score: 0 05/17/20 24 2:24 PM EST documented as of this encounter Care Teams Newspaper Vendor Relationship Specialty Start Date End Date Ej Ceron MD [address] [place] [address] PCP - General Internal Medicine 06/08/24 documented as of this encounter
--- OUTSIDE RECORDS SUMMARY | 2025-04-10 21:00 | XMS_ITS | Encounter Summary ---
Author Organization [employer] Address 75 [facility] 7t [place] [address] Care Team Providers Care Bioinformatics Scientist Name Role Phone Ej Ceron MD Primary Care Prov ider Reason for Visit * Reason Comments Med Refill Encounter Details Date Type Department Care Team ([facility] Contact Info) Description 11/27/2024 Refill [facility] CHC MED & PEDS [address] [place], [place] [phone] Ej Ceron MD [address] [place] [address] Social History Tobacco Use Types Packs/Day Years [...] Description 05/25/2025 11:00 AM EST Clinical Support [facility] MED & PEDS [address] [place] [address] Roz Christopher RN [address] [place] [address] 06/06/2025 9:30 AM EST Office Visit [facility] MED & PEDS [address] [place] [address] Ej Ceron MD [address] [place] [address] documented as of this encounter Visit Diagnoses Not on filedocumented in this encounter Additional Health Concerns Assessment Noted Time PHQ-9 Depression Total Score: 0 05/17/20 2:24 PM EST documented as of this encounter Care Teams Bioinformatics Scientist Relationship Specialty Start Date End Date Ej Ceron MD [address] [place] [address] PCP - General Internal Medicine 06/08/24 documented as of this encounter
--- OUTSIDE RECORDS SUMMARY | 2025-04-10 21:00 | XMS_ITS | Encounter Summary ---
Author Organization [employer] Address [address] [facility] 7t [place] [address] Care Team Providers Care Repairer Maintenance Building Name Role Phone Ej Ceron MD Primary Care Prov ider Reason for Visit * Reason Onset Date Comments Med Refill 09/08/2024 Encounter Details Date Type Department Care Team (Late st Contact Info) Description 09/08/2024 Telephone [facility] MEDICINE [address] [place] [address] Ej Ceron MD [address] [place] [address] [phone] Med Refill Social History Tobacco Use Types [...] MG tablet To be sent to: [facility]- [address] [place] [phone] documented in this encounter Plan of Treatment Upcoming Encounters Date Type Department Care Team (Late st Contact Info) Description 05/25/2025 11:00 AM EST Clinical Support [facility] MED & PEDS [address] [place] [address] Roz Christopher RN [address] [place] [address] 06/06/2025 9:30 AM EST Office Visit [facility] MED & PEDS [address] [place] [address] Ej Ceron MD [address] [place] [address] documented as of this encounter Visit Diagnoses Not on filedocumented in this encounter Additional Health Concerns Assessment Noted Time PHQ-9 Depression Total Score: 0 05/17/20 2:24 PM EST documented as of this encounter Care Teams Repairer Maintenance Building Relationship Specialty Start Date End Date Ej Ceron MD [address] [place] [address] PCP - General Internal Medicine 06/08/24 documented as of this encounter
--- OUTSIDE RECORDS SUMMARY | 2025-04-10 21:00 | XMS_ITS | Encounter Summary ---
Author Organization [employer] Address [address] [facility] 7t [place] [address] Care Team Providers Care Room Service Supervisor Name Role Phone Ej Ceron MD Primary Care Prov ider Reason for Visit * Reason Onset Date Comments Med Refill 09/08/2024 Encounter Details Date Type Department Care Team (Late st Contact Info) Description 09/08/2024 Telephone [facility] MEDICINE [address] [place] [address] Ej Ceron MD [address] [place] [address] [phone] Med Refill Social History Tobacco Use Types [...] 100 MG capsule To be sent to: [facility]- [address] [place] [phone] documented in this encounter Plan of Treatment Upcoming Encounters Date Type Department Care Team (Late st Contact Info) Description 05/25/2025 11:00 AM EST Clinical Support [facility] MED & PEDS [address] [place] [address] Roz Christopher RN [address] [place] [address] 06/06/2025 9:30 AM EST Office Visit [facility] MED & PEDS [address] [place] [address] Ej Ceron MD [address] [place] [address] documented as of this encounter Visit Diagnoses Not on filedocumented in this encounter Additional Health Concerns Assessment Noted Time PHQ-9 Depression Total Score: 0 05/17/20 2:24 PM EST documented as of this encounter Care Teams Room Service Supervisor Relationship Specialty Start Date End Date Ej Ceron MD [address] [place] [address] PCP - General Internal Medicine 06/08/24 documented as of this encounter
--- OUTSIDE RECORDS SUMMARY | 2025-04-10 21:00 | XMS_ITS | Encounter Summary ---
Author Organization [employer] Address [address] [facility] 7t [place] [address] Care Team Providers Care Safety Counselor Name Role Phone Ej Ceron MD Primary Care Prov ider Reason for Visit * Reason Onset Date Comments Med Refill 06/08/2024 Encounter Details Date Type Department Care Team (Late st Contact Info) Description 06/08/2024 Telephone [facility] MEDICINE [address] [place] [address] Ej Ceron MD [address] [place] [phone] Med Refill Social History Tobacco Use Types [...] tablets a Day. To be sent to: [id number] - [place], [place] - [address] [place] [address] AT SEC OF [facility] & [address] documented in this encounter Plan of Treatment Upcoming Encounters Date Type Department Care Team ([facility] st Contact Info) Description 05/25/2025 11:00 AM EST Clinical Support [facility] MED & PEDS [address] [place] [address] Roz Christopher RN [address] [place] [address] 06/06/2025 9:30 AM EST Office Visit [facility] MED & PEDS [address] [place] [address] Ej Ceron MD [address] [place] [address] documented as of this encounter Visit Diagnoses Not on filedocumented in this encounter Additional Health Concerns Assessment Noted Time PHQ-9 Depression Total Score: 0 05/17/20 2:24 PM EST documented as of this encounter Care Teams Safety Counselor Relationship Specialty Start Date End Date Ej Ceron MD [address] [place] [address] PCP - General Internal Medicine 06/08/24 documented as of this encounter
--- OUTSIDE RECORDS SUMMARY | 2025-04-10 21:00 | XMS_ITS | Encounter Summary ---
Author Organization [employer] Address [address] [facility] 7t [place] [address] Care Team Providers Care Armored Truck Driver Name Role Phone Ej Ceron MD Primary Care Prov ider Reason for Visit * Reason Onset Date Comments Nurse Triage 04/05/2025 Encounter Details Date Type Department Care Team (Late st Contact Info) Description 04/05/2025 Telephone [facility] MEDICINE [address] [place] [address] Ej Ceron MD [address] [place], [place] [phone] Nurse Triage Social History Tobacco Use Types Packs/Day Years [...] encounter Miscellaneous Notes * Telephone Encounter - Elizabeth Salas RN - 04/05/2025 2:51 PM EDT TC returned to patient [phone] in regards to below message. Patient reports for the last 4-5 days she has had increased urinary frequency, foul-smelling urine, burning on urination, increased back pain and difficulty sleeping thru the night without urinating. Patient reports she has never had a UTI in the past however feels this may be her first. Patient denies any fevers or abnormal discharge. Patient also reports for the last 2 weeks she has noticed SOB at times with exertion. Patient denies previous hx of COPD or asthma and reports she quit smoking 5 months ago. Patient could not accept an appt for today however accepted appt for tomorrow 04/06/25 at 2:45pm. Patient to f/u PRN. Multiple (2) protocols were used on this call. Disposition for Call: See in Office or Video Visit Today Protocol Used: Urination Pain - Female (Adult) Protocol-Based Disposition: See in Office or Video Visit Today Video visit not offered Positive Triage Questions: * Age > 50 years * Painful urination AND EITHER frequency or urgency * All higher-acuity triage questions were negative Protocol Used: Urinary Symptoms (Adult) Protocol-Based Disposition: See in Office or Video Visit Today Video visit not offered Positive Triage Questions: * Side (flank) or lower back pain present * Bad or foul-smelling urine * Urinating more frequently than usual (i.e., frequency) OR new-onset of the feeling of an urgent need to urinate (i.e., urgency) * Patient wants to be seen * Has to get out of bed to urinate > 2 times a night (i.e., nocturia) * All higher-acuity triage questions were negative * Telephone Encounter - Tejinder Hope - 04/05/2025 2:47 PM EDT Tc from pt returning call regarding message prior. * Telephone Encounter - Elizabeth Salas RN - 04/05/2025 1:56 PM EDT TC placed to patient [phone] in regards to below message. Patient did not answer, RN left VM requesting CB to triage nurses. TC placed to [phone] in regards to below message. Patient did not answer, RN left VM requesting CB to triage nurses. Patient to f/u PRN. * Telephone Encounter - Linh Smyth - 04/05/2025 12:26 PM EDT Symptom: Urine Symptoms Outcome: Schedule an urgent appointment (within 4 hours) or talk to a nurse or provider soon Reason: Pain when passing urine (peeing) The caller accepted this outcome. Contact pt at [phone] documented in this encounter Plan of Treatment Upcoming Encounters Date Type Department Care Team (Late st Contact Info) Description 05/25/2025 11:00 AM EST Clinical Support [facility] MED & PEDS [address] [place] [address] Roz Christopher, MARANDA [address] [place] [address] 06/06/2025 9:30 AM EST Office Visit [facility] MED & PEDS [address] [place] [address] Ej Ceron MD [address] [place] [address] documented as of this encounter Visit Diagnoses Not on filedocumented in this encounter Additional Health Concerns Assessment Noted Time PHQ-9 Depression Total Score: 0 05/17/20 24 2:24 PM EST documented as of this encounter Care Teams Armored Truck Driver Relationship Specialty Start Date End Date Ej Ceron MD [address] [place] [address] PCP - General Internal Medicine 06/08/24 documented as of this encounter
--- OUTSIDE RECORDS SUMMARY | 2025-04-10 21:00 | XMS_ITS | Clinical Summary ---
Author Organization [employer] Address [address] [facility] [address] 7t [place] [address] Care Team Providers Care Heater Operator Name Role Phone Ej Ceron MD Primary Care Prov ider Allergies Active Allergy Reactions Criticality Noted Date Comments Sulfamethoxazole-Trimethoprim Rash Low 2023 Morphine Nausea 05/17/2024 Sulfa Antibiotics Rash Low 10/14/2024 Medications aspirin 81 MG EC tablet Take 81 mg by mouth Once per day. Active alendronate (Fosamax) 70 MG tablet Take 70 mg by mouth every 7 (seven) days. Take in the morning with a full glass of water, on an empty stomach, and do not take anything else by mouth or lie down for the next 30 min. Active buPROPion (Zyban) 150 MG 12 hr tablet Take 1 tablet (150 mg) by mouth 2 times daily. Do not crush, chew, or split. 100 tablet 10/07/19 25 Active levothyroxine (Synthroid, Levoxyl) 88 MCG tablet Take 1 tablet (88 mcg) by mouth before breakfast. 90 tablet 2 10/07/19 25 Active Citrulline (Citrulline 1000) 1 g pack Take 1,000 mg by mouth Once per day. 90 each 10/07/19 25 Active atorvastatin (Lipitor) 80 MG tablet TAKE 1 TABLET BY MOUTH ONCE DAILY 100 tablet 2 12/15/19 25 Active naloxone (Narcan) 4 mg/0.1 mL nasal spray Administer 1 spray (4 mg) into affected nostril(s) if needed for opioid reversal. May repeat every 2-3 minutes if needed, alternating nostrils, until medical assistance becomes available. 2 each 2 12/23/19 25 026 Active omeprazole (PriLOSEC) [address] capsule TAKE 1 CAPSULE BY MOUTH BEFORE BREAKFAST. DO NOT CRUSH OR CHEW. 90 capsule 02/01/20 25 Active gabapentin (Neurontin) 100 MG capsule TAKE 2 CAPSULES BY MOUTH THREE TIMES DAILY 540 capsule 03/30/20 Active nitrofurantoi n, macrocrystal- monohydrate, (Macrobid) 100 MG capsule Take 1 capsule (100 mg) by mouth 2 times daily for 5 days. 10 capsule 04/10/20 25 025 Active albuterol 108 (90 Base) MCG/ACT inhaler Inhale 2 puffs every 4 (four) hours if needed for wheezing. 18 g 04/10/20 25 026 Active traMADol (Ultram) 50 MG tabletIndicat ions:Chronic left shoulder pain Take 1 tablet (50 mg) by mouth every 12 (twelve) hours if needed for severe pain for up to 28 days. 56 tablet 04/10/20 25 025 Active gabapentin (Neurontin) 100 MG capsule Take 2 capsules (200 mg) by mouth 3 times daily. 540 capsule 09/20/19 25 025 Discontinued(Re order (will not trigger notification to Pharmacy)) traMADol (Ultram) 50 MG tabletIndicat ions:Chronic left shoulder pain Take 1 tablet (50 mg) by mouth every 12 (twelve) hours if needed for severe pain for up to 28 days. 56 tablet 03/10/20 25 025 Discontinued(Re order (will not trigger notification to Pharmacy)) Active Problems Problem Noted Date Diagnosed Date Elevated blood pressure reading 11/11/2024 Assessment & Plan (11/11/2024 5:34 PM EDT): Encouraged to keep a low sodium diet and exercise as tolerated, will follow up on next appointment Varicose veins of bilateral lower extremities with other complications 11/11/2024 Assessment & Plan (11/11/2024 5:35 PM EDT): Will refer to vascular surgery for evaluation Long-term current use of opiate analgesic 2024 Acquired hypothyroidism 08/03/2024 Assessment & Plan (11/11/2024 5:33 PM EDT): On levothyroxine, will order new labs for guidance of therapy, Assessment & Plan (08/03/2024 9:59 AM EST): [...] resection 2003 due to diverticulitis, right shoulder 2008 All: morphine/bactrim Meds: as above A0 [id number] Had colonoscopy 7-8 years ago, will review gi consult Encounter for screening mamm ogram for malignant neoplasm of breast 07/08/2024 Assessment & Plan (07/08/2024 3:22 PM EST): Will order a breast mammogram Menopause 07/08/2024 Assessment & Plan (07/08/2024 3:23 PM EST): Will order a bone density scan Encounters Date Type Department Care Team Description 04/10/2025 1:40 PM EDT Office Visit [facility] [address] [place] [address] Dot Fisher MD Cystitis (Primary Dx); Smoker; SOB (shortness of breath) on exertion; Family history of [place] (myocardial infarction); Mixed hyperlipidemia; Acquired hypothyroidism 04/10/2025 Refill [facility] [address] [place] [address] Ej Ceron MD Chronic left shoulder pain 04/10/2025 Travel 04/06/2025 Telephone [facility] [address] [place] [address] Ej Ceron MD Appointment Request 04/05/2025 Telephone [facility] [address] [place] [address] Ej Ceron MD Nurse Triage 03/28/2025 Refill [facility] [address] [place] [address] Ej Ceron MD 03/10/2025 Refill [facility] [address] [place] [address] Ej Ceron MD Chronic left shoulder pain 03/09/2025 11:00 AM EDT Clinical Support [facility] [address] [place] [address] Roz Christopher RN Chronic midline low back pain without sciatica (Primary Dx) 03/09/2025 Travel 03/09/2025 Refill [facility] [address] [place] [address] Ej Ceron MD 03/02/2025 Travel 02/09/2025 Telephone [facility] [address] [place] [address] Ej Ceron MD Medication Question 02/09/2025 Refill [facility] [address] [place] [address] Ej Ceron MD Chronic left shoulder pain 01/31/2025 Refill [facility] [address] [place] [address] Ej Ceron MD 01/11/2025 Refill [facility] [address] [place] [address] Ej Ceron MD Chronic left shoulder pain from Last 3 Months Immunizations Immunization Administration Dates Next Due Influenza Injectable Quadriv [...] (179 lb) 04/10/2025 1:16 PM EDT Height 166.4 cm (5' 5.5 ) 10/14/2024 11:14 AM ED T Body Mass Index 29.33 10/14/2024 11:14 AM EDT Plan of Treatment Upcoming Encounters Date Type Department Care Team (Late st Contact Info) Description 05/25/2025 11:00 AM EST Clinical Support [facility] [address] [place] [address] Roz Christopher RN [address] [place] [address] 06/06/2025 9:30 AM EST Office Visit [facility] [address] [place] [address] Ej Ceron MD [address] [place] [address] Health Maintenance Due Date Last Done Comments CT Colonography 1957 Colonoscopy 1957 Colorectal Cancer Screening 1957 FIT DNA/Cologuard 1957 FIT 1957 FOBT 1957 Sigmoidoscopy 1957 Zoster Vaccines (2 of 2) 09/21/2023 07/27/2023, 06/22 COVID-19 Vaccine ( season) 2025 07/27/2023, 07/06/2023, 05/21/2022, Additional history exists Influenza Vaccine (#1) 2025 , 07/17/2023, 04/17/2022, Additional history exists Depression Screening 05/17/2025 05/17/2024, 05/17/20 SDOH Screening 05/17/2025 05/17/2024 Alcohol/Substance Use Screening 10/14/2025 10/14/2024 Tobacco Screening 04/10/2026 04/10/2025 Mammogram 08/02/2026 08/02/2024, 08/02/2024 DTaP/Tdap/Td Vaccines (2 - Td or Tdap) 12/18/2030 12/18/2020, 02/14/2010 Pneumococcal Vaccine: 50+ Years Completed 07/27/2023 RSV Patients and Patients Aged 60 years or older Completed 07/27/2023 Hepatitis C Screening Completed 09/05/2024 HIB Vaccines [...] DIPSTICK Routine 04/10/2025 1:42 PM EDT Cystitis POCT MARIZA-14 URINE DRUG SCREEN Routine 03/09/2025 11:11 AM EDT Chronic midline low back pain without sciatica HEPATITIS C AB W/REFL TO HCV RNA, QN, PCR Routine 09/05/2024 11:01 AM EDT Acquired hypothyroidism from Last 3 Months or Most Recently Relevant to Health Maintenance Results * (ABNORMAL) POCT Urinalysis (04/10/2025 1:42 [...] CARE TEST ENTER/EDIT ORDERABLES Final Result * POCT MARIZA-14 Urine Drug Screen (03/09/2025 11:11 AM EDT) THC Negative Negative Cocaine Screen, Urine Negative Negative Opiate Screen, Urine Negative Negative Methamphetamine Screen Urine Negative Negative Amphetamine Screen, Urine Negative Negative Benzodiazepines Screen, Urine Negative Negative Barbiturate Screen, Urine Negative Negative Methadone Screen, Urine Negative Negative Buprenophine Screen, Urine Negative Negative TCA, Urine Negative Negative MDMA Urine Negative Negative ng/mL Oxycodone Screen, Urine Negative Negative Phencyclidine (PCP), Urine Negative Negative Propoxyphene, Urine Negative Negative Fentanyl, Urine Negative Negative Urine Urine specimen obtained by clean catch procedure / Unknown 03/09/2025 11:11 AM EDT Narrative Roz Christopher RN - 03/09/2025 11:11 AM EDT . Internal Pass Control Lot# [id number] Exp: 04-21-26 us Ej Shen MD POINT OF CARE TEST ENTER/EDIT ORDERABLES Final Result * Hepatitis C Antibody with Reflex to HCV, RNA, Quantitative, Real-Time PCR (09/05/2024 11:01 AM EDT) Hepatitis C Antibody Nonreactive Nonreactive [facility] Comment:Antibodies to HCV no t detected; does not exclude early acuteHCV infection. Blood Venous blood specimen / Unknown 09/05/2024 11:01 AM EDT 09/05/2024 2:19 PM EDT us Ej Shen MD LAB BLOOD ORDERABL ES Final Result [facility] [address] [place] [address] [phone] from Last 3 Months or Most Recently Relevant to Health Maintenance Insurance [facility] MEDICARE REPLACEMENT Care Teams Heater Operator Relationship Specialty Start Date End Date Ej Ceron MD [address] [place] [id number] PCP - General Internal Medicine 06/08/24
--- OUTSIDE RECORDS SUMMARY | 2025-04-10 21:00 | XMS_ITS | Encounter Summary ---
Author Organization [employer] Address 75 [facility] 7t [place] [address] Care Team Providers Care Data Entry Coordinator Name Role Phone Ej Ceron MD Primary Care Prov ider Reason for Visit * Reason Onset Date Comments Med Refill 04/10/2025 Encounter Details Date Type Department Care Team (Late st Contact Info) Description 04/10/2025 Refill [facility] [address] [place], [place] [phone] Ej Ceron MD [address] [place] [address] Chronic left shoulder pain Social History Tobacco Use Types Packs/Day Years [...] encounter Miscellaneous Notes * Telephone Encounter - Eliel Smith - 04/10/2025 4:22 PM EDT TC from pt requesting medication refill. Medications needing refill : traMADol (Ultram) 50 MG tablet To be sent to: [id number] - [address] documented in this encounter Plan of Treatment Upcoming Encounters Date Type Department Care Team (Late st Contact Info) Description 05/25/2025 11:00 AM EST Clinical Support [facility] [address] [place] [address] Roz Christopher RN [address] [place] [address] 06/06/2025 9:30 AM EST Office Visit [facility] [address] [place] [address] Ej Ceron MD [address] [place] [address] documented as of this encounter Visit Diagnoses Diagnosis Chronic left shoulder pain Pain in joint, shoulder region documented in this encounter Additional Health Concerns Assessment Noted Time PHQ-9 Depression Total Score: 0 05/17/20 2:24 PM EST documented as of this encounter Care Teams Data Entry Coordinator Relationship Specialty Start Date End Date Ej Ceron MD [address] [place] [id number] PCP - General Internal Medicine 06/08/24 documented as of this encounter
--- OUTSIDE RECORDS SUMMARY | 2025-04-10 21:00 | XMS_ITS | Encounter Summary ---
Author Organization [employer] Address 75 [facility] 7t [place] [address] Care Team Providers Care Center Line Cutter Operator Name Role Phone Ej Ceron MD Primary Care Prov ider Reason for Visit * Reason Comments Med Refill Encounter Details Date Type Department Care Team ([facility] Contact Info) Description 12/07/2024 Refill [facility] [address] [place], [place] [phone] Samra Bush MD [address] [place] [address] Social History Tobacco Use Types Packs/Day Years [...] Description 05/25/2025 11:00 AM EST Clinical Support [facility] [address] [place] [address] Roz Christopher RN [address] [place] [address] 06/06/2025 9:30 AM EST Office Visit [facility] [address] [place] [address] Ej Ceron MD [address] [place] [address] documented as of this encounter Visit Diagnoses Not on filedocumented in this encounter Additional Health Concerns Assessment Noted Time PHQ-9 Depression Total Score: 0 05/17/20 2:24 PM EST documented as of this encounter Care Teams Center Line Cutter Operator Relationship Specialty Start Date End Date Ej Ceron MD [address] [place] [address] PCP - General Internal Medicine 06/08/24 documented as of this encounter
--- OUTSIDE RECORDS SUMMARY | 2025-04-10 21:00 | XMS_ITS | Encounter Summary ---
Author Organization [employer] Address [address] [facility] 7t [place] [address] Care Team Providers Care Fire And Explosion Investigator Name Role Phone Ej Ceron MD Primary Care Prov ider Reason for Visit * Reason Onset Date Comments Medication Question 02/09/2025 Encounter Details Date Type Department Care Team (Late st Contact Info) Description 02/09/2025 Telephone [facility] [address] [place] [address] Ej Ceron MD [address] [place], [place] [phone] Medication Question Social History Tobacco Use Types [...] encounter Miscellaneous Notes * Telephone Encounter - Liss Staples RN - 02/15/2025 10:11 AM EDT Patient stated she has been taking for long time, thought she had put it on her list of medicationswhen she first started seeing Ray. She stated she takes 1 pill at night to help her sleep because she gets severe leg cramps while sleeping. Will route to provider for review. * Telephone Encounter - Evaristo Cervantes - 02/09/2025 4:12 PM EDT TC from pt requesting Cyclobenzaprine 10mg prescribed in the past by old PCP at [facility] . Ptreports giving provider a list of meds she used to take . documented in this encounter Plan of Treatment Upcoming Encounters Date Type Department Care Team ([facility] st Contact Info) Description 05/25/2025 11:00 AM EST Clinical Support [facility] [address] [place] [address] Roz Christopher, RN [address] [place] [address] 06/06/2025 9:30 AM EST Office Visit [facility] [address] [place] [address] Ej Ceron MD [address] [place] [address] documented as of this encounter Visit Diagnoses Not on filedocumented in this encounter Additional Health Concerns Assessment Noted Time PHQ-9 Depression Total Score: 0 05/17/20 2:24 PM EST documented as of this encounter Care Teams Fire And Explosion Investigator Relationship Specialty Start Date End Date Ej Ceron MD [address] [place] [address] PCP - General Internal Medicine 06/08/24 documented as of this encounter
--- OUTSIDE RECORDS SUMMARY | 2025-04-10 21:00 | XMS_ITS | Encounter Summary ---
Author Organization [employer] Address 75 [facility] 7t [place] [address] Care Team Providers Care Shook Splicer Name Role Phone Ej Ceron MD Primary Care Prov ider Encounter Details Date Type Department Care Team (Late st Contact Info) Description 08/04/2024 Orders Only [facility] [address] [place], [place] [phone] ProviderCharlotte MD Social History Tobacco Use Types Packs/Day Years [...] Upcoming Encounters Date Type Department Care Team ([facility] st Contact Info) Description 05/25/2025 11:00 AM EST Clinical Support [facility] [address] [place] [address] Roz Christopher RN [address] [place] [address] 06/06/2025 9:30 AM EST Office Visit [facility] [address] [place] [address] Ej Ceron MD [address] [place] [address] documented as of this encounter Procedures Procedure [...] documented as of this encounter Care Teams Shook Splicer Relationship Specialty Start Date End Date Ej Ceron MD [address] [place] [address] PCP - General Internal Medicine 06/08/24 documented as of this encounter
--- OUTSIDE RECORDS SUMMARY | 2025-04-10 21:00 | XMS_ITS | Patient Health Record ---
Author Organization [facility] Address [address] [place] [address] Care Team Providers Care Seasonal Retail Merchandiser Name Role Phone Pablo Ruano DO Primary Care Provider Serenity Gomez Unavailable [phone] Allergies Allergen (clinical drug ingredient) Drug/Non Drug Allergy documented on EMR Reaction Allergy Type Onset Date Status sulfa rash Drug Allergy Active morphine Morphine very ill Drug Allergy Active Reason For Referral No Information Medications Medication SIG (Take, Route, Frequency, Duration) Notes Start Date End Date Status Simvastatin 20 MG 1 tablet in the even ing Orally Once a day Active Omeprazole 40 MG 1 capsule Orally Onc e a day Active Sertraline HCl 100 MG 1 tablet Orally On ce a day Active Cyclobenzaprine HCl 10 MG 1 tablet Orall y Three times a day Active Levothyroxine Sodium 150 MCG 1 tablet Or ally Once a day Active Nasonex 50 MCG/ACT 2 sprays in each nostril Nasally Once a day Active Diclofenac Sodium 75 MG 1 tablet Orally Once a day Active Plan Of Treatment No Information Insurance Providers Payer Name Payer Address Payer Phone Subscriber Number Group Number Insured Name Patient Relationship to Insured Coverage Start Date Coverage End Date [facility] [address] [place] [address] [id number] Tejal Steward Self - patient is the insured Medical (General) History Medical History History ICD Code osteoarthritis Back,Hip,and Knee pain Cholesterol Osteoporosis Thyroid disorder Measles Mumps Chicken pox Surgical History Surgery Date(Month/Year) bowel resection 10/2002 shoulder surgery 06/2008 bladder surgery 09/2015 leg surgery 02/2010 Hospitalization History Reason Date(Month/Year) [facility] Bladder surgery 09/2015 [facility] stepped on glass 09/2015
--- OUTSIDE RECORDS SUMMARY | 2025-04-10 21:00 | XMS_ITS | Encounter Summary ---
Author Organization [employer] Address 75 [facility] 7t [place] [address] Care Team Providers Care Hazardous Waste Remover Name Role Phone Ej Ceron MD Primary Care Prov ider Reason for Visit * Reason Onset Date Comments Appointment Request 04/06/2025 Encounter Details Date Type Department Care Team ([facility] st Contact Info) Description 04/06/2025 Telephone [facility] [address] [place], [place] [phone] Ej Ceron MD [address] [place] [address] Appointment Request Social History Tobacco Use Types Packs/Day Years Used Date Smoking Tobacco: Former Cigarettes 0.5 46 S tarted: 1975 Smokeless Tobacco: Never Alcohol Use Standard Drinks/Week [...] Telephone Encounter - Liss Staples RN - 04/06/2025 12:02 PM EDT My Chart message sent * Telephone Encounter - Renee Rivera - 04/06/2025 11:44 AM EDT Tc from pt requesting to reschedule sick onsite apt that was today as she can not make it due to work Contact pt at [phone] documented in this encounter Plan of Treatment Upcoming Encounters Date Type Department Care Team (Late st Contact Info) Description 05/25/2025 11:00 AM EST Clinical Support [facility] [address] [place] [address] Roz Christopher, MARANDA [address] [place] [address] 06/06/2025 9:30 AM EST Office Visit [facility] [address] [place] [address] Ej Ceron MD [address] [place] [address] documented as of this encounter Visit Diagnoses Not on filedocumented in this encounter Additional Health Concerns Assessment Noted Time PHQ-9 Depression Total Score: 0 05/17/20 24 2:24 PM EST documented as of this encounter Care Teams Hazardous Waste Remover Relationship Specialty Start Date End Date RayEj Wade MD [address] [place] [address] PCP - General Internal Medicine 06/08/24 documented as of this encounter
--- OUTSIDE RECORDS SUMMARY | 2025-04-10 21:00 | XMS_ITS | Encounter Summary ---
Author Organization [employer] Address 75 [facility] 7t [place] [address] Care Team Providers Care Deckhand Maintenance Name Role Phone Ej Ceron MD Primary Care Prov ider Reason for Visit * Reason Onset Date Comments Med Refill 10/11/2024 Encounter Details Date Type Department Care Team (Late st Contact Info) Description 10/11/2024 Telephone [facility] [address] [place] [address] Ej Ceron MD [address] [place] [phone] Med Refill Social History Tobacco Use Types [...] * Telephone Encounter - Prachi Crenshaw - 10/14/2024 11:57 AM EDT Tc from pt requesting med refill. - traMADol (Ultram) 50 MG tablet To be sent to: [id number] - [facility] * Telephone Encounter - Duke Kemp - 10/11/2024 11:06 AM EDT TC from pt requesting medication refill. Medications needing refill : traMADol (Ultram) 50 MG tablet [id number] documented in this encounter Plan of Treatment Upcoming Encounters Date Type Department Care Team ([facility] st Contact Info) Description 05/25/2025 11:00 AM EST Clinical Support [facility] 505 [facility] [place] [address] Roz Christopher, MARANDA 505 [facility] [place] [address] 06/06/2025 9:30 AM EST Office Visit [facility] [address] [place] [address] Ej Ceron MD [address] [place] [address] documented as of this encounter Visit Diagnoses Not on filedocumented in this encounter Additional Health Concerns Assessment Noted Time PHQ-9 Depression Total Score: 0 05/17/20 24 2:24 PM EST documented as of this encounter Care Teams Deckhand Maintenance Relationship Specialty Start Date End Date Ej Ceron MD [address] [place] [address] PCP - General Internal Medicine 06/08/24 documented as of this encounter
== END 2025-04-10 18:44 | disposition home or self-care (01) ==
LOC: HO.HHCLNP 18:43
PROVIDERS: Visit Provider Pediatrics
DX: N30.90 Cystitis, unspecified without hematuria (principal)
CPT/HCPCS: 87086; 87088; 87186

== ENCOUNTER 2025-04-17 09:16 | Outpatient (REF) | payer MEDICARE, SELFPAY ==
--- NOTE | ~2025-04-17 | US_ITS ---
CLINICAL HISTORY: N20.0 - Calculus of kidney US renal Comparison: 09/08/2024 Findings: Right kidney 9.6 cm length. Probable minimal subcapsular fluid. No other significant abnormality. Left kidney 9.5 cm length. No significant focal abnormality. No bilateral hydronephrosis. Normal bilateral renal echogenicity. Impression: Minimal right renal subcapsular fluid Otherwise unremarkable This document has been electronically signed by: Mikael Martino MD on 04/17/2025 22:46:37
--- OUTSIDE RECORDS SUMMARY | 2025-04-17 10:11 | XMS_ITS | Encounter Summary ---
Author Organization [employer] Address 75 [facility] 7t [place] [address] Care Team Providers Care Table Games Floor Supervisor Name Role Phone Ej Ceron MD Primary Care Prov ider Reason for Visit * Reason Comments Med Refill Encounter Details Date Type Department Care Team ([facility] Contact Info) Description 03/09/2025 Refill [facility] [address] [place], [place] [phone] Ej Ceron MD [address] [place] [address] Social History Tobacco Use Types Packs/Day Years [...] Support [facility] [address] [place] [address] Roz Christopher RN [address] [place] [address] 06/06/2025 9:30 AM EST Office Visit [facility] [address] [place] [address] Ej Ceron MD [address] [place] [address] documented as of this encounter Visit Diagnoses Not on filedocumented in this encounter Additional Health Concerns Assessment Noted Time PHQ-9 Depression Total Score: 0 05/17/20 2:24 PM EST documented as of this encounter Care Teams Table Games Floor Supervisor Relationship Specialty Start Date End Date Ej Ceron MD [address] [place] [address] PCP - General Internal Medicine 06/08/24 documented as of this encounter
--- OUTSIDE RECORDS SUMMARY | 2025-04-17 10:11 | XMS_ITS | Encounter Summary ---
Author Organization [employer] Address 75 [facility] 7t [place] [address] Care Team Providers Care Paraffin Plant Sweater Operator Name Role Phone Ej Ceron MD Primary Care Prov ider Reason for Visit * Reason Onset Date Comments Med Refill 09/08/2024 Encounter Details Date Type Department Care Team (Late st Contact Info) Description 09/08/2024 Telephone [facility] MEDICINE [address] [place] [address] Ej Ceron MD [address] [place] [address] [phone] Med Refill Social History Tobacco Use Types [...] 50 MG tablet To be sent to: [facility]- [address] [place] [id number] documented in this encounter Plan of Treatment Upcoming Encounters Date Type Department Care Team (Late st Contact Info) Description 05/25/2025 11:00 AM EST Clinical Support [facility] [address] [place] [address] Roz Christopher RN 505 [place] [address] 06/06/2025 9:30 AM EST Office Visit [facility] [address] [place] [address] Ej Ceron MD 505 [place] [address] documented as of this encounter Visit Diagnoses Not on filedocumented in this encounter Additional Health Concerns Assessment Noted Time PHQ-9 Depression Total Score: 0 05/17/20 2:24 PM EST documented as of this encounter Care Teams Paraffin Plant Sweater Operator Relationship Specialty Start Date End Date Ej Ceron MD [address] [place] [address] PCP - General Internal Medicine 06/08/24 documented as of this encounter
--- OUTSIDE RECORDS SUMMARY | 2025-04-17 10:11 | XMS_ITS | Encounter Summary ---
Author Organization [employer] Address 75 [facility] 7t [place] [address] Care Team Providers Care Copy Clerk Name Role Phone Ej Ceron MD Primary Care Prov ider Reason for Visit * Reason Onset Date Comments Med Refill 06/08/2024 Encounter Details Date Type Department Care Team (Late st Contact Info) Description 06/08/2024 Telephone [facility] MEDICINE [address] [place] [address] Ej Ceron MD [address] [place] [phone] Med Refill Social History Tobacco Use Types [...] tablets a Day. To be sent to: [id number] - [place], [place] - [address] [place] [address] AT SEC OF [facility] [address] [facility] documented in this encounter Plan of Treatment Upcoming Encounters Date Type Department Care Team ([facility] st Contact Info) Description 05/25/2025 11:00 AM EST Clinical Support [facility]ED[facility] [address] [place] [address] Roz Christopher RN 505 [place] [address] 06/06/2025 9:30 AM EST Office Visit [facility] [address] [place] [address] Ej Ceron MD 505 [place] [address] documented as of this encounter Visit Diagnoses Not on filedocumented in this encounter Additional Health Concerns Assessment Noted Time PHQ-9 Depression Total Score: 0 05/17/20 2:24 PM EST documented as of this encounter Care Teams Copy Clerk Relationship Specialty Start Date End Date Ej Ceron MD [address] [place] [address] PCP - General Internal Medicine 06/08/24 documented as of this encounter
--- OUTSIDE RECORDS SUMMARY | 2025-04-17 10:11 | XMS_ITS | Encounter Summary ---
Author Organization [employer] Address 75 [facility] 7t [place] [address] Care Team Providers Care Childcare Administrator Name Role Phone Ej Ceron MD Primary Care Prov ider Reason for Visit * Reason Onset Date Comments Med Refill 09/08/2024 Encounter Details Date Type Department Care Team (Late st Contact Info) Description 09/08/2024 Telephone [facility] MEDICINE [address] [place] [address] Ej Ceron MD [address] [place] [address] [phone] Med Refill Social History Tobacco Use Types [...] 100 MG capsule To be sent to: [facility]- [address] [place] [phone] documented in this encounter Plan of Treatment Upcoming Encounters Date Type Department Care Team (Late st Contact Info) Description 05/25/2025 11:00 AM EST Clinical Support [facility] PED[facility] [address] [place] [address] Roz Christopher RN 505 [place] [address] 06/06/2025 9:30 AM EST Office Visit [facility] [address] [place] [address] Ej Ceron MD 505 [place] [address] documented as of this encounter Visit Diagnoses Not on filedocumented in this encounter Additional Health Concerns Assessment Noted Time PHQ-9 Depression Total Score: 0 05/17/20 2:24 PM EST documented as of this encounter Care Teams Childcare Administrator Relationship Specialty Start Date End Date Ej Ceron MD [address] [place] [phone] PCP - General Internal Medicine 06/08/24 documented as of this encounter
--- OUTSIDE RECORDS SUMMARY | 2025-04-17 10:11 | XMS_ITS | Encounter Summary ---
Author Organization [employer] Address 75 [facility] 7t [place] [address] Care Team Providers Care Rehab Tech Name Role Phone Ej Ceron MD Primary Care Prov ider Reason for Visit * Reason Onset Date Comments Medication Question 02/09/2025 Encounter Details Date Type Department Care Team (Late st Contact Info) Description 02/09/2025 Telephone [facility] MEDICINE [address] [place] [address] Ej Ceron MD [address] [place], [place] [phone] Medication Question Social History Tobacco Use Types [...] in the past by old PCP at [facility] . Ptreports giving provider a list of meds she used to take . documented in this encounter Plan of Treatment Upcoming Encounters Date Type Department Care Team ([facility] st Contact Info) Description 05/25/2025 11:00 AM EST Clinical Support [facility] MED & PEDS [address] [place] [address] Roz Christopher, RN 505 [place] [address] 06/06/2025 9:30 AM EST Office Visit [facility]ED[facility] [address] [place] [address] Ej Ceron MD 505 [place] [address] documented as of this encounter Visit Diagnoses Not on filedocumented in this encounter Additional Health Concerns Assessment Noted Time PHQ-9 Depression Total Score: 0 05/17/20 2:24 PM EST documented as of this encounter Care Teams Rehab Tech Relationship Specialty Start Date End Date Ej Ceron MD 505 [place] [address] PCP - General Internal Medicine 06/08/24 documented as of this encounter
--- OUTSIDE RECORDS SUMMARY | 2025-04-17 10:11 | XMS_ITS | Clinical Summary ---
Author Organization [employer] Address [address] [facility] [address] 7t [place] [address] Care Team Providers Care Pot Reliner Name Role Phone Ej Ceron MD Primary [...] THREE TIMES DAILY 540 capsule 03/30/20 Active albuterol 108 (90 Base) MCG/ACT inhaler [...] order (will not trigger notification to Pharmacy)) nitrofurantoi n, macrocrystal- monohydrate, (Macrobid) 100 MG capsule Take 1 capsule (100 mg) by mouth 2 times daily for 5 days. 10 capsule 04/10/20 25 025 Active Problems Problem Noted Date Diagnosed Date [...] 2009 All: morphine/bactrim Meds: as above A0 [id number] Had colonoscopy 7-8 years ago, will review gi consult Encounter for screening mamm ogram for malignant neoplasm of breast 07/08/2024 Assessment & Plan (07/08/2024 3:22 PM EST): Will order a breast mammogram Menopause 07/08/2024 Assessment & Plan (07/08/2024 3:23 PM EST): Will order a bone density scan Encounters Date Type Department Care Team Description 04/10/2025 1:40 PM EDT Office Visit [facility] [address] [place] [address] Dot Fisher MD Cystitis (Primary Dx); Smoker; SOB (shortness of breath) on exertion; Family history of ME (myocardial infarction); Mixed hyperlipidemia; Acquired hypothyroidism 04/10/2025 Refill [facility] [address] [place] [address] Ej Ceron MD Chronic left shoulder pain 04/10/2025 Travel 04/06/2025 Telephone [facility] [address] [place] [address] Ej Ceron MD Appointment Request 04/05/2025 Telephone [facility] MEDICINE [address] [place] [address] Ej Ceron MD Nurse Triage 03/28/2025 Refill [facility] [address] [place] [address] Ej Ceron MD 03/10/2025 Refill [facility] [address] [place] [address] Ej Ceron MD Chronic left shoulder pain 03/09/2025 11:00 AM EDT Clinical Support [facility] [address] [place] [address] Roz Christopher RN Chronic midline low back pain without sciatica (Primary Dx) 03/09/2025 Travel 03/09/2025 Refill [facility] [address] [place] [address] Ej Ceron MD 03/02/2025 Travel 02/09/2025 Telephone [facility] MED[facility] [address] [place] [address] Ej Ceron MD Medication Question 02/09/2025 Refill [facility] [address] [place] [address] Ej Ceron MD Chronic left shoulder pain 01/31/2025 Refill [facility] [address] [place] [address] Ej Ceron MD from Last 3 Months Immunizations Immunization Administration [...] your housing situation today? I have wilfredo larry 05/17/[address] you li [...] Description 05/25/2025 11:00 AM EST Clinical Support [facility] [address] [place] [address] Roz Christopher RN 505 [place] [address] 06/06/2025 9:30 AM EST Office Visit [facility] [address] [place] [address] Ej Ceron MD 505 [place] [address] Health Maintenance Due Date Last Done Comments [...] DIPSTICK Routine 04/10/2025 1:42 PM EDT Cystitis CULTURE, URINE, ROUTINE Routine 04/10/2025 1:15 PM EDT Cystitis POCT MARIZA-14 URINE DRUG [...] CARE TEST ENTER/EDIT ORDERABLES Final Result * Culture, Urine, Routine (04/10/2025 1:15 PM EDT) Urine Urine specimen obtained by clean catch procedure / Unknown 04/10/2025 1:15 PM EDT 04/10/2025 6:40 PM EDT Comment:[facility] Narrative [facility] - 04/12/2025 7:54 AM EDT Escherichia coli Quant 10,000 to 50,000 cfu/mL Escherichia coli: Ampicillin 4(S) Escherichia coli: Cefazolin (Urine) <=1(S) Escherichia coli: Cefepime <=0.12(S) Escherichia coli: Ceftriaxone <=0.25(S) Escherichia coli: Ciprofloxacin <=0.06(S) Escherichia coli: Gentamicin <=1(S) Escherichia coli: Nitrofurantoin <=16(S) Escherichia coli: Trimethoprim/Sulfamethoxazole <=20(S) Specimen Source: Urine clean catch Dot Fisher MD LAB MICROBIOLOGY - GENERAL OR DERABLES Final Result Performing Organization Address City/[facility]/ZIP Co de Phone Number [facility] [address] [place] [address] [phone] * POCT MARIZA-14 Urine Drug Screen (03/09/2025 [...] AM EDT . Internal Pass Control Lot# [id number] Exp: 04-21-26 Ej Shen MD POINT OF CARE TEST ENTER/EDIT ORDERABLES Final Result * Hepatitis C Antibody with Reflex to HCV, RNA, Quantitative, Real-Time PCR (09/05/2024 11:01 AM EDT) Pathologist [facility] Hepatitis C Antibody Nonreactive Nonreactive [facility] Comment:Antibodies to HCV no t detected; does not exclude early acuteHCV infection. Blood Venous blood specimen / Unknown 09/05/2024 11:01 AM EDT 09/05/2024 2:19 PM EDT Ej Shen MD LAB BLOOD ORDERABL ES Final Result Performing Organization Address [facility]/ZIP Co de Phone Number [facility] [address] [place] [address] [phone] from Last 3 Months or Most Recently Relevant to Health Maintenance Insurance [facility] MEDICARE REPLACEMENT Care Teams Pot Reliner Relationship Specialty Start Date End Date Ej Ceron MD [address] [place] [phone] PCP - General Internal Medicine 06/08/24
--- OUTSIDE RECORDS SUMMARY | 2025-04-17 10:12 | XMS_ITS | Encounter Summary ---
Author Organization [employer] Address 75 [facility] 7t [place] [address] Care Team Providers Care Cherry Pitter Name Role Phone Ej Ceron MD Primary Care Prov ider Reason for Visit * Reason Onset Date Comments Med Refill 10/11/2024 Encounter Details Date Type Department Care Team (Late st Contact Info) Description 10/11/2024 Telephone [facility] MEDICINE [address] [place] [address] Ej Ceron MD [address] [place] [address] [phone] Med Refill Social History Tobacco Use Types [...] 50 MG tablet To be sent to: [id number] - [address] * Telephone Encounter - Duke Kemp - 10/11/2024 11:06 AM EDT TC from pt requesting medication refill. Medications needing refill : traMADol (Ultram) 50 MG tablet To be sent [facility]: [id number] [address] [facility] documented in this encounter Plan of Treatment Upcoming Encounters Date Type Department Care Team ([facility] st Contact Info) Description 05/25/2025 11:00 AM EST Clinical Support [facility] 505 [facility] [place] [address] Roz Christopher, MARANDA 505 [facility] [place] [address] 06/06/2025 9:30 AM EST Office Visit [facility] [address] [place] [address] Ej Ceron MD 505 [place] [address] documented as of this encounter Visit Diagnoses Not on filedocumented in this encounter Additional Health Concerns Assessment Noted Time PHQ-9 Depression Total Score: 0 05/17/20 24 2:24 PM EST documented as of this encounter Care Teams Cherry Pitter Relationship Specialty Start Date End Date Ej Ceron MD 505 [place] [address] PCP - General Internal Medicine 06/08/24 documented as of this encounter
--- OUTSIDE RECORDS SUMMARY | 2025-04-17 10:12 | XMS_ITS | Patient Health Record ---
Author Organization [facility] Address [address] [place] [address] Care Team Providers Care Contour Path Tape Mill Operator Name Role Phone Pablo Ruano DO Primary Care Provider Serenity Gomez Unavailable [phone] Allergies Allergen (clinical drug ingredient) Drug/Non Drug [...] Insured Coverage Start Date Coverage End Date [facility] [address] [place] [address] [id number] Tejal Steward Self - patient is the [...]
--- OUTSIDE RECORDS SUMMARY | 2025-04-17 10:12 | XMS_ITS | Encounter Summary ---
Author Organization [employer] Address 75 [facility] 7t [place] [address] Care Team Providers Care Gasoline Truck Operator Name Role Phone Ej Ceron MD Primary Care Prov ider Reason for Visit * Reason Comments Med Refill Encounter Details Date Type Department Care Team ([facility] Contact Info) Description 10/12/2024 Refill [facility] [address] [place], [place] [phone] Samra Bush MD 505 [place] [address] Social History Tobacco Use Types Packs/Day Years [...] [facility] [address] [place] [address] Roz Christopher RN 505 [place] [address] 06/06/2025 9:30 AM EST Office Visit [facility] PEDS [address] [place] [address] Ej Ceron MD 505 [place] [address] documented as of this encounter Visit Diagnoses Not on filedocumented in this encounter Additional Health Concerns Assessment Noted Time PHQ-9 Depression Total Score: 0 05/17/20 2:24 PM EST documented as of this encounter Care Teams Gasoline Truck Operator Relationship Specialty Start Date End Date Ej Ceron MD [address] [place] [address] PCP - General Internal Medicine 06/08/24 documented as of this encounter
--- OUTSIDE RECORDS SUMMARY | 2025-04-17 10:12 | XMS_ITS | Encounter Summary ---
Author Organization [employer] Address 75 [facility] 7t [place] [address] Care Team Providers Care Accounting Associate Name Role Phone Ej Ceron MD Primary Care Prov ider Reason for Visit * Reason Comments Med Refill Encounter Details Date Type Department Care Team ([facility] Contact Info) Description 12/07/2024 Refill [facility] [address] [place], [place] [phone] Samra Bush MD [address] [place] [address] Social History Tobacco Use Types Packs/Day Years [...] 05/25/2025 11:00 AM EST Clinical Support [facility] [address] [place] [address] Roz Christopher RN 505 [place] [address] 06/06/2025 9:30 AM EST Office Visit [facility] [address] [place] [address] Ej Ceron MD 505 [place] [address] documented as of this encounter Visit Diagnoses Not on filedocumented in this encounter Additional Health Concerns Assessment Noted Time PHQ-9 Depression Total Score: 0 05/17/20 2:24 PM EST documented as of this encounter Care Teams Accounting Associate Relationship Specialty Start Date End Date Ej Ceron MD [address] [place] [address] PCP - General Internal Medicine 06/08/24 documented as of this encounter
--- OUTSIDE RECORDS SUMMARY | 2025-04-17 10:12 | XMS_ITS | Encounter Summary ---
Author Organization [employer] Address 75 [facility] 7t [place] [address] Care Team Providers Care Service Correspondent Name Role Phone Ej Ceron MD Primary Care Prov ider Encounter Details Date Type Department Care Team (Late st Contact Info) Description 08/04/2024 Orders Only [facility] [address] [place], [place] [phone] ProviderCharlotte MD Social History Tobacco Use Types [...] Upcoming Encounters Date Type Department Care Team ([facility] st Contact Info) Description 05/25/2025 11:00 AM EST Clinical Support [facility] [address] [place] [address] Roz Christopher RN 505 [place] [address] 06/06/2025 9:30 AM EST Office Visit [facility] [address] [place] [address] Ej Ceron MD 505 [place] [address] documented as of this encounter Procedures Procedure [...] documented as of this encounter Care Teams Service Correspondent Relationship Specialty Start Date End Date Ej Ceron MD [address] [place] [address] PCP - General Internal Medicine 06/08/24 documented as of this encounter
--- OUTSIDE RECORDS SUMMARY | 2025-04-17 10:12 | XMS_ITS | Encounter Summary ---
Author Organization [employer] Address 75 [facility] 7t [place] [address] Care Team Providers Care Book Coverer Name Role Phone Ej Ceron MD Primary Care Prov ider Reason for Visit * Reason Comments Med Refill Encounter Details Date Type Department Care Team ([facility] Contact Info) Description 11/27/2024 Refill [facility]EDS [address] [place], [place] [phone] Ej Ceron MD [address] [place] [address] Social History Tobacco Use Types Packs/Day Years [...] [facility] [address] [place] [address] Roz Christopher RN 505 [place] [address] 06/06/2025 9:30 AM EST Office Visit [facility] [address] [place] [address] Ej Ceron MD 505 [place] [address] documented as of this encounter Visit Diagnoses Not on filedocumented in this encounter Additional Health Concerns Assessment Noted Time PHQ-9 Depression Total Score: 0 05/17/20 2:24 PM EST documented as of this encounter Care Teams Book Coverer Relationship Specialty Start Date End Date Ej Ceron MD [address] [place] [address] PCP - General Internal Medicine 06/08/24 documented as of this encounter
== END 2025-04-17 09:17 | disposition home or self-care (01) ==
LOC: HO.US 09:16
PROVIDERS: Visit Provider Nurse Practitioner Family
DX: N20.0 Calculus of kidney (principal)
CPT/HCPCS: 76775

== ENCOUNTER → 2025-04-17 09:21 | Outpatient (BNV) | payer MEDICARE, SELFPAY | PROVIDERS: Visit Provider Radiology Diagnostic Radiology | DX: N20.0 Calculus of kidney (principal) | CPT/HCPCS: 76775 ==

== ENCOUNTER 2025-04-20 11:10 | Outpatient (AMB) | payer MEDICARE, SELFPAY ==
--- NOTE | 2025-04-20 11:15 | MHC.OFFVIS ---
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 Right leg worse than left. Has been ongoing for around 20 years. Has numbness in both and toes. Patient experiences cramping as well. Accompanied by: Self / Same As Patient Allergies Sulfa (Sulfonamide Antibiotics) Allergy (Unknown, Verified 04/20/25 11:19) Unknown HPI HPI TRANSPORT TANK TECHNICIAN/HHC referral for VV: Details: The patient is a 70-year-old female presenting with concerns regarding worsening circulation in the legs and numbness in the lower extremities. She reports a history of a significant leg injury that required surgical intervention, resulting in the removal of a large portion of her leg. Since the surgery, she has experienced compromised circulation, which has progressively worsened. Approximately four months ago, the patient quit smoking after a long history of smoking since her 20s, with a previous consumption of about half a pack per day. She denies any history of diabetes but reports experiencing dyspnea on exertion, which limits her walking distance. The patient is currently on a low-dose aspirin and a cholesterol-lowering medication, with her cholesterol levels reportedly well-controlled. 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 [employer] Review of Systems Const All systems reviewed & are unremarkable except as noted in HPI and below Reports no additional complaints ENT Reports Normal hearing present Card Denies chest pain, Denies chest pain at rest, Denies chest pain with activity and Denies pedal edema Resp Denies cough GI Denies abdominal pain Musc Denies abnormal gait, Denies muscle cramps and Denies radiating pain into limb Skin/Breast Denies skin ulcer and Denies wounds Neuro Reports Normal hearing present and Denies abnormal gait Psych Reports no additional complaints Physical Exam Const General: cooperative, healthy appearing and comfortable Orientation/consciousness: oriented to person, oriented to place and oriented to time HEENT Head: Yes normal to inspection Neck Neck: Yes normal visual inspection Carotids: no bruits Chest Chest palpation & inspection: normal inspection of the chest Resp Effort & Inspection: normal respiratory effort and able to speak in complete sentences Auscultation: clear to auscultation bilaterally, no crackles, no rales, no rhonchi and no wheezes Cardio Other: Bilateral DP signals Rate: regular rate Rhythm: regular rhythm Heart sounds: S1 normal heart sound present and S2 normal heart sound present Bruits: no carotid bruits Peripheral pulses: Peripheral pulses 2+ throughout GI Inspection: Yes normal to inspection Skin Wounds: no wounds Hair: normal Neuro General: oriented to person, oriented to place and oriented to time Cranial nerves: Yes CN's II-XII intact bilaterally and Yes Normal hearing present Cognition (Neuro): normal cognition Motor exam (neuro): 5/5 motor strength present throughout Extrem Other: venous exam: +1 edema General: No clubbing, No cyanosis and No edema Psych Appearance: grossly normal Mental Status: mental status grossly normal Speech and movement: Normal speech and movement present Assessment & Plan Assessment & Plan (1) PAD (peripheral artery disease): Code(s): I73.9 - Peripheral vascular disease, unspecified Category: Medical Plan: In short patient may have an element of peripheral vascular disease.I discussed with the patient the likelihood of peripheral artery disease due to her symptoms and history of smoking. We talked about the importance of assessing her arterial circulation through an ultrasound and the potential for minimally invasive interventions such as ballooning or stenting if necessary. I emphasized the role of smoking cessation in managing her condition and maintaining her current medication regimen. She will follow up with us after testing. Thank you for allowing us to assist in her care. If there are any questions or concerns please do not hesitate to contact us. Orders: Orders US arterial duplex LE BI Today I73.9 - Peripheral vascular disease, unspecified Coding Level of Care Code New Pt Level 4 (43480) Complex EM visit Add On G2211 Diagnoses PAD (peripheral artery disease) I73.9
--- OUTSIDE RECORDS SUMMARY | 2025-04-20 14:00 | XMS_ITS | Encounter Summary ---
Author Organization [employer] Address [address] [facility] 7t [place] [address] Care Team Providers Care Phlebotomist Associate Name Role Phone Ej Ceron MD Primary Care Prov ider Reason for Visit * Reason Onset Date Comments Med Refill 09/08/2024 Encounter Details Date Type Department Care Team (Late st Contact Info) Description 09/08/2024 Telephone [facility] [address] [place] [address] Ej Ceron MD [address] [place] [address] [phone] Med Refill Social History Tobacco Use Types [...] 50 MG tablet To be sent to: [facility]- [address] [place] [phone] documented in this encounter Plan of Treatment Upcoming Encounters Date Type Department Care Team (Late st Contact Info) Description 05/25/2025 11:00 AM EST Clinical Support [facility] 505 [place] [address] Roz Christopher RN 505 [place] [address] 06/06/2025 9:30 AM EST Office Visit [facility] 505 [place] [address] Ej Ceron MD 505 [place] [address] documented as of this encounter Visit Diagnoses Not on filedocumented in this encounter Additional Health Concerns Assessment Noted Time PHQ-9 Depression Total Score: 0 05/17/20 2:24 PM EST documented as of this encounter Care Teams Phlebotomist Associate Relationship Specialty Start Date End Date Ej Ceron MD [address] [place] [id number] PCP - General Internal Medicine 06/08/24 documented as of this encounter
--- OUTSIDE RECORDS SUMMARY | 2025-04-20 14:00 | XMS_ITS | Encounter Summary ---
Author Organization [employer] Address [address] [facility] 7t [place] [address] Care Team Providers Care Flexographic Printing Press Operator Name Role Phone Ej Ceron MD Primary Care Prov ider Reason for Visit * Reason Onset Date Comments Medication Question 02/09/2025 Encounter Details Date Type Department Care Team (Late st Contact Info) Description 02/09/[address] [facility]INE 230 [place] [address] Ej Ceron MD 505 [place], [place] [phone] Medication Question Social History Tobacco Use Types [...] in the past by old PCP at [facility] . Ptreports giving provider a list of meds she used to take . documented in this encounter Plan of Treatment Upcoming Encounters Date Type Department Care Team ([facility] st Contact Info) Description 05/25/2025 11:00 AM EST Clinical Support [facility] [address] [place] [address] Roz Christopher, RN 505 [place] [address] 06/06/2025 9:30 AM EST Office Visit [facility] [address] [place] [address] Ej Ceron MD 505 [place] [address] documented as of this encounter Visit Diagnoses Not on filedocumented in this encounter Additional Health Concerns Assessment Noted Time PHQ-9 Depression Total Score: 0 05/17/20 2:24 PM EST documented as of this encounter Care Teams Flexographic Printing Press Operator Relationship Specialty Start Date End Date Ej Ceron MD 505 [place] [address] PCP - General Internal Medicine 06/08/24 documented as of this encounter
--- OUTSIDE RECORDS SUMMARY | 2025-04-20 14:00 | XMS_ITS | Encounter Summary ---
Author Organization [employer] Address [address] [facility] 7t [place] [address] Care Team Providers Care Staple Shear Operator Name Role Phone Ej Ceron MD Primary Care Prov ider Reason for Visit * Reason Onset Date Comments Med Refill 09/08/2024 Encounter Details Date Type Department Care Team (Late st Contact Info) Description 09/08/2024 Telephone [facility]INE 230 [place] [address] Ej Ceron MD [address] [place] [address] [phone] Med Refill Social History Tobacco Use Types [...] to: [facility]- [address] [place] [phone] documented in this encounter Plan of Treatment Upcoming Encounters Date Type Department Care Team (Late st Contact Info) Description 05/25/2025 11:00 AM EST Clinical Support [facility] 505 [place] [address] Roz Christopher RN 505 [place] [address] 06/06/2025 9:30 AM EST Office Visit [facility] [address] [place] [address] Ej Ceron MD 505 [place] [address] documented as of this encounter Visit Diagnoses Not on filedocumented in this encounter Additional Health Concerns Assessment Noted Time PHQ-9 Depression Total Score: 0 05/17/20 2:24 PM EST documented as of this encounter Care Teams Staple Shear Operator Relationship Specialty Start Date End Date Ej Ceron MD [address] [place] [phone] PCP - General Internal Medicine 06/08/24 documented as of this encounter
--- OUTSIDE RECORDS SUMMARY | 2025-04-20 14:00 | XMS_ITS | Encounter Summary ---
Author Organization [employer] Address [address] [facility] 7t [place] [address] Care Team Providers Care Fast Food Crew Lead Name Role Phone Ej Ceron MD Primary Care Prov ider Reason for Visit * Reason Onset Date Comments Med Refill 10/11/2024 Encounter Details Date Type Department Care Team (Late st Contact Info) Description 10/11/2024 Telephone [facility] [address] [place] [address] Ej Ceron MD [address] [place] [address] [phone] Med Refill Social History Tobacco Use Types [...] 50 MG tablet To be sent to: [id number] - [address] * Telephone Encounter - Duke Kemp - 10/11/2024 11:06 AM EDT TC from pt requesting medication refill. Medications needing refill : traMADol (Ultram) 50 MG tablet [id number] documented in this encounter Plan of Treatment Upcoming Encounters Date Type Department Care Team ([facility] st Contact Info) Description 05/25/2025 11:00 AM EST Clinical Support [facility] [address] [place] [address] Roz Christopher, MARANDA [address] [facility] [place] [address] 06/06/2025 9:30 AM EST Office Visit [facility] 505 [place] [address] Ej Ceron MD 505 [place] [address] documented as of this encounter Visit Diagnoses Not on filedocumented in this encounter Additional Health Concerns Assessment Noted Time PHQ-9 Depression Total Score: 0 05/17/20 24 2:24 PM EST documented as of this encounter Care Teams Fast Food Crew Lead Relationship Specialty Start Date End Date Ej Ceron MD 505 [place] [address] PCP - General Internal Medicine 06/08/24 documented as of this encounter
--- OUTSIDE RECORDS SUMMARY | 2025-04-20 14:00 | XMS_ITS | Encounter Summary ---
Author Organization [employer] Address [address] [facility] 7t [place] [address] Care Team Providers Care Management Development Specialist Name Role Phone Ej Ceron MD Primary Care Prov ider Reason for Visit * Reason Comments Med Refill Encounter Details Date Type Department Care Team ([facility] Contact Info) Description 12/07/2024 Refill [facility]EDS 505 [place], [place] [phone] Samra Bush MD 505 [place] [address] Social History Tobacco Use Types Packs/Day Years [facility] [address] [place] [address] Roz Christopher RN 505 [place] [address] 06/06/2025 9:30 AM EST Office Visit [facility]ED[facility] [address] [place] [address] Ej Ceron MD 505 [place] [address] documented as of this encounter Visit Diagnoses Not on filedocumented in this encounter Additional Health Concerns Assessment Noted Time PHQ-9 Depression Total Score: 0 05/17/20 2:24 PM EST documented as of this encounter Care Teams Management Development Specialist Relationship Specialty Start Date End Date Ej Ceron MD 505 [place] [address] PCP - General Internal Medicine 06/08/24 documented as of this encounter
--- OUTSIDE RECORDS SUMMARY | 2025-04-20 14:00 | XMS_ITS | Encounter Summary ---
Author Organization [employer] Address [address] [facility] 7t [place] [address] Care Team Providers Care Senior Payroll Administrator Name Role Phone Ej Ceron MD Primary Care Prov ider Reason for Visit * Reason Comments Med Refill Encounter Details Date Type Department Care Team ([facility] Contact Info) Description 03/09/2025 Refill [facility] 505 [place], [place] [phone] Ej Ceron MD 505 [place] [address] Social History Tobacco Use Types Packs/Day Years [...] 11:00 AM EST Clinical Support [facility] 505 [place] [address] Roz Christopher RN 505 [place] [address] 06/06/2025 9:30 AM EST Office Visit [facility] 505 [place] [address] Ej Ceron MD 505 [place] [address] documented as of this encounter Visit Diagnoses Not on filedocumented in this encounter Additional Health Concerns Assessment Noted Time PHQ-9 Depression Total Score: 0 05/17/20 2:24 PM EST documented as of this encounter Care Teams Senior Payroll Administrator Relationship Specialty Start Date End Date Ej Ceron MD 505 [place] [address] PCP - General Internal Medicine 06/08/24 documented as of this encounter
--- OUTSIDE RECORDS SUMMARY | 2025-04-20 14:00 | XMS_ITS | Encounter Summary ---
Author Organization [employer] Address [address] [facility] 7t [place] [address] Care Team Providers Care Sample Finisher Name Role Phone Ej Ceron MD Primary Care Prov ider Reason for Visit * Reason Onset Date Comments Med Refill 04/18/2025 Encounter Details Date Type Department Care Team (Late st Contact Info) Description 04/18/2025 Refill [facility]EDS 505 [place], [place] [phone] Ej Ceron MD 505 [place] [address] Social History Tobacco Use Types Packs/Day Years [...] encounter Miscellaneous Notes * Telephone Encounter - Claudette Solorzano LPN - 04/18/2025 1:41 PM EDT Last seen 04/10/25. * Telephone Encounter - Renee Rivera - 04/18/2025 1:37 PM EDT TC from pt requesting medication refill. Medications needing refill : levothyroxine (Synthroid, Levoxyl) 88 MCG tablet atorvastatin (Lipitor) 80 MG tablet To be sent to: [facility] #[id number] - [address] documented in this encounter Plan of Treatment Upcoming Encounters Date Type Department Care Team (Late st Contact Info) Description 05/25/2025 11:00 AM EST Clinical Support [facility] 505 [place] [address] Roz Christopher, MARANDA 505 [place] [address] 06/06/2025 9:30 AM EST Office Visit [facility] 505 [place] [address] Ej Ceron MD 505 [place] [address] documented as of this encounter Visit Diagnoses Not on filedocumented in this encounter Additional Health Concerns Assessment Noted Time PHQ-9 Depression Total Score: 0 05/17/20 24 2:24 PM EST documented as of this encounter Care Teams Sample Finisher Relationship Specialty Start Date End Date Ej Ceron MD 505 [place] [address] PCP - General Internal Medicine 06/08/24 documented as of this encounter
--- OUTSIDE RECORDS SUMMARY | 2025-04-20 14:00 | XMS_ITS | Encounter Summary ---
Author Organization [employer] Address [address] [facility] 7t [place] [address] Care Team Providers Care Cable Placer Name Role Phone Ej Ceron MD Primary Care Prov ider Encounter Details Date Type Department Care Team (Late st Contact Info) Description 08/04/2024 Orders Only [facility] [address] [place], [place] [phone] ProviderCharlotte MD Social History Tobacco Use Types [...] [facility] 505 [place] [address] Roz Christopher RN 505 [place] [address] 06/06/2025 9:30 AM EST Office Visit [facility] 505 [place] [address] Ej Ceron MD 505 [place] [address] documented as of this encounter Procedures Procedure [...] documented as of this encounter Care Teams Cable Placer Relationship Specialty Start Date End Date Ej Ceron MD 505 [place] [address] PCP - General Internal Medicine 06/08/24 documented as of this encounter
--- OUTSIDE RECORDS SUMMARY | 2025-04-20 14:00 | XMS_ITS | Clinical Summary ---
Author Organization [employer] Address [address] [facility] [address] 7[address] [place] [address] Care Team Providers Care Deputy Chief Sheriff Name Role Phone Ej Ceron MD Primary [...] or split. 100 tablet 10/07/19 25 Active Citrulline (Citrulline 1000) 1 g pack Take 1,000 mg by mouth Once per day. 90 each 10/07/19 25 Active naloxone (Narcan) 4 mg/0.1 mL [...] MOUTH THREE TIMES DAILY 540 capsule 03/30/20 25 Active albuterol 108 (90 Base) MCG/ACT inhaler Inhale 2 puffs every 4 (four) hours if needed for wheezing. 18 g 04/10/20 25 026 Active traMADol (Ultram) 50 MG tabletIndicat ions:Chronic left shoulder pain Take 1 tablet (50 mg) by mouth every 12 (twelve) hours if needed for severe pain for up to 28 days. 56 tablet 04/10/20 25 025 Active atorvastatin (Lipitor) 80 MG tablet TAKE 1 TABLET BY MOUTH EVERY DAY 90 tablet 1 04/19/20 Active levothyroxine (Synthroid, Levoxyl) 88 MCG tablet TAKE 1 TABLET BY MOUTH BEFORE BREAKFAST 90 tablet 1 04/19/20 Active gabapentin (Neurontin) 100 MG capsule Take 2 capsules (200 mg) by mouth 3 times daily. 540 capsule 09/20/19 25 025 Discontinued(Re order (will not trigger notification to Pharmacy)) levothyroxine (Synthroid, Levoxyl) 88 MCG tablet Take 1 tablet (88 mcg) by mouth before breakfast. 90 tablet 2 10/07/19 25 025 Discontinued(Re order (will not trigger notification to Pharmacy)) atorvastatin (Lipitor) 80 MG tablet TAKE 1 TABLET BY MOUTH ONCE DAILY 100 tablet 2 12/15/19 25 025 Discontinued(Re order (will not trigger [...] 2009 All: morphine/bactrim Meds: as above A0 [id number] Had colonoscopy 7-8 years ago, will review gi consult Encounter for screening mamm ogram for malignant neoplasm of breast 07/08/2024 Assessment & Plan (07/08/2024 3:22 PM EST): Will order a breast mammogram Menopause 07/08/2024 Assessment & Plan (07/08/2024 3:23 PM EST): Will order a bone density scan Encounters Date Type Department Care Team Description 04/18/2025 Refill [facility] [address] [place] [address] Ej Ceron MD 04/10/2025 1:40 PM EDT Office Visit [facility] [address] [place] [address] Dot Fisher MD Cystitis (Primary Dx); Smoker; SOB (shortness of breath) on exertion; Family history of ME (myocardial infarction); Mixed hyperlipidemia; Acquired hypothyroidism 04/10/2025 Refill [facility] [address] [place] [address] Ej Ceron MD Chronic left shoulder pain 04/10/2025 Travel 04/06/2025 Telephone [facility] [address] [place] [address] Ej Ceron MD Appointment Request 04/05/2025 Telephone [facility] [address] [place] [address] Ej Ceron MD Nurse Triage 03/28/2025 Refill [facility] [address] [place] [address] Ej Ceron MD 03/10/2025 Refill [facility] [address] [place] [address] Ej Ceron MD Chronic left shoulder pain 03/09/2025 11:00 AM EDT Clinical Support [facility] [address] [place] [address] Roz Christopher RN Chronic midline low back pain without sciatica (Primary Dx) 03/09/2025 Travel 03/09/2025 Refill [facility] [address] [place] [address] Ej Ceron MD 03/02/2025 Travel 02/09/2025 Telephone [facility] [address] [place] [address] Ej Ceron MD Medication Question 02/09/2025 Refill [facility] [address] [place] [address] Ej Ceron MD Chronic left shoulder pain 01/31/2025 Refill [facility]S [address] [place] [address] Ej Ceron MD from Last 3 Months [...] [facility] [address] [place] [address] Roz Christopher RN 505 [place] [address] 06/06/2025 9:30 AM EST Office Visit [facility] [address] [place] [address] Ej Ceron MD 505 [place] [address] Health Maintenance Due Date Last Done Comments [...] Urine (Urine, Random) 04/10/2025 1:42 PM EDT us Dot Fisher MD POINT OF CARE TEST ENTER/EDIT ORDERABLES Final Result * Culture, Urine, Routine (04/10/2025 1:15 PM EDT) Urine Urine specimen obtained by clean catch procedure / Unknown 04/10/2025 1:15 PM EDT 04/10/2025 6:40 PM EDT Comment:UACC Narrative [facility] - 04/12/2025 7:54 AM EDT Escherichia coli Quant 10,000 to 50,000 cfu/mL Escherichia coli: Ampicillin 4(S) Escherichia coli: Cefazolin (Urine) <=1(S) Escherichia coli: Cefepime <=0.12(S) Escherichia coli: Ceftriaxone <=0.25(S) Escherichia coli: Ciprofloxacin <=0.06(S) Escherichia coli: Gentamicin <=1(S) Escherichia coli: Nitrofurantoin <=16(S) Escherichia coli: Trimethoprim/Sulfamethoxazole <=20(S) Specimen Source: Urine clean catch us Dot Fisher MD LAB MICROBIOLOGY - GENERAL OR DERABLES Final Result [facility] [address] [place] [phone] * POCT MARIZA-14 Urine Drug Screen (03/09/2025 [...] AM EDT . Internal Pass Control Lot# [id number] Exp: 04-21-26 us Ej Shen MD POINT OF CARE TEST ENTER/EDIT ORDERABLES Final Result * Hepatitis C Antibody with Reflex to HCV, RNA, Quantitative, Real-Time PCR (09/05/2024 11:01 AM EDT) Hepatitis C Antibody Nonreactive Nonreactive [facility] Comment:Antibodies to HCV no t detected; does not exclude early acuteHCV infection. Blood Venous blood specimen / Unknown 09/05/2024 11:01 AM EDT 09/05/2024 2:19 PM EDT Ej Shen MD LAB BLOOD ORDERABL ES Final Result [facility] [address] [place] [address] [phone] from Last 3 Months or Most Recently Relevant to Health Maintenance Insurance [facility] MEDICARE REPLACEMENT Care Teams Deputy Chief Sheriff Relationship Specialty Start Date End Date Ej Ceron MD [address] [place] [id number] PCP - General Internal Medicine 06/08/24
--- OUTSIDE RECORDS SUMMARY | 2025-04-20 14:00 | XMS_ITS | Encounter Summary ---
Author Organization [employer] Address [address] [facility] 7t [place] [address] Care Team Providers Care Student Activities Director Name Role Phone Ej Ceron MD Primary Care Prov ider Reason for Visit * Reason Onset Date Comments Med Refill 06/08/2024 Encounter Details Date Type Department Care Team (Late st Contact Info) Description 06/08/2024 Telephone [facility] [address] [place] [address] Ej Ceron MD [address] [place] [address] Med Refill Social History Tobacco Use Types [...] tablets a Day. To be sent to: [id number] - [place], [place] - [address] [place] [address] AT SEC OF [facility] documented in this encounter Plan of Treatment Upcoming Encounters Date Type Department Care Team ([facility] st Contact Info) Description 05/25/2025 11:00 AM EST Clinical Support [facility] [address] [place] [address] Roz Christopher RN [address] [place] [address] 06/06/2025 9:30 AM EST Office Visit [facility] [address] [place] [address] Ej Ceron MD [address] [place] [address] documented as of this encounter Visit Diagnoses Not on filedocumented in this encounter Additional Health Concerns Assessment Noted Time PHQ-9 Depression Total Score: 0 05/17/20 2:24 PM EST documented as of this encounter Care Teams Student Activities Director Relationship Specialty Start Date End Date Ej Ceron MD [address] [place] [phone] PCP - General Internal Medicine 06/08/24 documented as of this encounter
--- OUTSIDE RECORDS SUMMARY | 2025-04-20 14:00 | XMS_ITS | Encounter Summary ---
Author Organization [employer] Address [address] [facility] 7t [place] [address] Care Team Providers Care Players Club Representative Name Role Phone Ej Ceron MD Primary Care Prov ider Reason for Visit * Reason Comments Med Refill Encounter Details Date Type Department Care Team ([facility] Contact Info) Description 11/27/2024 Refill [facility] [address] [place], [place] [phone] Ej Ceron MD [address] [place] [address] Social History Tobacco Use Types Packs/Day Years [...] [facility] [address] [place] [address] Roz Christopher RN [address] [place] [address] 06/06/2025 9:30 AM EST Office Visit [facility] [address] [place] [address] Ej Ceron MD [address] [place] [address] documented as of this encounter Visit Diagnoses Not on filedocumented in this encounter Additional Health Concerns Assessment Noted Time PHQ-9 Depression Total Score: 0 05/17/20 2:24 PM EST documented as of this encounter Care Teams Players Club Representative Relationship Specialty Start Date End Date Ej Ceron MD [address] [place] [address] PCP - General Internal Medicine 06/08/24 documented as of this encounter
--- OUTSIDE RECORDS SUMMARY | 2025-04-20 14:00 | XMS_ITS | Patient Health Record ---
Author Organization [facility] Address [address] [place] [address] Care Team Providers Care Tv Host Name Role Phone Pablo Ruano DO Primary Care Provider Serenity Gomez Unavailable [phone] Allergies Allergen (clinical drug ingredient) Drug/Non Drug [...] Insured Coverage Start Date Coverage End Date [facility] [address] [place] [address] [id number] Tejal Steward Self - patient is the [...]
--- OUTSIDE RECORDS SUMMARY | 2025-04-20 14:00 | XMS_ITS | Encounter Summary ---
Author Organization [employer] Address [address] [facility] 7t [place] [address] Care Team Providers Care Presser And Shaper Knitted Goods Name Role Phone Ej Ceron MD Primary Care Prov ider Reason for Visit * Reason Comments Med Refill Encounter Details Date Type Department Care Team ([facility] Contact Info) Description 10/12/2024 Refill [facility] [address] [place], [place] [phone] Samra Bush MD [address] [place] [address] Social History Tobacco Use Types Packs/Day Years [...] Description 05/25/2025 11:00 AM EST Clinical Support [facility] [address] [place] [address] Roz Christopher RN [address] [place] [address] 06/06/2025 9:30 AM EST Office Visit [facility] [address] [place] [address] Ej Ceron MD [address] [place] [address] documented as of this encounter Visit Diagnoses Not on filedocumented in this encounter Additional Health Concerns Assessment Noted Time PHQ-9 Depression Total Score: 0 05/17/20 2:24 PM EST documented as of this encounter Care Teams Presser [employer] Sh[employer] Goods Relationship Specialty Start Date End Date Ej Ceron MD [address] [place] [address] PCP - General Internal Medicine 06/08/24 documented as of this encounter
--- OUTSIDE RECORDS SUMMARY | 2025-04-20 14:00 | XMS_ITS | Clinical Summary ---
Author Organization [employer] Address [address] [place] [address] Care Team Providers Care Paste Up Worker Name Role Phone Ej Ceron Primary Care Provide r Allergies No known active allergies Encounters Date Type Department Care Team Description 04/13/2025 11:32 AM EDT - 04/13/2025 11:59 PM EDT Hospital Encounter [facility] CT Scan [address] [place] [phone] Former smoker; Encounter for screening for lung cancer Discharge Disposition: Home or Self Care 03/24/2025 Telephone Lung Screening Program - [place] [address] [facility] [address] [place] [phone] Ermelinda Murry MD from Last 3 Months Surgical History Surgery Date Site/Laterality Comments LITHOTRIPSY PROCEDURE: HISTORICAL LITHOTRIPSY BOWEL RESECTION PROCEDURE: HISTORICAL BOWEL RESECTION OTHER SURGICAL HISTORY PROCEDURE: HISTORY OTHER; COMMENT: mid urethral sling operation COLONOSCOPY 2017 PROCEDURE: HISTORICAL COLONOSCOPY; COMMENT: Dr Anthony repeat 10 yrs. No report received SHOULDER SURGERY 2009 Right PROCEDURE: HISTORICAL SHOULDER SURGERY Medical History [...] Years Used Date Smoking Tobacco: Former Cigarettes 1 45 1 978 - 07/02/2022 Smokeless Tobacco: Never Alcohol Use Standard [...] Vaccines (2 of 2) 09/21/2023 07/27/2023, 06/22 Depression Screening 06/22/2024 COVID-19 Vaccine ( season) 2025 07/27/2023, 07/06/2023, 05/21/2022, Additional history exists Influenza Vaccine (#1) 2025 , 07/17/2023, 04/17/2022, Additional history exists Hypertension/CHF/CAD Annual BMP Blood Test 09/05/2025 09/05/2024, 06/06/2024 Lung Cancer Screening (Low Dose CT) 04/13/2026 04/13/2025, 04/12/2024, 04/09/2023, Additional history exists Breast Cancer Screening 08/02/2026 08/02/2024 Colorectal Cancer Screening: Colonoscopy 08/15/2026 Cholesterol Screening (Lipid Panel) 09/05/2029 09/05/2024 Osteoporosis Screening (Bone Density Screening) 06/18/2030 06/18/2020 DTaP,Tdap,and Td Vaccines (3 - Td or Tdap) 12/18/2030 12/18/2020, 02/14/2010 Pneumococcal Vaccine: 50+ Years Completed 07/27/2023, 01/15/2023, 11/30/2017, Additional history exists RSV Immunization Adult Patients Completed 07/27/2023 Hepatitis C Screening Completed 09/05/2024 [...] Procedure Name Priority Date/Time Associated Diagnosis Comments CT LUNG SCREENING Routine 04/13/2025 11: 45 AM EDT Former smoker Encounter for screening for lung cancer MG MAMMO DIGITAL SCREENING W PASHA BILAT Routine 08/02/2024 11:20 AM EST Encounter for screening mammogram for malignant neoplasm of breast DXA BONE DENSITY STUDY 1+ SITS AXIAL SKEL Routine 06/18/2020 11:06 AM EST Asymptomatic menopausal state from Last 3 Months or Most Recently Relevant to Health Maintenance Results * CT Lung Screening (04/13/2025 11:45 AM EDT) Anatomical Region Laterality Modality Chest Computed Tomogra phy 04/20/2025 10:2 1 AM EDT Impressions 04/20/2025 10:32 AM EDT Impression: No suspicious developing pulmonary nodule. No significant change. Lung-RADS Category: Lung-RADS 2: Nodule(s) with benign appearance or behavior. Continue annual screening with Low Dose Chest CT in 12 months. Telerad LUIDN ([id number]) -------- FINAL REPORT -------- Dictated By: Noemy Chairez Dictated Date: 04/20/2025 10:21 ET Assigned Physician: Noemy Chairez Reviewed and Electronically Signed By: Noemy Chairez Signed Date: 04/20/2025 10:32 ET Workstation ID: [id number] Transcribed By: Self Edit Transcribed Date: 04/20/2025 10:21 ET Narrative 04/20/2025 10:32 AM EDT History: 70 year-old 45 pack-year former smoker, asymptomatic, for lung cancer screening. Quit smoking 2 years ago. Comparison: 04/12/24 Technique: Helical volumetric imaging of the thorax was performed, using low- dose technique, without IV contrast. DLP: 99.71 mGy/cm CTDIvol: 3.22 mGy [employer] VCT Iterative reconstruction technique Findings: Lungs and Airways: The trachea and central bronchial tree remain patent. Centrilobular emphysema is again noted. Minimal subsegmental atelectasis is seen at the base of the right middle lobe and lingula. Few scattered sub-5 mm solid, noncalcified pulmonary nodules are without significant change. Rare homogeneously calcified nodules are consistent with old granulomatous disease. No suspicious developing nodule is identified. Pleura: No pleural effusions are identified. A trace pericardial effusion is unchanged. Base of neck, mediastinum and heart: The heart remains normal in size. Severe, three-vessel coronary artery calcification is again noted. No developing thoracic lymphadenopathy is seen. Soft tissues: The overlying soft tissues are unremarkable. Abdomen: This study was performed without contrast and with lower than standard dose. These factors reduce the sensitivity for detection of small lesions in the upper abdomen. A 14 mm hepatic cyst is again seen. 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 Procedure Note Noemy Chairez MD - 04/20/2025 History: 70 year-old 45 pack-year former smoker, asymptomatic, for lungcancer screening. Quit smoking 2 years ago. Comparison: 04/12/24 Technique: Helical volumetric imaging of the thorax was performed, usinglow-dose technique, without IV contrast. DLP: 99.71 mGy/cm CTDIvol: 3.22 mGy [employer] VCT Iterative reconstruction technique Findings: Lungs and Airways: The trachea and central bronchial tree remain patent.Centrilobular emphysema is again noted. Minimal subsegmental atelectasisis seen at the base of the right middle lobe and lingula. Few scattered sub-5 mm solid, noncalcified pulmonary nodules are withoutsignificant change. Rare homogeneously calcified nodules are consistentwith old granulomatous disease. No suspicious developing nodule isidentified. Pleura: No pleural effusions are identified. A trace pericardial effusionis unchanged. Base of neck, mediastinum and heart: The heart remains normal in size.Severe, three-vessel coronary artery calcification is again noted. Nodeveloping thoracic lymphadenopathy is seen. Soft tissues: The overlying soft tissues are unremarkable. Abdomen: This study was performed without contrast and with lower thanstandard dose. These factors reduce the sensitivity for detection of smalllesions in the upper abdomen. A 14 mm hepatic cyst is again seen. 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 IMPRESSION: Impression: No suspicious developing pulmonary nodule. No significant change. Lung-RADS Category: Lung-RADS 2: Nodule(s) with benign appearance orbehavior. Continue annual screening with Low Dose Chest CT in 12 months. [facility]eler[facility] PA ([id number]) -------- FINAL REPORT -------- Dictated By: Noemy Chairez Dictated Date: 04/20/2025 10:21 ET Assigned Physician: Noemy Chairez Reviewed and Electronically Signed By: Noemy Chairez Signed Date: 04/20/2025 10:32 ET Workstation ID: [id number] Transcribed By: Self Edit Transcribed Date: 04/20/2025 10:21 ET us Ermelinda Murry MD IMG CT PROCEDURES Final Result * MG Mammo Digital Screening w Pasha bilat (08/02/2024 11:20 AM EST) Anatomical Region Laterality Modality Breast Bilateral Mammography 08/04/2024 9:24 AM EST Impressions 08/04/2024 9:29 AM EST No mammographic evidence of malignancy. BI-RADS: Category 1: Negative RECOMMENDATION(S): Routine screening mammogram BILATERAL in 1 year. -------- FINAL REPORT -------- Dictated By: MUKUND FOLEY Dictated Date: 08/04/2024 09:24 ET Assigned Physician: MUKUND FOLEY Reviewed and Electronically Signed By: MUKUND FOLEY Signed Date: 08/04/2024 09:29 ET Workstation ID: [id number] Transcribed By: Self Edit Transcribed Date: 08/04/2024 09:24 ET Narrative 08/04/2024 9:29 AM EST EXAM: MG MAMMO DIGITAL SCREENING W PASHA BILAT EXAM DATE AND TIME: 08/02/2024 10:50 AM HISTORY: Breast cancer screen, avg risk, asymptomatic (Age => 40y) COMPARISON: 08/07/2016 TECHNIQUE: Bilateral digital breast tomosynthesis was performed in the MLO projection. Computer aided detection with iCAD [employer] 3D 3.1 was employed. TISSUE DENSITY: b: There are scattered areas of fibroglandular density. FINDINGS: There is no evidence of suspicious mass, unusual calcifications, or architectural distortion. Procedure Note Mukund Foley MD - 08/04/2024 EXAM: MG MAMMO DIGITAL SCREENING W PASHA BRISCOEAT EXAM DATE AND TIME: 08/02/2024 10:50 AM HISTORY: Breast cancer screen, avg risk, asymptomatic (Age => 40y) COMPARISON: 08/07/2016 TECHNIQUE: Bilateral digital breast tomosynthesis was performed in the MLOprojection. Computer aided detection with [employer] 3D 3.1 wasemployed. TISSUE DENSITY: b: There [...] Signed Date: 08/04/2024 09:29 ET Workstation ID: [id number] Transcribed By: Self Edit Transcribed Date: 08/04/2024 09:24 ET Ej Shen IMG BI PROCEDURES Fin al Result * DXA BONE DENSITY STUDY 1+ [...] (World Health Organization Fracture Risk Assessment) The [facility] Department of Internal Medicine recommends using National [...] alternative screening schedule based on trista Suero., [facility] July 10, 2011 for patients with [...] years. (World HealthOrganization Fracture Risk Assessment) [facility] Department of Internal Medicine recommendsusing National Osteoporosis [...] alternative screening schedule based on trista Suero., [facility] for patients with osteopenia (based on hip BMD T-score) is as follows: * advanced osteopenia (T scores -2.00 to -2.49), BMD testing every year * moderate osteopenia (T scores -1.50 to -1.99), BMD testing every 5years mild osteopenia or normal BMD (T scores -1.50 and higher), BMD testingevery 15 years John Cerrato MD Hu DXA PROCEDURES Final Res ult from Last 3 Months or Most Recently Relevant to Health Maintenance Insurance [employer] MEDICARE Care Teams Paste Up Worker Relationship Specialty Start Date End Date Ej Ceron [address] [place] [phone] PCP - General Internal Medicine 07/19/24
== END 2025-04-20 11:29 | disposition home or self-care (01) ==
LOC: HO.HVS 11:11
PROVIDERS: PCP Internal Medicine; Visit Provider Surgery Vascular Surgery
DX: I73.9 Peripheral vascular disease, unspecified (principal)
CPT/HCPCS: 99204; G2211

== ENCOUNTER → 2025-04-20 11:10 | Outpatient (BNVA) | payer MEDICARE, SELFPAY | PROVIDERS: PCP Internal Medicine; Visit Provider Surgery Vascular Surgery | DX: I83.893 Varicose veins of bilateral lower extremities with other complications (principal); I73.9 Peripheral vascular disease, unspecified; Z87.891 Personal history of nicotine dependence; E78.5 Hyperlipidemia, unspecified; Z79.82 Long term (current) use of aspirin | CPT/HCPCS: 99202 ==

== ENCOUNTER 2025-06-06 10:12 | Outpatient (REF) | payer MEDICARE, SELFPAY ==
--- OUTSIDE RECORDS SUMMARY | 2025-06-06 09:30 | XMS_ITS | Encounter Summary ---
Author Organization [email or web address] Address [address] [facility] 7t [place] [address] Care Team Providers Care Gray Tender Name Role Phone Ej Ceron MD Primary Care Prov ider Encounter Details Date Type Department Care Team (Latest Contact Info) Description 06/06/2025 9:30 AM EST Office Visit [facility]EDS [address] [place], [place] [phone] Ej Ceron MD [address] [place], [place] [phone] Acquired hypothyroidism (Primary Dx); Chronic left shoulder pain Social History Tobacco Use Types Packs/Day Years Used Date Smoking Tobacco: Former Cigarettes 0.5 46 S tarted: 1974 Smokeless Tobacco: Never Alcohol Use Standard Drinks/Week Comments Yes 0 (1 standard drink = 0.6 oz pur e alcohol) tequila 1-2 times a yeart Depression Answer Date Recorded Patient Health Questionnaire-9 Score 0 06/06/2025 Patient Health Questionnaire-9 Score 0 06/06/2025 Last PHQ-9: Questionnaire Data Not on file 1 08/07/2024 Housing Stability Answer Date Recorded What is your housing situation today? I have wilfredo juarez 06/06/[address] you li ve. Do you have problems with any of the following? None of the above 06/06/2025 Food Insecurity Answer Date Recorded Within the past 12 months, y ou worried that your food would run out before you got money to buy more: Never True 06/06/2025 Within the past 12 months,th e food you bought just didn't last and you didn't have enough money to get more: Never True Transportation Answer Date Recorded In the past 12 months, has l ack of transportation kept you from medical appts, meetings, work or from getting things needed for daily living? No 06/06/2025 Utilities Answer Date Recorded In the past 12 months, has t he electric, gas, oil or water company threatened to shut off services in your home? No 06/06/2025 Depression Answer Date Recorded Patient Health Questionnaire-2 Score 0 06/06/2025 Internet Access Answer Date Recorded Internet Access Q1 Yes 06/06/2025 Internet Access Q2 Not on file 06/06/2025 Comments Unknown Sex and Gender Information Value Date Recorded Sex Assigned at Female 05/17/2024 12:03 PM EST Legal Sex Female 11:53 AM EDT Gender Identity Female 05/17/2024 12:03 PM EST Sexual Orientation Don't know 05/17/2024 12 :03 PM EST documented as of this encounter Last Filed Vital Signs Vital Sign Reading Time Taken Comments Blood Pressure 156/81 06/06/2025 9:29 AM EST Pulse 76 06/06/2025 9:29 AM EST Temperature 36.3 C (97.4 F) 06/06/2025 9:29 AM EST Respiratory Rate 16 06/06/2025 9:29 AM EST Oxygen Saturation 96% 06/06/2025 9:29 AM EST Inhaled Oxygen Concentration - - Weight 79.4 kg (175 lb) 06/06/2025 9:29 AM EST Height 166.4 cm (5' 5.5 ) 06/06/2025 9:29 AM EST Body Mass Index 28.68 06/06/2025 9:29 AM EST documented in this encounter Functional Status * Over the past 2 weeks, how often have you been bothered by any of the following problems? Question Answer Date of Assessment Author Patient Health Questionnaire-2 Score 0 05/22 9:33 AM EST Lydia Blackwood MA * Little interest or pleasure in doing things Answer Date of Assessment Author Not at all 06/06/2025 9:33 AM EST Jenna Blackwood MA * Feeling down, depressed, or hopeless Answer Date of Assessment Author Not at all 06/06/2025 9:33 AM EST Jenna Blackwood MA * Trouble falling or staying asleep, or sleeping too much Answer Date of Assessment Author Not at all 06/06/2025 9:33 AM Jenna Escobedo MA * Feeling tired or having little energy Answer Date of Assessment Author Not at all 06/06/2025 9:33 AM Jenna Escobedo MA * Poor appetite or overeating Answer Date of Assessment Author Not at all 06/06/2025 9:33 AM Jenna Escobedo MA * Feeling bad about yourself - or that you are a failure or have let yourself or your family down Answer Date of Assessment Author Not at all 06/06/2025 9:33 AM Jenna Escobedo MA * Trouble concentrating on things, such as reading the newspaper or watching television Answer Date of Assessment Author Not at all 06/06/2025 9:33 AM Sharmaine Escobedo MA * Moving or speaking so slowly that other people could have noticed? Or the opposite - being so fidgety or restless that you have been moving around a lot more than usual. Answer Date of Assessment Author Not at all 06/06/2025 9:33 AM Jenna Escobedo MA * Thoughts that you would be better off or hurting yourself in some way Answer Date of Assessment Author Not at all 06/06/2025 9:33 AM Jenna Escobedo MA * Patient Health Questionnaire-9 Score Answer Date of Assessment Author 0 06/06/2025 9:33 AM Jenna Escobedo MA documented as of this encounter Plan of Treatment Upcoming Encounters Date Type Department Care Team (Late st Contact Info) Description 08/21/2025 9:30 AM EST Telemedicine [facility] PED[facility] [address] [place] [address] Roz Christopher RN [address] [place] [address] Scheduled Orders Name Type Priority Associated Diagnoses Orde r Schedule TSH W/Reflex to FT4 Lab Routine Acquired hypothyroidism Expected: 06/06/2025 (Approximate), Expires: 06/06/2026 documented as of this encounter Visit Diagnoses Diagnosis Acquired hypothyroidism- Primary Unspecified hypothyroidism Chronic left shoulder pain Pain in joint, shoulder region documented in this encounter Additional Health Concerns Assessment Noted Time PHQ-9 Depression Total Score: 0 06/06/20 25 9:33 AM EST documented as of this encounter Care Teams Gray Tender Relationship Specialty Start Date End Date Ej Ceron MD [address] [place] [phone] PCP - General Internal Medicine 06/08/24 documented as of this encounter
--- OUTSIDE RECORDS SUMMARY | 2025-06-06 12:40 | XMS_ITS | Encounter Summary ---
Author Organization [employer] Address [address] [facility] 7t [place] [address] Care Team Providers Care Construction Secretary Name Role Phone Ej Ceron MD Primary Care Prov ider Reason for Visit * Reason Onset Date Comments Medication Question 02/09/2025 Encounter Details Date Type Department Care Team (Late st Contact Info) Description 02/09/2025 Telephone [facility] MED[facility]INE [address] [place] [address] Ej Ceron MD [address] [place], [place] [phone] Medication Question Social History Tobacco Use Types [...] in the past by old PCP at [facility] . Ptreports giving provider a list of meds she used to take . documented in this encounter Plan of Treatment Upcoming Encounters Date Type Department Care Team ([facility] st Contact Info) Description 08/21/2025 9:30 AM EST Telemedicine [facility] PEDS [address] [place] [address] Roz Christopher, RN [address] [place] [address] documented as of this encounter Visit Diagnoses Not on filedocumented in this encounter Additional Health Concerns Assessment Noted Time PHQ-9 Depression Total Score: 0 05/17/20 24 2:24 PM EST documented as of this encounter Care Teams Construction Secretary Relationship Specialty Start Date End Date Ej Ceron MD [address] [place] [phone] PCP - General Internal Medicine 06/08/24 documented as of this encounter
--- OUTSIDE RECORDS SUMMARY | 2025-06-06 12:40 | XMS_ITS | Clinical Summary ---
Author Organization [facility] [place] Address [address] [place] [address] Care Team Providers Care Ironworker Wire Fence Erector Name Role Phone Ej Ceron Primary Care Provide r Allergies No known active allergies Encounters Date Type Department Care Team Description 04/13/2025 11:32 AM EDT - 04/13/2025 11:59 PM EDT Hospital Encounter [facility] CT Scan [address] [place] [phone] Former smoker; Encounter for screening for lung cancer Discharge Disposition: Home or Self Care 03/24/2025 Telephone Lung Screening Program - [place] [address] [facility] [address] [place] [phone] Ermelinda Murry MD from Last 3 Months [...] Orientation Straight 07/19/2024 2: 15 PM EST Last Filed Vital Signs Vital [...] Chest CT [place] 12 [place] ([id number]) -------- FINAL REPORT -------- Dictated By: Noemy Chairez Dictated Date: 04/20/2025 10:21 ET Assigned Physician: Noemy Chairez Reviewed and Electronically Signed By: Noemy Chairez Signed Date: 04/20/2025 10:32 ET Workstation ID: [id number] Transcribed By: Self Edit Transcribed Date: 04/20/2025 10:21 ET Narrative 04/20/2025 10:32 AM EDT History: 70 year-old 45 pack-year former smoker, asymptomatic, for lung cancer screening. Quit smoking 2 years ago. Comparison: 04/12/24 Technique: Helical volumetric imaging of the thorax was performed, using low- dose technique, without IV contrast. DLP: 99.71 mGy/cm CTDIvol: 3.22 mGy [email or web address] VCT Iterative reconstruction technique Findings: Lungs and [...] contrast. DLP: 99.71 mGy/cm CTDIvol: 3.22 mGy [employer] VCT Iterative reconstruction technique Findings: Lungs and [...] Chest CT in 12 months. [place] ([id number]) -------- FINAL REPORT -------- Dictated By: Noemy Chairez Dictated Date: 04/20/2025 10:21 ET Assigned Physician: Noemy Chairez Reviewed and Electronically Signed By: Noemy Chairez Signed Date: 04/20/2025 10:32 ET Workstation ID: [id number] Transcribed By: Self Edit Transcribed Date: 04/20/2025 10:21 ET Ermelinda Murry MD IMG CT PROCEDURES Final [...] Signed Date: 08/04/2024 09:29 ET Workstation ID: [id number] Transcribed By: Self Edit Transcribed Date: 08/04/2024 09:24 ET Narrative 08/04/2024 9:29 AM EST EXAM: MG MAMMO DIGITAL SCREENING W PASHA BILAT EXAM DATE AND TIME: 08/02/2024 10:50 AM HISTORY: Breast cancer screen, avg risk, asymptomatic (Age => 40y) COMPARISON: 08/07/2016 TECHNIQUE: Bilateral digital breast tomosynthesis was performed in the MLO projection. Computer aided detection with Livescribe 3D 3.1 was employed. TISSUE DENSITY: b: [...] in the MLOprojection. Computer aided detection with Lives[employer] 3D 3.1 wasemployed. TISSUE DENSITY: b: There [...] Signed Date: 08/04/2024 09:29 ET Workstation ID: [id number] Transcribed By: Self Edit Transcribed Date: 08/04/2024 [...] (World Health Organization Fracture Risk Assessment) The [facility] Department of Internal Medicine recommends using National [...] alternative screening schedule based on trista Suero., [facility] July 10, 2011 for patients with osteopenia [...] years. (World HealthOrganization Fracture Risk Assessment) The [facility] Department of Internal Medicine recommendsusing National Osteoporosis [...] alternative screening schedule based on trista Suero., [facility] for patients with osteopenia (based on [...] Maintenance Insurance [employer] MEDICARE Care Teams Ironworker Wire Fence Erector Relationship Specialty Start Date End Date Ej Ceron [address] [place] [phone] PCP - General Internal Medicine 07/19/24
--- OUTSIDE RECORDS SUMMARY | 2025-06-06 12:40 | XMS_ITS | Encounter Summary ---
Author Organization [employer] Address [address] [facility] 7t [place] [address] Care Team Providers Care Head Inspector Name Role Phone Ej Ceron MD Primary Care Prov ider Reason for Visit * Reason Onset Date Comments Med Refill 09/08/2024 Encounter Details Date Type Department Care Team (Late st Contact Info) Description 09/08/2024 Telephone [facility] [address] [place] [address] Ej Ceron MD [address] [place] [address] [phone] Med Refill Social History Tobacco Use Types [...] 50 MG tablet To be sent to: [facility] [address] [place] [phone] documented in this encounter Plan of Treatment Upcoming Encounters Date Type Department Care Team (Late st Contact Info) Description 08/21/2025 9:30 AM EST Telemedicine [facility] [address] [place] [address] Roz Christopher RN 505 [place] [address] documented as of this encounter Visit Diagnoses Not on filedocumented in this encounter Additional Health Concerns Assessment Noted Time PHQ-9 Depression Total Score: 0 05/17/20 24 2:24 PM EST documented as of this encounter Care Teams Head Inspector Relationship Specialty Start Date End Date Ej Ceron MD 505 [place] [address] PCP - General Internal Medicine 06/08/24 documented as of this encounter
--- OUTSIDE RECORDS SUMMARY | 2025-06-06 12:40 | XMS_ITS | Encounter Summary ---
Author Organization [employer] Address [address] [facility] 7t [place] [address] Care Team Providers Care Seed Yeast Operator Name Role Phone Ej Ceron MD Primary Care Prov ider Reason for Visit * Reason Onset Date Comments Med Refill 09/08/2024 Encounter Details Date Type Department Care Team (Late st Contact Info) Description 09/08/2024 Telephone [facility] [address] [place] [address] Ej Ceron MD [address] [place] [address] [phone] Med Refill Social History Tobacco Use Types [...] 100 MG capsule To be sent to: [facility]- [address] [place] [phone] documented in this encounter Plan of Treatment Upcoming Encounters Date Type Department Care Team (Late st Contact Info) Description 08/21/2025 9:30 AM EST Telemedicine [facility] [address] [place] [address] Roz Christopher, MARANDA 505 [place] [address] documented as of this encounter Visit Diagnoses Not on filedocumented in this encounter Additional Health Concerns Assessment Noted Time PHQ-9 Depression Total Score: 0 05/17/20 24 2:24 PM EST documented as of this encounter Care Teams Seed Yeast Operator Relationship Specialty Start Date End Date Ej Ceron MD [address] [place] [address] PCP - General Internal Medicine 06/08/24 documented as of this encounter
--- OUTSIDE RECORDS SUMMARY | 2025-06-06 12:40 | XMS_ITS | Clinical Summary ---
Author Organization [employer] Address [address] [facility] [address] 7t [place] [address] Care Team Providers Care Student Services Vice President Name Role Phone Ej Ceron MD Primary [...] 2 each 2 12/23/19 25 026 Active gabapentin (Neurontin) 100 MG capsule TAKE 2 CAPSULES BY MOUTH THREE TIMES DAILY 540 capsule 03/30/20 25 Active albuterol 108 (90 Base) MCG/ACT inhaler Inhale 2 puffs every 4 (four) hours if needed for wheezing. 18 g 04/10/20 25 026 Active atorvastatin (Lipitor) 80 MG tablet TAKE 1 TABLET BY MOUTH EVERY DAY 90 tablet 1 04/19/20 Active levothyroxine (Synthroid, Levoxyl) 88 MCG tablet TAKE 1 TABLET BY MOUTH BEFORE BREAKFAST 90 tablet 1 04/19/20 Active omeprazole (PriLOSEC) [address] capsule TAKE 1 CAPSULE BY MOUTH BEFORE BREAKFAST. DO NOT CRUSH OR CHEW. 90 capsule 05/02/20 Active traMADol (Ultram) 50 MG tabletIndicat ions:Chronic left shoulder pain Take 1 tablet (50 mg) by mouth every 12 (twelve) hours if needed for severe pain for up to 28 days. 56 tablet 06/06/20 25 026 Active amoxicillin-c lavulanate (Augmentin) 875-125 MG tablet Take 1 tablet by mouth 2 times daily for 7 days. 14 tablet 06/06/20 25 025 Active predniSONE (Deltasone) 20 MG tablet Take 2 tablets (40 mg) by mouth Once per day for 5 days. 10 tablet 06/06/20 25 025 Active losartan (Cozaar) 25 MG tablet Take 1 tablet (25 mg) by mouth Once per day. 30 tablet 11 06/06/20 25 026 Active Blood Pressure kit 1 kit Once per day. 1 kit 06/06/20 Active traMADol (Ultram) 50 MG tabletIndicat ions:Chronic left shoulder pain Take 1 tablet (50 mg) by mouth every 12 (twelve) hours if needed for severe pain for up to 28 days. 56 tablet 04/10/20 25 025 Discontinued(Re order (will not trigger notification to Pharmacy)) traMADol (Ultram) 50 MG tabletIndicat ions:Chronic left shoulder pain Take 1 tablet (50 mg) by mouth every 12 (twelve) hours if needed for severe pain for up to 28 days. 56 tablet 05/10/20 25 025 Discontinued(Re order (will not trigger notification to Pharmacy)) Blood Pressure kit 1 kit Once per day. 1 kit 06/06/20 25 025 Discontinued(Re order (will not trigger [...] 2008 All: morphine/bactrim Meds: as above A0 [id number] Had colonoscopy 7-8 years ago, will review gi consult Encounter for screening mamm ogram for malignant neoplasm of breast 07/08/2024 Assessment & Plan (07/08/2024 3:22 PM EST): Will order a breast mammogram Menopause 07/08/2024 Assessment & Plan (07/08/2024 3:23 PM EST): Will order a bone density scan Encounters Date Type Department Care Team Description 06/06/2025 9:30 AM EST Office Visit [facility] [address] [place] [address] Ej Ceron MD Acquired hypothyroidism (Primary Dx); Chronic left shoulder pain 06/06/2025 Travel 06/05/2025 Telephone [facility] [address] [place] [address] Ej Ceron MD Chart Prep 06/05/2025 Travel 05/25/2025 11:00 AM EST Clinical Support [facility] [address] [place] [address] Roz Christopher RN Chronic midline low back pain without sciatica (Primary Dx) 05/25/2025 Travel 05/24/2025 Travel 05/08/2025 Refill [facility] [address] [place] [address] Roz Christopher RN Chronic left shoulder pain 05/08/2025 Telephone [facility] [address] [place] [address] Ej Ceron MD Med Refill 05/02/2025 Refill [facility] [address] [place] [address] Ej Ceron MD 04/20/2025 Orders Only [facility] [address] [place] [address] Charlotte Wong MD 04/18/2025 Refill [facility] [address] [place] [address] Ej Ceron MD 04/10/2025 1:40 PM EDT Office Visit [facility] [address] [place] [address] Dot Fisher MD Cystitis (Primary Dx); Smoker; SOB (shortness of breath) on exertion; Family history of SD (myocardial infarction); Mixed hyperlipidemia; Acquired hypothyroidism 04/10/2025 Refill [facility] [address] [place] [address] Ej Ceron MD Chronic left shoulder pain 04/10/2025 Travel 04/06/2025 Telephone [facility] [address] [place] [address] Ej Ceron MD Appointment Request 04/05/2025 Telephone [facility] [address] [place] [address] Ej Ceron MD Nurse Triage 03/28/2025 Refill [facility] [address] [place] [address] Ej Ceron MD 03/10/2025 Refill [facility] [address] [place] [address] Ej Ceron MD Chronic left shoulder pain 03/09/2025 11:00 AM EDT Clinical Support [facility] [address] [place] [address] Roz Christopher RN Chronic midline low back pain without sciatica (Primary Dx) 03/09/2025 Travel 03/09/2025 Refill [facility] [address] [place] [address] Ej Ceron MD from Last 3 Months [...] Mass Index 28.68 06/06/2025 9:29 AM EST Plan of Treatment Upcoming Encounters Date Type Department Care Team (Late st Contact Info) Description 08/21/2025 9:30 AM EST Telemedicine [facility] [address] [place] [address] Roz Christopher, RN [address] [place] [address] Health Maintenance Due Date Last Done Comments CT Colonography 1957 Colonoscopy 1957 Colorectal Cancer Screening 1957 FIT DNA/Cologuard 1957 FIT 1957 FOBT 1957 Sigmoidoscopy 1957 Zoster Vaccines (2 of 2) 09/21/2023 07/27/2023, 06/22 COVID-19 Vaccine ( season) 2025 07/27/2023, 07/06/2023, 05/21/2022, Additional history exists Influenza Vaccine (#1) 2025 , 07/17/2023, 04/17/2022, Additional history exists Alcohol/Substance Use Screening 10/14/2025 10/14/2024 Tobacco Screening 04/10/2026 04/10/2025 Depression Screening 06/06/2026 06/06/2025, 06/06/20 SDOH Screening 06/06/2026 06/06/2025 Mammogram 08/02/2026 08/02/2024, 08/02/2024 DTaP/Tdap/Td Vaccines (2 [...] Comments POCT MARIZA-14 URINE DRUG SCREEN Routine 05/25/2025 11:17 AM EST Chronic midline low back pain without sciatica CT LUNG SCREENING Routine 04/13/2025 3:5 1 PM EDT POCT URINALYSIS DIPSTICK Routine 04/10/2025 1:42 PM [...] Recently Relevant to Health Maintenance Results * POCT MARIZA-14 Urine Drug Screen (05/25/2025 11:17 AM EST) Only the most recent of2 resultswithin the time period is included. THC Negative Negative Cocaine Screen, Urine Negative [...] obtained by clean catch procedure / Unknown 05/25/2025 11:17 AM EST Narrative Roz Christopher RN - 05/25/2025 11:17 AM EST . Internal Pass Control Lot# [id number] Exp: 03-28-26 Ej Shen MD POINT OF CARE TEST ENTER/EDIT ORDERABLES Final Result * CT Lung Screening Low dose (04/13/2025 3:51 PM EDT) Anatomical Region Laterality Modality Lung Computed Tomogra phy Historical Provider IMG CT PROCEDURES Final R esult * (ABNORMAL) POCT Urinalysis (04/10/2025 1:42 PM [...] Media Lot # [id number] Lot# Expiration Date [id number] Urine (Urine, Random) 04/10/2025 1:42 PM EDT Result [facility] Dot Fisher MD POINT OF CARE TEST ENTER/EDIT ORDERABLES Final Result * Culture, Urine, Routine (04/10/2025 1:15 PM EDT) Urine Urine specimen obtained by clean catch procedure / Unknown 04/10/2025 1:15 PM EDT 04/10/2025 6:40 PM EDT Comment:UACC Narrative [facility] - 04/12/2025 7:54 AM EDT [...] OR DERABLES Final Result Performing Organization Address [facility]/ZIP Co de Phone Number [facility] [address] [place] [address] [phone] * Hepatitis C Antibody with Reflex to HCV, RNA, Quantitative, Real-Time PCR (09/05/2024 11:01 AM EDT) Hepatitis C Antibody Nonreactive Nonreactive [facility] Comment:Antibodies to HCV no t detected; does not exclude early acuteHCV infection. Blood Venous blood specimen / Unknown 09/05/2024 11:01 AM EDT 09/05/2024 2:19 PM EDT us Ej Shen MD LAB BLOOD ORDERABL ES Final Result Performing Organization Address [facility]/ZIP Co de Phone Number [facility] [address] [place] [address] [phone] from Last 3 Months or Most Recently Relevant to Health Maintenance Insurance [facility] MEDICARE REPLACEMENT Care Teams Student Services Vice President Relationship Specialty Start Date End Date RayEj Wade MD [address] [place] [phone] PCP - General Internal Medicine 06/08/24
--- OUTSIDE RECORDS SUMMARY | 2025-06-06 12:40 | XMS_ITS | Encounter Summary ---
Author Organization [employer] [facility] [employer] Address [address] [facility] 7t [place] [address] Care Team Providers Care Channel Lip Stiffener Insoles Name Role Phone Ej Ceron MD Primary Care Prov ider Reason for Visit * Reason Comments Med Refill Encounter Details Date Type Department Care Team ([facility] Contact Info) Description 12/07/2024 Refill [facility] [address] [place], [place] [phone] Samra Bush MD [address] [place] [address] Social History Tobacco Use Types Packs/Day Years [...] Info) Description 08/21/2025 9:30 AM EST Telemedicine [facility] [address] [place] [address] Roz Christopher RN [address] [place] [address] documented as of this encounter Visit Diagnoses Not on filedocumented in this encounter Additional Health Concerns Assessment Noted Time PHQ-9 Depression Total Score: 0 05/17/20 24 2:24 PM EST documented as of this encounter Care Teams Channel Lip Stiffener Insoles Relationship Specialty Start Date End Date Ej Ceron MD [address] [place] [address] PCP - General Internal Medicine 06/08/24 documented as of this encounter
--- OUTSIDE RECORDS SUMMARY | 2025-06-06 12:40 | XMS_ITS | Encounter Summary ---
Author Organization [employer] Address [address] [facility] 7t [place] [address] Care Team Providers Care Tug Boat Captain Name Role Phone Ej Ceron MD Primary Care Prov ider Reason for Visit * Reason Onset Date Comments Med Refill 06/08/2024 Encounter Details Date Type Department Care Team (Late st Contact Info) Description 06/08/2024 Telephone [facility] [address] [place] [address] Ej Ceron MD [address] [place] [phone] Med Refill Social History Tobacco Use Types [...] tablets a Day. To be sent to: [id number] - [place], [place] - [address] [place] [address] AT SEC OF [facility] & [address] documented in this encounter Plan of Treatment Upcoming Encounters Date Type Department Care Team ([facility] st Contact Info) Description 08/21/2025 9:30 AM EST Telemedicine [facility] [address] [place] [address] Roz Christopher RN [address] [place] [address] documented as of this encounter Visit Diagnoses Not on filedocumented in this encounter Additional Health Concerns Assessment Noted Time PHQ-9 Depression Total Score: 0 05/17/20 24 2:24 PM EST documented as of this encounter Care Teams Tug Boat Captain Relationship Specialty Start Date End Date Ej Ceron MD [address] [place] [address] PCP - General Internal Medicine 06/08/24 documented as of this encounter
--- OUTSIDE RECORDS SUMMARY | 2025-06-06 12:40 | XMS_ITS | Encounter Summary ---
Author Organization [employer] Address [address] [facility] 7t [place] [address] Care Team Providers Care Knitting Inspector Name Role Phone Ej Ceron MD Primary Care Prov ider Reason for Visit * Reason Onset Date Comments Med Refill 10/11/2024 Encounter Details Date Type Department Care Team (Late st Contact Info) Description 10/11/2024 Telephone [facility] [address] [place] [address] Ej Ceron MD [address] [place] [address] [phone] Med Refill Social History Tobacco Use Types [...] 50 MG tablet To be sent to: [id number] - [address] * Telephone Encounter - Duke Kemp - 10/11/2024 11:06 AM EDT TC from pt requesting medication refill. Medications needing refill : traMADol (Ultram) 50 MG tablet [id number] [address] [facility] documented in this encounter Plan of Treatment Upcoming Encounters Date Type Department Care Team ([facility] st Contact Info) Description 08/21/2025 9:30 AM EST Telemedicine [facility] [address] [facility] [place] [address] Roz Christopher, MARANDA [address] [facility] [place] [address] documented as of this encounter Visit Diagnoses Not on filedocumented in this encounter Additional Health Concerns Assessment Noted Time PHQ-9 Depression Total Score: 0 05/17/20 24 2:24 PM EST documented as of this encounter Care Teams Knitting Inspector Relationship Specialty Start Date End Date Ej Ceron MD [address] [place] [address] PCP - General Internal Medicine 06/08/24 documented as of this encounter
--- OUTSIDE RECORDS SUMMARY | 2025-06-06 12:40 | XMS_ITS | Encounter Summary ---
Author Organization [employer] Address [address] [facility] 7t [place] [address] Care Team Providers Care Lumber Racker Name Role Phone Ej Ceron MD Primary Care Prov ider Reason for Visit * Reason Onset Date Comments Med Refill 05/08/2025 Encounter Details Date Type Department Care Team (Late st Contact Info) Description 05/08/2025 Telephone [facility] [address] [place] [address] Ej Ceron MD [address] [place] [phone] Med Refill Social History Tobacco Use Types [...] encounter Miscellaneous Notes * Telephone Encounter - [facility] - 05/08/2025 1:55 PM EST TC from pt requesting med refill : traMADol (Ultram) [address] Rya documented in this encounter Plan of Treatment Upcoming Encounters Date Type Department Care Team (Late st Contact Info) Description 08/21/2025 9:30 AM EST Telemedicine [facility] [address] [place] [address] Roz Christopher, MARANDA [address] [place] [address] documented as of this encounter Visit Diagnoses Not on filedocumented in this encounter Additional Health Concerns Assessment Noted Time PHQ-9 Depression Total Score: 0 05/17/20 2:24 PM EST documented as of this encounter Care Teams Lumber Racker Relationship Specialty Start Date End Date Ej Ceron MD [address] [place] [address] PCP - General Internal Medicine 06/08/24 documented as of this encounter
--- OUTSIDE RECORDS SUMMARY | 2025-06-06 12:40 | XMS_ITS | Encounter Summary ---
Author Organization [employer] Address [address] [facility] 7t [place] [address] Care Team Providers Care Director Of Pediatric Rehabilitation Name Role Phone Ej Ceron MD Primary Care Prov ider Encounter Details Date Type Department Care Team (Late st Contact Info) Description 04/20/2025 Orders Only [facility] [address] [place], [place] [phone] ProviderCharlotte MD Social History Tobacco Use Types [...] Upcoming Encounters Date Type Department Care Team ([facility] st Contact Info) Description 08/21/2025 9:30 AM EST Telemedicine [facility] [address] [place] [address] Roz Christopher, RN [address] [place] [address] documented as of this encounter Procedures Procedure Name Priority Date/Time Associated Diagnosis Comments CT LUNG SCREENING Routine 04/13/2025 3:51 PM EDT documented in this encounter Results * CT Lung Screening Low dose (04/13/2025 3:51 PM EDT) Anatomical Region Laterality Modality Lung Computed Tomogra phy us Historical Provider MD VALENZUELA CT PROCEDURES Final R esult documented in this encounter Visit Diagnoses Not on filedocumented in this encounter Additional Health Concerns Assessment Noted Time PHQ-9 Depression Total Score: 0 05/17/20 24 2:24 PM EST documented as of this encounter Care Teams Director Of Pediatric Rehabilitation Relationship Specialty Start Date End Date Ej Ceron MD [address] [place] [address] PCP - General Internal Medicine 06/08/24 documented as of this encounter
--- OUTSIDE RECORDS SUMMARY | 2025-06-06 12:40 | XMS_ITS | Encounter Summary ---
Author Organization [employer] Address [address] [facility] 7t [place] [address] Care Team Providers Care Outside Production Inspector Name Role Phone Ej Ceron MD Primary Care Prov ider Reason for Visit * Reason Comments Med Refill Encounter Details Date Type Department Care Team ([facility] Contact Info) Description 11/27/2024 Refill [facility] [address] [place], [place] [phone] Ej Ceron MD [address] [place] [address] Social History Tobacco Use Types Packs/Day Years [...] Info) Description 08/21/2025 9:30 AM EST Telemedicine [facility] [address] [place] [address] Roz Christopher RN [address] [place] [address] documented as of this encounter Visit Diagnoses Not on filedocumented in this encounter Additional Health Concerns Assessment Noted Time PHQ-9 Depression Total Score: 0 05/17/20 24 2:24 PM EST documented as of this encounter Care Teams Outside Production Inspector Relationship Specialty Start Date End Date Ej Ceron MD [address] [place] [address] PCP - General Internal Medicine 06/08/24 documented as of this encounter
--- OUTSIDE RECORDS SUMMARY | 2025-06-06 12:40 | XMS_ITS | Encounter Summary ---
Author Organization [employer] Address [address] [facility] 7t [place] [address] Care Team Providers Care Hand Filer Balance Wheel Name Role Phone Ej Ceron MD Primary Care Prov ider Reason for Visit * Reason Comments Med Refill Encounter Details Date Type Department Care Team ([facility] Contact Info) Description 10/12/2024 Refill [facility] CHC MED & PEDS [address] [place], [place] [phone] Samra Bush MD 505 [place] [address] Social History Tobacco Use Types Packs/Day Years [...] Info) Description 08/21/2025 9:30 AM EST Telemedicine [facility] CHC MED & PEDS [address] [place] [address] Roz Christopher RN 505 [place] [address] documented as of this encounter Visit Diagnoses Not on filedocumented in this encounter Additional Health Concerns Assessment Noted Time PHQ-9 Depression Total Score: 0 05/17/20 24 2:24 PM EST documented as of this encounter Care Teams Hand Filer Balance Wheel Relationship Specialty Start Date End Date Ej Ceron MD 505 [place] [address] PCP - General Internal Medicine 06/08/24 documented as of this encounter
--- OUTSIDE RECORDS SUMMARY | 2025-06-06 12:40 | XMS_ITS | Encounter Summary ---
Author Organization [employer] Address [address] [facility] 7t [place] [address] Care Team Providers Care Data Management Specialist Name Role Phone Ej Ceron MD Primary Care Prov ider Reason for Visit * Reason Onset Date Comments Chart Prep 06/05/2025 Encounter Details Date Type Department Care Team ([facility] st Contact Info) Description 06/05/2025 Telephone [facility] CHC MED & PEDS 505 [place], [place] [phone] Ej Ceron MD 505 [place] [address] Chart Prep Social History Tobacco Use Types Packs/Day Years [...] encounter Miscellaneous Notes * Telephone Encounter - Karen Hope MA - 06/05/2025 2:58 PM EST Chart Prep Labs: done Images: done Referrals: appointment pending Vaccines due: Covid, Flu, and Zoster Screenings: colonoscopy Overdue care gaps: SDOH, PHQ-9, Oral health screening, and Tobacco documented in this encounter Plan of Treatment Upcoming Encounters Date Type Department Care Team ([facility] st Contact Info) Description 08/21/2025 9:30 AM EST Telemedicine [facility] MED & PEDS [address] [place] [address] Roz Christopher RN 505 [place] [address] documented as of this encounter Visit Diagnoses Not on filedocumented in this encounter Additional Health Concerns Assessment Noted Time PHQ-9 Depression Total Score: 0 05/17/20 2:24 PM EST documented as of this encounter Care Teams Data Management Specialist Relationship Specialty Start Date End Date Ej Ceron MD [address] [place] [address] PCP - General Internal Medicine 06/08/24 documented as of this encounter
--- OUTSIDE RECORDS SUMMARY | 2025-06-06 12:40 | XMS_ITS | Encounter Summary ---
Author Organization [employer] Address [address] [facility] 7t [place] [address] Care Team Providers Care Director Of Procurement Name Role Phone Ej Ceron MD Primary Care Prov ider Reason for Visit * Reason Comments Med Refill Encounter Details Date Type Department Care Team ([facility] Contact Info) Description 03/09/2025 Refill [facility] CHC MED & PEDS 505 [place], [place] [phone] Ej Ceron MD 505 [place] [address] Social History Tobacco Use Types Packs/Day Years [...] Info) Description 08/21/2025 9:30 AM EST Telemedicine [facility] CHC MED & PEDS [address] [place] [address] Roz Christopher RN 505 [place] [address] documented as of this encounter Visit Diagnoses Not on filedocumented in this encounter Additional Health Concerns Assessment Noted Time PHQ-9 Depression Total Score: 0 05/17/20 24 2:24 PM EST documented as of this encounter Care Teams Director Of Procurement Relationship Specialty Start Date End Date Ej Ceron MD 505 [place] [address] PCP - General Internal Medicine 06/08/24 documented as of this encounter
--- OUTSIDE RECORDS SUMMARY | 2025-06-06 12:40 | XMS_ITS | Encounter Summary ---
Author Organization [employer] Address [address] [facility] [address] 7t [place] [address] Care Team Providers Care Recorder Gravity Prospecting Name Role Phone Ej Ceron MD Primary Care Prov ider Encounter Details Date Type Department Care Team (Latest Contact Info) Description 06/05/2025 Travel Social History Tobacco Use Types Packs/Day [...] Info) Description 08/21/2025 9:30 AM EST Telemedicine [facility] MED & PEDS 505 [place] [address] Roz Christopher RN 505 [place] [address] documented as of this encounter Visit Diagnoses Not on filedocumented in this encounter Additional Health Concerns Assessment Noted Time PHQ-9 Depression Total Score: 0 05/17/20 2:24 PM EST documented as of this encounter Care Teams Recorder Gravity Prospecting Relationship Specialty Start Date End Date Ej Ceron MD 505 [place] [address] PCP - General Internal Medicine 06/08/24 documented as of this encounter
--- OUTSIDE RECORDS SUMMARY | 2025-06-06 12:41 | XMS_ITS | Encounter Summary ---
Author Organization [employer] Address [address] [facility] [address] 7[address] [place] [address] Care Team Providers Care Wire Brush Maker Name Role Phone Ej Ceron MD Primary Care Prov ider Encounter Details Date Type Department Care Team (Latest Contact Info) Description 06/06/2025 Travel Social History Tobacco Use Types Packs/Day [...] PM EST documented as of this encounter Functional Status * Over the past 2 weeks, how often have you been bothered by any of the following problems? Question Answer Date of Assessment Author Patient Health Questionnaire-2 Score 0 05/22 9:33 AM Lydia Escobedo MA * Little interest or pleasure in doing things Answer Date of Assessment Author Not at all 06/06/2025 9:33 AM Jenna Escobedo MA * Feeling down, depressed, or hopeless Answer Date of Assessment Author Not at all 06/06/2025 9:33 AM Jenna Escobedo MA * Trouble falling or staying asleep, [...] 06/06/2025 9:33 AM Jenna Escobedo MA * Moving or speaking so [...] 9:33 AM EST Jenna Blackwood MA * Patient Health Questionnaire-9 Score Answer Date of Assessment Author 0 06/06/2025 9:33 AM Jenna Escobedo MA documented as of this encounter Plan of Treatment Upcoming Encounters Date Type Department Care Team (Late st Contact Info) Description 08/21/2025 9:30 AM EST Telemedicine [facility] MED & PEDS [address] [facility] [place] [address] Roz Christopher, MARANDA 505 [place] [address] documented as of this encounter Visit Diagnoses Not on filedocumented in this encounter Additional Health Concerns Assessment Noted Time PHQ-9 Depression Total Score: 0 06/06/20 25 9:33 AM EST documented as of this encounter Care Teams Wire Brush Maker Relationship Specialty Start Date End Date Ej Ceron MD [address] [place] [address] PCP - General Internal Medicine 06/08/24 documented as of this encounter
--- OUTSIDE RECORDS SUMMARY | 2025-06-06 12:41 | XMS_ITS | Patient Health Record ---
Author [facility] Address [address] [place] [address] Care Team Providers Care Stone Polisher Machine Name Role Phone Pablo Ruano DO Primary Care Provider Serenity Gomez Unavailable [phone] Allergies Allergen (clinical drug ingredient) Drug/Non Drug [...] Insured Coverage Start Date Coverage End Date [facility] [address] [place] [address] [phone] [id number] Tejal Steward Self - patient is the [...]
--- OUTSIDE RECORDS SUMMARY | 2025-06-06 12:41 | XMS_ITS | Encounter Summary ---
Author Organization [employer] Address [address] [facility] 7t [place] [address] Care Team Providers Care Manager Test Name Role Phone Ej Ceron MD Primary Care Prov ider Encounter Details Date Type Department Care Team (Late st Contact Info) Description 08/04/2024 Orders Only [facility] [address] [place], [place] [phone] ProviderCharlotte MD Social History Tobacco Use Types [...] Upcoming Encounters Date Type Department Care Team ([facility] st Contact Info) Description 08/21/2025 9:30 AM EST Telemedicine [facility] MED & PEDS 505 [place] [address] Roz Christopher RN 505 [place] [address] documented as of this encounter Procedures Procedure [...] as of this encounter Care Teams Manager Test Relationship Specialty Start Date End Date Ej Ceron MD 505 [place] [address] PCP - General Internal Medicine 06/08/24 documented as of this encounter
[2025-06-06 18:53] LABS: Free T4 (Free Thyroxine) 0.95 ng/dL (0.71-1.85)
== END 2025-06-06 10:13 | disposition home or self-care (01) ==
LOC: HO.CHCLDS 10:12
PROVIDERS: Visit Provider Internal Medicine
DX: E03.9 Hypothyroidism, unspecified (principal)
CPT/HCPCS: 36415; 84439; 84443

== ENCOUNTER 2025-06-13 09:01 | Outpatient (AMB) | payer MEDICARE, SELFPAY ==
--- NOTE | 2025-06-13 09:04 | A.OFFVIS_ITS ---
Intake Visit Reasons: 6m/imaging/UA(SET) Intake Note: Patient is present for 6M/IMAGING/UA IMAGIN05/29/25 Urology Medication:NONE Antibiotic Allergy:SULFA Blood Thinner:NONE Command And Control Officer Required: No Allergies Sulfa (Sulfonamide Antibiotics) Allergy (Unknown, Verified 06/13/25 09:42) Unknown Medication List - Last Reconciled 06/13/25 by LAM UribeP- alendronate 70 mg PO QWEEK atorvastatin 80 mg PO DAILY bupropion HCl SR 150 mg PO BID cyclobenzaprine 10 mg PO DAILY PRN gabapentin 100 - 200 mg PO TID PRN ibuprofen 400 mg PO Q6H PRN levothyroxine 88 mcg PO DAILY omeprazole 40 mg PO DAILY sertraline 100 mg PO DAILY tramadol mg PO HPI Comments Details: Tejal Turcios is a very pleasant 70-year-old female patient of Dr. Cory Shen. She presents to the office today for a follow-up her nephrolithiasis. In discussion with the patient today she reports to be doing and feeling well. She denies having had any bothersome urinary issues or concerns. Most recent renal imaging results reviewed with the patient today. 04/15 bilateral kidneys with no nephrolithiasis or significant abnormality noted per radiology report. She does have a longstanding history of nephrolithiasis and has had prior surgical intervention for nephrolithiasis many years ago. She denies urinary urgency, urinary frequency, incontinence, nocturia, hematuria, dysuria, foul smelling urine, changes to urinary stream, flank pain, fever, and or chills. She is happy with her current voiding parameters. We discussed at length potential causes of nephrolithiasis as well as importance of adequate hydration relation to nephrolithiasis. She otherwise offers no other issues or concerns at this time. 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: [employer] Review of Systems Const All systems reviewed & are unremarkable except as noted in HPI and below Physical Exam Const General: cooperative, healthy appearing, comfortable, no acute distress, well developed, alert and awake Orientation/consciousness: patient oriented x3 Limitations: no limitations HEENT Head: Yes normal to inspection, Yes normocephalic and Yes atraumatic Ears: hearing grossly normal bilaterally Eyes General: appearance normal, both eyes and all related structures Neck Neck: Yes normal visual inspection and Yes trachea midline Chest Chest palpation & inspection: normal inspection of the chest Resp Effort & Inspection: normal respiratory effort and able to speak in complete sentences Cardio Rate: regular rate GI Inspection: Yes normal to inspection General: Yes no CVA tenderness Back/Spine/Pelvis Back: no CVA tenderness Skin General skin exam: no rashes or lesions noted Neuro General: patient oriented x3 Extrem General: Yes normal to inspection Psych Appearance: grossly normal and well kempt Mental Status: mental status grossly normal Speech and movement: Clear speech present Affect: normal affect Attitude: cooperative Thought process: Normal thought process present Thought content: Normal thought content present Insight: Fair insight present (Psych) Judgement: Fair judgement present (Psych) Results AMB Urinalysis, Automated UA Leukoctes 0 Angelina/uL Last Edit by SADIE Rodriguez on 06/13/25 09:16 UA Nitrite Negative Last Edit by SADIE Rodriguez on 06/13/25 09:16 UA Urobilinogen 0.2 mg/dL Last Edit by Oscar Reza CCM on 06/13/25 09:1 6 UA Protein 0 mg/dL Last Edit by SADIE Rodriguez on 06/13/25 09:16 UA pH 6.0 Last Edit by Oscar Reza CCM on 06/13/25 09:16 UA Blood 0 Cheng/uL Last Edit by Oscar Reza CCM on 06/13/25 09:16 UA Specific [employer] 1.015 Last Edit by Oscar Reza CCM on 06/13/25 09: 16 UA Ketone Negative Last Edit by SADIE Rodriguez on 06/13/25 09:16 UA Bilirubin 0 mg/dL Last Edit by SADIE Rodriguez on 06/13/25 09:16 UA Glucose 0 mg/dL Last Edit by Oscar Reza CCM on 06/13/25 09:16 Results Reviewed Results Reviewed: Laboratory Last Values Urine pH (Auto) 6.0 06/13/25 09:09 Specific [employer] (Auto) 1.015 06/13/25 09:09 Urine Protein (Auto) 0 mg/dL 06/13/25 09:09 Glucose (UA)(Auto) 0 mg/dL 06/13/25 09:09 Urine Ketones (Auto) Negative 06/13/25 09:09 Urine Blood (Auto) 0 Cheng/uL 06/13/25 09:09 Urine Nitrite (Auto) Negative 06/13/25 09:09 Urine Bilirubin (Auto) 0 mg/dL 06/13/25 09:09 Urine Urobilinogen (Auto) 0.2 mg/dL 06/13/25 09:09 Leukocyte Esterase (Auto) 0 Angelina/uL 06/13/25 09:09 Date of Service: 04/17/25 Procedure(s): US renal BI US renal Comparison: 09/08/2024 Findings: Right kidney 9.6 cm length. Probable minimal subcapsular fluid. No other significant abnormality. Left kidney 9.5 cm length. No significant focal abnormality. No bilateral hydronephrosis. Normal bilateral renal echogenicity. Impression: Minimal right renal subcapsular fluid Otherwise unremarkable Assessment & Plan Assessment & Plan (1) Calculus of kidney: Code(s): N20.0 - Calculus of kidney Category: Medical Plan In office urinalysis results with the patient today; as noted above. Most recent renal imaging results with the patient today; as noted above. She currently denies any bothersome urinary issues or concerns. She reports be happy with current voiding parameters. All questions were answered. We did discussed importance of adequate hydration relation to nephrolithiasis as well as overall health and well-being. Continue adding 1 oz of lemon juice to water daily. Will obtain renal ultrasound in 1 year. Follow-up in 1 year with imaging; or sooner with any issues, concerns, and or questions. Orders: Orders AMB Urinalysis Automated Today Z13.9 - Encounter for screening, unspecified US renal BI 1 Year N20.0 - Calculus of kidney Patient Instructions: The patient had an opportunity to ask questions regarding the treatment plan. All questions were answered. Physical exam, labs, and imaging were discussed and reviewed in detail. As well as risks, benefits, and discussion of treatment choices. No major barriers to understanding were identified. The patient expressed understanding and agreement with the above treatment plan. The patient was made aware they should contact our office by phone for worsening of their current condition, the appearance of new symptoms, or with any questions or concerns. Compliance is encouraged with any medications and follow up testing that is ordered. It is a privilege to be allowed the opportunity to participate in? your urological care.? Again, if you have any questions or concerns If you have any questions or concerns please do not hesitate to contact me. The office is [phone]. This note is constructed using voice recognition software. While every effort has been made to ensure accuracy petroleum terminal plant operator errors may have been included. Yours sincerely, ROBSON Uribe Coding Level of Care Code Est Pt Level 3 (12049) Add On Problem Visit Only Diagnoses Calculus of kidney N20.0
--- OUTSIDE RECORDS SUMMARY | 2025-06-13 09:36 | XMS_ITS | Encounter Summary ---
Author Organization [employer] Address [address] [facility] 7t [place] [address] Care Team Providers Care Massage Operator Name Role Phone Ej Ceron MD Primary Care Prov ider Reason for Visit * Reason Onset Date Comments Med Refill 06/09/2025 Encounter Details Date Type Department Care Team (Late st Contact Info) Description 06/09/2025 Refill [facility] MEDICINE [address] [place] [address] Ej Ceron MD [address] [place] [id number] Social History Tobacco Use Types Packs/Day Years [...] Telephone Encounter - Claudette Solorzano LPN - 06/09/2025 2:11 PM EST Last seen 06/06/25. * Telephone Encounter - Gunjan Roth - 06/09/2025 2:06 PM EST Tc from requesting a med refill: albuterol 108 (90 Base) MCG/ACT inhaler PCP Dr. Ray documented in this encounter Plan of Treatment Upcoming Encounters Date Type Department Care Team (Late st Contact Info) Description 08/21/2025 9:30 AM EST Telemedicine [facility] MED & PEDS [address] [place] [address] Roz Christopher RN [address] [place] [address] documented as of this encounter Visit Diagnoses Not on filedocumented in this encounter Additional Health Concerns Assessment Noted Time PHQ-9 Depression Total Score: 0 06/06/20 9:33 AM EST documented as of this encounter Care Teams Massage Operator Relationship Specialty Start Date End Date Ej Ceron MD [address] [place] [address] PCP - General Internal Medicine 06/08/24 documented as of this encounter
--- OUTSIDE RECORDS SUMMARY | 2025-06-13 09:36 | XMS_ITS | Encounter Summary ---
Author Organization [employer] Address 75 [facility] 7t [place] [address] Care Team Providers Care Health Care Analyst Name Role Phone Ej Ceron MD Primary Care Prov ider Reason for Visit * Reason Onset Date Comments Medication Question 02/09/2025 Encounter Details Date Type Department Care Team (Late st Contact Info) Description 02/09/2025 Telephone [facility] MEDICINE [address] [place] [address] Ej Ceron MD [address] [place], [place] [phone] Medication Question Social History Tobacco Use Types [...] Miscellaneous Notes * Telephone Encounter - Liss Satples RN - 02/15/2025 10:11 AM EDT Patient [...] in the past by old PCP at [facility] . Ptreports giving provider a list of meds she used to take . documented in this encounter Plan of Treatment Upcoming Encounters Date Type Department Care Team ([facility] st Contact Info) Description 08/21/2025 9:30 AM EST Telemedicine [facility] MED & PEDS [address] [place] [address] Roz Christopher, RN [address] [place] [address] documented as of this encounter Visit Diagnoses Not on filedocumented in this encounter Additional Health Concerns Assessment Noted Time PHQ-9 Depression Total Score: 0 05/17/20 24 2:24 PM EST documented as of this encounter Care Teams Health Care Analyst Relationship Specialty Start Date End Date Ej Ceron MD [address] [place] [address] PCP - General Internal Medicine 06/08/24 documented as of this encounter
--- OUTSIDE RECORDS SUMMARY | 2025-06-13 09:36 | XMS_ITS | Encounter Summary ---
Author Organization [employer] Address [address] [facility] 7t [place] [address] Care Team Providers Care Qa Engineer Name Role Phone Ej Ceron MD Primary Care Prov ider Reason for Visit * Reason Onset Date Comments Med Refill 10/11/2024 Encounter Details Date Type Department Care Team (Late st Contact Info) Description 10/11/2024 Telephone [facility] MEDICINE [address] [place] [address] Ej Ceron MD [address] [place] [phone] Med Refill Social History Tobacco Use Types [...] 50 MG tablet To be sent to: [facility] #[id number] - [address] * Telephone Encounter - Duke Kemp - 10/11/2024 11:06 AM EDT TC from pt requesting medication refill. Medications needing refill : traMADol (Ultram) 50 MG tablet [id number] [address] [facility] documented in this encounter Plan of Treatment Upcoming Encounters Date Type Department Care Team ([facility] st Contact Info) Description 08/21/2025 9:30 AM EST Telemedicine [facility] MED & PEDS [address] [facility] [place] [address] Roz Christopher, MARANDA [address] [facility] [place] [address] documented as of this encounter Visit Diagnoses Not on filedocumented in this encounter Additional Health Concerns Assessment Noted Time PHQ-9 Depression Total Score: 0 05/17/20 24 2:24 PM EST documented as of this encounter Care Teams Qa Engineer Relationship Specialty Start Date End Date Ej Ceron MD [address] [place] [address] PCP - General Internal Medicine 06/08/24 documented as of this encounter
--- OUTSIDE RECORDS SUMMARY | 2025-06-13 09:36 | XMS_ITS | Encounter Summary ---
Author Organization [employer] Address [address] [facility] 7t [place] [address] Care Team Providers Care Installment Account Checker Name Role Phone Ej Ceron MD Primary Care Prov ider Reason for Visit * Reason Onset Date Comments Med Refill 09/08/2024 Encounter Details Date Type Department Care Team (Late st Contact Info) Description 09/08/2024 Telephone [facility] MEDICINE [address] [place] [address] Ej Ceron MD [address] [place] [address] [phone] Med Refill Social History Tobacco Use Types [...] 100 MG capsule To be sent to: [facility]- [address] [place] [id number] documented in this encounter Plan of Treatment Upcoming Encounters Date Type Department Care Team (Late st Contact Info) Description 08/21/2025 9:30 AM EST Telemedicine [facility] MED & PEDS 505 [place] [address] Roz Christopher, MARANDA 505 [place] [address] documented as of this encounter Visit Diagnoses Not on filedocumented in this encounter Additional Health Concerns Assessment Noted Time PHQ-9 Depression Total Score: 0 05/17/20 24 2:24 PM EST documented as of this encounter Care Teams Installment Account Checker Relationship Specialty Start Date End Date Ej Ceron MD 505 [place] [address] PCP - General Internal Medicine 06/08/24 documented as of this encounter
--- OUTSIDE RECORDS SUMMARY | 2025-06-13 09:36 | XMS_ITS | Encounter Summary ---
Author Organization [employer] Address [address] [facility] 7t [place] [address] Care Team Providers Care Correctional Captain Name Role Phone Ej Ceron MD Primary Care Prov ider Reason for Visit * Reason Comments Med Refill Encounter Details Date Type Department Care Team ([facility] Contact Info) Description 03/09/2025 Refill [facility] CHC MED & PEDS [address] [place], [place] [phone] Ej Ceron MD [address] [place] [address] Social History Tobacco Use Types Packs/Day Years [...] Info) Description 08/21/2025 9:30 AM EST Telemedicine [facility] CHC MED & PEDS [address] [place] [address] Roz Christopher RN [address] [place] [address] documented as of this encounter Visit Diagnoses Not on filedocumented in this encounter Additional Health Concerns Assessment Noted Time PHQ-9 Depression Total Score: 0 05/17/20 24 2:24 PM EST documented as of this encounter Care Teams Correctional Captain Relationship Specialty Start Date End Date Ej Ceron MD [address] [place] [address] PCP - General Internal Medicine 06/08/24 documented as of this encounter
--- OUTSIDE RECORDS SUMMARY | 2025-06-13 09:36 | XMS_ITS | Encounter Summary ---
Author Organization [employer] Address 75 [facility] 7t [place] [address] Care Team Providers Care Odd Job Laborer Name Role Phone Ej Ceron MD Primary Care Prov ider Reason for Visit * Reason Comments Med Refill Encounter Details Date Type Department Care Team ([facility] Contact Info) Description 12/07/2024 Refill [facility] CHC MED & PEDS [address] [place], [place] [phone] Samra Bush MD 505 [place] [address] Social History Tobacco Use Types Packs/Day Years [...] [facility]S [address] [place] [address] Roz Christopher RN 505 [place] [address] documented as of this encounter Visit Diagnoses Not on filedocumented in this encounter Additional Health Concerns Assessment Noted Time PHQ-9 Depression Total Score: 0 05/17/20 24 2:24 PM EST documented as of this encounter Care Teams Odd Job Laborer Relationship Specialty Start Date End Date Ej Ceron MD [address] [place] [address] PCP - General Internal Medicine 06/08/24 documented as of this encounter
--- OUTSIDE RECORDS SUMMARY | 2025-06-13 09:36 | XMS_ITS | Encounter Summary ---
Author Organization [employer] Address 75 [facility] 7t [place] [address] Care Team Providers Care Sales Management Trainee Name Role Phone Ej Ceron MD Primary Care Prov ider Reason for Visit * Reason Comments Med Refill Encounter Details Date Type Department Care Team ([facility] Contact Info) Description 10/12/[address] [facility] CHC MED & PEDS [address] [place], [place] [phone] Samra Bush MD [address] [place] [address] Social History Tobacco Use Types Packs/Day Years [...] Info) Description 08/21/2025 9:[address] [facility] CHC MED & PEDS [address] [place] [address] Roz Christopher RN 505 [place] [address] documented as of this encounter Visit Diagnoses Not on filedocumented in this encounter Additional Health Concerns Assessment Noted Time PHQ-9 Depression Total Score: 0 05/17/20 24 2:24 PM EST documented as of this encounter Care Teams Sales Management Trainee Relationship Specialty Start Date End Date Ej Ceron MD [address] [place] [address] PCP - General Internal Medicine 06/08/24 documented as of this encounter
--- OUTSIDE RECORDS SUMMARY | 2025-06-13 09:36 | XMS_ITS | Encounter Summary ---
Author Organization [employer] Address 75 [facility] 7t [place] [address] Care Team Providers Care Diamond Setter Apprentice Name Role Phone Ej Ceron MD Primary Care Prov ider Reason for Visit * Reason Comments Med Refill Encounter Details Date Type Department Care Team ([facility] Contact Info) Description 11/27/2024 Refill [facility] CHC MED & PEDS [address] [place], [place] [phone] Ej Ceron MD 505 [place] [address] Social History Tobacco Use Types Packs/Day Years [...] Description 08/21/2025 9:30 AM EST Telemedicine [facility] CHC MED & PEDS [address] [place] [address] Roz Christopher RN 505 [place] [address] documented as of this encounter Visit Diagnoses Not on filedocumented in this encounter Additional Health Concerns Assessment Noted Time PHQ-9 Depression Total Score: 0 05/17/20 24 2:24 PM EST documented as of this encounter Care Teams Diamond Setter Apprentice Relationship Specialty Start Date End Date Ej Ceron MD 505 [place] [address] PCP - General Internal Medicine 06/08/24 documented as of this encounter
--- OUTSIDE RECORDS SUMMARY | 2025-06-13 09:36 | XMS_ITS | Clinical Summary ---
Author Organization [employer] Address [address] [facility] [address] 7[address] [place] [address] Care Team Providers Care Ham Marker Name Role Phone Ej Ceron MD Primary [...] TIMES DAILY 540 capsule 03/30/20 25 Active atorvastatin (Lipitor) 80 MG tablet TAKE 1 TABLET BY MOUTH EVERY DAY 90 tablet 1 04/19/20 25 Active levothyroxine (Synthroid, Levoxyl) 88 MCG [...] up to 28 days. 56 tablet 06/06/20 Active amoxicillin-c lavulanate (Augmentin) 875-125 MG tablet Take 1 tablet by mouth 2 times daily for 7 days. 14 tablet 06/06/20 025 Active losartan (Cozaar) 25 MG tablet Take 1 tablet (25 mg) by mouth Once per day. 30 tablet 11 06/06/20 25 Active Blood Pressure kit 1 kit Once per day. 1 kit 06/06/20 Active albuterol 108 (90 Base) MCG/ACT inhaler INHALE 2 PUFFS BY MOUTH EVERY 4 HOURS NEEDED FOR WHEEZING 18 g 06/09/20 Active albuterol 108 (90 Base) MCG/ACT inhaler Inhale 2 puffs every 4 (four) hours if needed for wheezing. 18 g 04/10/20 25 025 Discontinued(Re order (will not trigger notification to Pharmacy)) traMADol (Ultram) 50 MG tabletIndicat ions:Chronic left shoulder pain Take 1 tablet (50 mg) by mouth every 12 (twelve) hours if needed for severe pain for up to 28 days. 56 tablet 05/10/20 25 025 Discontinued(Re order (will not trigger notification to Pharmacy)) predniSONE (Deltasone) 20 MG tablet Take 2 tablets (40 mg) by mouth Once per day for 5 days. 10 tablet 06/06/20 25 025 Blood Pressure kit 1 kit Once per day. 1 kit 06/06/20 25 025 Discontinued(Re order (will not trigger notification to Pharmacy)) Active Problems Problem Noted Date Diagnosed Date Acute non-recurrent maxillary sinusitis 06/06/20 Assessment & Plan (06/06/2025 7:50 PM EST): Will rpescribe augmenting, er precautions reviewed, call back if not improving Primary hypertension 06/06/2025 Assessment & Plan (06/06/2025 7:50 PM EST): Will start on losartan 25mg, keep blood pressure log, target <140/90, follow up in 1 month Elevated blood pressure reading 11/11/2024 Assessment & [...] 2024 Acquired hypothyroidism 08/03/2024 Assessment & Plan (06/06/2025 7:49 PM EST): On levothyroxine, tsh has not been repeated, told patient to get blood work done for guidance of therapy Assessment & Plan (11/11/2024 5:33 PM EDT): [...] 2009 All: morphine/bactrim Meds: as above A0 [id number] Had colonoscopy 7-8 years ago, will review gi consult Encounter for screening mamm ogram for malignant neoplasm of breast 07/08/2024 Assessment & Plan (07/08/2024 3:22 PM EST): Will order a breast mammogram Menopause 07/08/2024 Assessment & Plan (07/08/2024 3:23 PM EST): Will order a bone density scan Encounters Date Type Department Care Team Description 06/09/2025 Refill [facility] MEDICINE [address] [place] [address] Ej Ceron MD 06/06/2025 9:30 AM EST Office Visit [facility] MED & PEDS [address] [place] [address] Ej Ceron MD Acquired hypothyroidism (Primary Dx); Chronic left shoulder pain; Acute non-recurrent maxillary sinusitis; Primary hypertension 06/06/2025 Orders Only [facility] CHC MED & PEDS [address] [place] [address] Ej Ceron MD 06/06/2025 Travel 06/05/2025 Telephone [facility] MED & PEDS [address] [place] [address] Ej Ceron MD Chart Prep 06/05/2025 Travel 05/25/2025 11:00 AM EST Clinical Support [facility] MED & PEDS [address] [place] [address] Roz Christopher RN Chronic midline low back pain without sciatica (Primary Dx) 05/25/2025 Travel 05/24/2025 Travel 05/08/2025 Refill [facility] CHC MED & PEDS [address] [place] [address] Roz Christopher RN Chronic left shoulder pain 05/08/2025 Telephone [facility] MEDICINE [address] [place] [address] Ej Ceron MD Med Refill 05/02/2025 Refill [facility] MED & PEDS [address] [place] [address] Ej Ceron MD 04/20/2025 Orders Only [facility] [address] [place] [address] ProviderCharlotte MD 04/18/2025 Refill [facility] MED & PEDS [address] [place] [address] Ej Ceron MD 04/10/2025 1:40 PM EDT Office Visit [facility] MED & PEDS [address] [place] [address] Dot Fisher MD Cystitis (Primary Dx); Smoker; SOB (shortness of breath) on exertion; Family history of AR (myocardial infarction); Mixed hyperlipidemia; Acquired hypothyroidism 04/10/2025 Refill [facility] MED & PEDS [address] [place] [address] Ej Ceron MD Chronic left shoulder pain 04/10/2025 Travel 04/06/2025 Telephone [facility] MED & PEDS [address] [place], [place] [phone] Ej Ceron MD Appointment Request 04/05/2025 Telephone [facility] MEDICINE [address] [place] [address] Ej Ceron MD Nurse Triage 03/28/2025 Refill [facility] MED & PEDS [address] [place] [address] Ej Ceron MD from Last 3 Months [...] Upcoming Encounters Date Type Department Care Team ([facility] st Contact Info) Description 08/21/2025 9:30 AM EST Telemedicine [facility] CHC MED & PEDS [address] [place] [address] Roz Christopher, RN [address] [place] [address] Health Maintenance Due Date Last Done Comments [...] Screening 06/06/2026 06/06/2025 Mammogram 08/02/2026 08/02/2024, 08/02/2024 Lipid Panel 09/05/2029 09/05/2024 DTaP/Tdap/Td Vaccines (2 - Td or Tdap) [...] Date/Time Associated Diagnosis Comments T4, FREE Routine 06/06/2025 10:13 AM EST TSH W/REFLEX TO FT4 Routine 06/06/2025 1 0:13 AM EST Acquired hypothyroidism POCT MARIZA-14 URINE DRUG SCREEN Routine 05/25/2025 11:17 AM EST Chronic midline low back pain without sciatica CT LUNG SCREENING Routine 04/13/2025 3:5 1 PM EDT POCT URINALYSIS DIPSTICK Routine 04/10/2025 1:42 PM EDT Cystitis CULTURE, URINE, ROUTINE Routine 04/10/2025 1:15 PM EDT Cystitis HEPATITIS C AB W/REFL TO HCV RNA, QN, PCR Routine 09/05/2024 11:01 AM EDT Acquired hypothyroidism LIPID PANEL, STANDARD Routine 09/05/2024 11:01 AM EDT Acquired hypothyroidism from Last 3 Months or Most Recently Relevant to Health Maintenance Results * (ABNORMAL) TSH W/Reflex to FT4 (06/06/2025 10:13 AM EST) TSH reflex Free T4 44.97(H) 0.32 - 4.0 uIU/mL [facility] Blood Venous blood specimen / Unknown 06/06/2025 10:13 AM EST 06/06/2025 3:28 PM EST Ej Shen MD LAB BLOOD ORDERABL ES Final Result Performing Organization Address [facility] Co de Phone Number [facility] [address] [place] [phone] * T4, Free (06/06/2025 10:13 AM EST) Free T4 (Free Thyroxine) 0.95 0.71 - 1.85 ng/dL [facility] 06/06/2025 10:1 3 AM EST 06/06/2025 3:28 PM EST Ej Shen MD LAB BLOOD ORDERABL ES Final Result Performing Organization Address [facility] Co de Phone Number [facility] [address] [place] [phone] * POCT MARIZA-14 Urine Drug Screen (05/25/2025 11:17 AM EST) THC Negative Negative Cocaine Screen, Urine Negative [...] AM EST . Internal Pass Control Lot# [id number] Exp: 03-28-26 Ej Shen MD POINT OF [...] EDT 04/10/2025 6:40 PM EDT Comment:UACC Narrative [facility] - 04/12/2025 7:54 AM EDT [...] OR DERABLES Final Result Performing Organization Address [facility] Co de Phone Number [facility] [address] [place] [phone] * Hepatitis C Antibody with Reflex to HCV, RNA, Quantitative, Real-Time PCR (09/05/2024 11:01 AM EDT) Hepatitis C Antibody Nonreactive Nonreactive [facility] Comment:Antibodies to HCV no t detected; does not exclude early acuteHCV infection. Blood Venous blood specimen / Unknown 09/05/2024 11:01 AM EDT 09/05/2024 2:19 PM EDT us Ej Shen MD LAB BLOOD ORDERABL ES Final Result Performing Organization Address [facility]/ZIP Co de Phone Number [facility] [address] [place] [phone] * Lipid Panel, Standard (09/05/2024 11:01 AM EDT) Triglycerides 107 <150 mg/dL [facility] Comment:Desirable Triglyceri de: less than 150 mg/dLBorderline High Triglyceride 150-199 mg/dLHigh Triglyceride: 200-499 mg/dLVery High Triglyceride: greater than or equal to 5OO mg/dL Cholesterol 163 <200 mg/dL [facility] Comment:Desirable Cholestero l: less than 200 mg/dLBorderline High Cholesterol: 200-239 mg/dLHigh Cholesterol: greater than 239 mg/dL LDL Cholesterol Calculated 96 <100 mg/dL [facility] Comment:Desirable LDL: less than 100 mg/dLNear Optimal/Above Optimal LDL: 110- 129 mg/dLBorderline High LDL: 130-159 mg/dLHigh LDL: 160-189 mg/dLVery High LDL: greater than or equal to 190 mg/dL HDL Cholesterol 46 >40 mg/dL [facility] Comment:Desirable HDL: great er than 40 mg/dL Note: This HDL assay may give artificially low results in patients with liver disease. Blood Venous blood specimen / Unknown 09/05/2024 11:01 AM EDT 09/05/2024 2:19 PM EDT Ej Shen MD LAB BLOOD ORDERABL ES Final Result [facility] [address] [place] [address] [phone] from Last 3 Months or Most Recently Relevant to Health Maintenance Insurance # [address] [place] [address] [facility] MEDICARE REPLACEMENT Care Teams Ham Marker Relationship Specialty Start Date End Date Ej Ceron MD [address] [place] [phone] PCP - General Internal Medicine 06/08/24
--- OUTSIDE RECORDS SUMMARY | 2025-06-13 09:36 | XMS_ITS | Encounter Summary ---
Author Organization [employer] Address 75 [facility] 7t [place] [address] Care Team Providers Care Plush Cutter Name Role Phone Ej Ceron MD Primary Care Prov ider Reason for Visit * Reason Onset Date Comments Med Refill 05/08/2025 Encounter Details Date Type Department Care Team (Late st Contact Info) Description 05/08/2025 Telephone [facility] MEDICINE [address] [place] [address] Ej Ceron MD [address] [place] [phone] Med Refill Social History Tobacco Use Types [...] traMADol (Ultram) [address] Ray documented in this encounter Plan of Treatment Upcoming Encounters Date Type Department Care Team (Late st Contact Info) Description 08/21/2025 9:30 AM EST Telemedicine [facility] MED & PEDS [address] [place] [address] Roz Christopher, MARANDA [address] [place] [address] documented as of this encounter Visit Diagnoses Not on filedocumented in this encounter Additional Health Concerns Assessment Noted Time PHQ-9 Depression Total Score: 0 05/17/20 2:24 PM EST documented as of this encounter Care Teams Plush Cutter Relationship Specialty Start Date End Date Ej Ceron MD [address] [place] [address] PCP - General Internal Medicine 06/08/24 documented as of this encounter
--- OUTSIDE RECORDS SUMMARY | 2025-06-13 09:36 | XMS_ITS | Encounter Summary ---
Author Organization [employer] Address 75 [facility] 7t [place] [address] Care Team Providers Care Glue Mill Operator Name Role Phone Ej Ceron MD Primary Care Prov ider Encounter Details Date Type Department Care Team (Late st Contact Info) Description 08/04/2024 Orders Only [facility] [address] [place], [place] [phone] ProviderCharlotte MD Social History Tobacco Use Types [...] Upcoming Encounters Date Type Department Care Team ([facility] st Contact Info) Description 08/21/2025 9:30 AM EST Telemedicine [facility] MED & PEDS [address] [place] [address] Roz Christopher RN [address] [place] [address] documented as of this encounter Procedures Procedure [...] documented as of this encounter Care Teams Glue Mill Operator Relationship Specialty Start Date End Date Ej Ceron MD 505 [place] [address] PCP - General Internal Medicine 06/08/24 documented as of this encounter
--- OUTSIDE RECORDS SUMMARY | 2025-06-13 09:36 | XMS_ITS | Patient Health Record ---
Author Organization [facility] Address [address] [place] [address] Care Team Providers Care Electrical Test Technician Name Role Phone Pablo Ruano DO Primary Care Provider Serenity Gomez Unavailable [phone] Allergies Allergen (clinical drug ingredient) Drug/Non Drug [...] Insured Coverage Start Date Coverage End Date [facility] [address] [place] [address] [id number] Tejal Steward Self - patient is the [...]
--- OUTSIDE RECORDS SUMMARY | 2025-06-13 09:36 | XMS_ITS | Encounter Summary ---
Author Organization [employer] Address 75 [facility] 7t [place] [address] Care Team Providers Care Roofer Helper Name Role Phone Ej Ceron MD Primary Care Prov ider Encounter Details Date Type Department Care Team (Late st Contact Info) Description 04/20/2025 Orders Only [place] [facility] [address] [place], [place] [phone] ProviderCharlotte MD Social History Tobacco Use Types [...] 08/21/2025 9:30 AM EST Telemedicine [facility] MED & PEDS [address] [place] [address] Roz Christopher, RN 505 [place] [address] documented as of this encounter Procedures Procedure [...] documented as of this encounter Care Teams Roofer Helper Relationship Specialty Start Date End Date Ej Ceron MD [address] [place] [address] PCP - General Internal Medicine 06/08/24 documented as of this encounter
--- OUTSIDE RECORDS SUMMARY | 2025-06-13 09:36 | XMS_ITS | Clinical Summary ---
Author Organization [facility] [place] Address [address] [place] [address] Care Team Providers Care Rate Inserter Name Role Phone Ej Ceron Primary Care Provide r Allergies No known active allergies Encounters Date Type Department Care Team Description 04/13/2025 11:32 AM EDT - 04/13/2025 11:59 PM EDT Hospital Encounter [facility] CT Scan [address] [place] [phone] Former smoker; Encounter for screening for lung cancer Discharge Disposition: Home or Self Care 03/24/2025 Telephone Lung Screening Program - [place] [address] [facility] [address] [place] [phone] Ermelinda Murry MD from Last 3 Months [...] Chest CT [place] 12 [place] ([id number]) -------- FINAL REPORT -------- Dictated By: Noemy Chairez Dictated Date: 04/20/2025 10:21 ET Assigned Physician: Noemy Chairez Reviewed and Electronically Signed By: Noemy Chairez Signed Date: 04/20/2025 10:32 ET Workstation ID: [id number] Transcribed By: Self Edit Transcribed Date: 04/20/2025 10:21 ET Narrative 04/20/2025 10:32 AM EDT History: 70 year-old 45 pack-year former smoker, asymptomatic, for lung cancer screening. Quit smoking 2 years ago. Comparison: 04/12/24 Technique: Helical volumetric imaging of the thorax was performed, using low- dose technique, without IV contrast. DLP: 99.71 mGy/cm CTDIvol: 3.22 mGy PVC Recycling VCT Iterative reconstruction technique Findings: Lungs and [...] contrast. DLP: 99.71 mGy/cm CTDIvol: 3.22 mGy PVC Recycling VCT Iterative reconstruction technique Findings: Lungs and [...] Chest CT in 12 months[place] ([id number]) -------- FINAL REPORT -------- Dictated By: Noemy Chairez Dictated Date: 04/20/2025 10:21 ET Assigned Physician: Noemy Chairez Reviewed and Electronically Signed By: Noemy Chairez Signed Date: 04/20/2025 10:32 ET Workstation ID: [id number] Transcribed By: Self Edit Transcribed Date: 04/20/2025 [...] Signed Date: 08/04/2024 09:29 ET Workstation ID: [id number] Transcribed By: Self Edit Transcribed Date: 08/04/2024 09:24 ET Narrative 08/04/2024 9:29 AM EST EXAM: MG MAMMO DIGITAL SCREENING W PASHA BILAT EXAM DATE AND TIME: 08/02/2024 10:50 AM HISTORY: Breast cancer screen, avg risk, asymptomatic (Age => 40y) COMPARISON: 08/07/2016 TECHNIQUE: Bilateral digital breast tomosynthesis was performed in the MLO projection. Computer aided detection with TrackIF 3D 3.1 was employed. TISSUE DENSITY: b: [...] in the MLOprojection. Computer aided detection with TrackIF 3D 3.1 wasemployed. TISSUE DENSITY: b: There [...] Signed Date: 08/04/2024 09:29 ET Workstation ID: [id number] Transcribed By: Self Edit Transcribed Date: 08/04/2024 [...] (World Health Organization Fracture Risk Assessment) [facility] Department of Internal Medicine recommends using [...] alternative screening schedule based on trista Suero., [facility] July 10, 2011 for patients with [...] years. (World HealthOrganization Fracture Risk Assessment) [facility] Department of Internal Medicine recommendsusing National [...] alternative screening schedule based on trista Suero., [facility] for patients with osteopenia (based [...] Maintenance Insurance [employer] MEDICARE Care Teams Rate Inserter Relationship Specialty Start Date End Date Ej Ceron [address] [place] [phone] PCP - General Internal Medicine 07/19/24
--- OUTSIDE RECORDS SUMMARY | 2025-06-13 09:36 | XMS_ITS | Encounter Summary ---
Author Organization [employer] Address 75 [facility] 7t [place] [address] Care Team Providers Care Sole Skiver Name Role Phone Ej Ceron MD Primary Care Prov ider Reason for Visit * Reason Onset Date Comments Med Refill 06/08/2024 Encounter Details Date Type Department Care Team (Late st Contact Info) Description 06/08/2024 Telephone [facility] MEDICINE [address] [place] [address] Ej Ceron MD [address] [place] [phone] Med Refill Social History Tobacco Use Types [...] tablets a Day. To be sent to: [id number] - [place], [place] - [address] [place] [address] AT SEC OF [facility] & [address] documented in this encounter Plan of Treatment Upcoming Encounters Date Type Department Care Team ([facility] st Contact Info) Description 08/21/2025 9:30 AM EST Telemedicine [facility] CHC MED & PEDS [address] [place] [address] Roz Christopher RN [address] [place] [address] documented as of this encounter Visit Diagnoses Not on filedocumented in this encounter Additional Health Concerns Assessment Noted Time PHQ-9 Depression Total Score: 0 05/17/20 24 2:24 PM EST documented as of this encounter Care Teams Sole Skiver Relationship Specialty Start Date End Date Ej Ceron MD [address] [place] [address] PCP - General Internal Medicine 06/08/24 documented as of this encounter
--- OUTSIDE RECORDS SUMMARY | 2025-06-13 09:36 | XMS_ITS | Encounter Summary ---
Author Organization [employer] Address 75 [facility] 7t [place] [address] Care Team Providers Care Pulley Man Name Role Phone Ej Ceron MD Primary Care Prov ider Reason for Visit * Reason Onset Date Comments Med Refill 09/08/2024 Encounter Details Date Type Department Care Team (Late st Contact Info) Description 09/08/2024 Telephone [facility] MEDICINE [address] [place] [address] Ej Ceron MD [address] [place] [phone] Med Refill Social History Tobacco Use Types [...] MG tablet To be sent to: [facility]- [address] [place] [phone] documented in this encounter Plan of Treatment Upcoming Encounters Date Type Department Care Team (Late st Contact Info) Description 08/21/2025 9:30 AM EST Telemedicine [facility] MED & PEDS [address] [place] [address] Roz Christopher RN [address] [place] [address] documented as of this encounter Visit Diagnoses Not on filedocumented in this encounter Additional Health Concerns Assessment Noted Time PHQ-9 Depression Total Score: 0 05/17/20 24 2:24 PM EST documented as of this encounter Care Teams Pulley Man Relationship Specialty Start Date End Date Ej Ceron MD [address] [place] [address] PCP - General Internal Medicine 06/08/24 documented as of this encounter
== END 2025-06-13 09:32 | disposition home or self-care (01) ==
LOC: HO.HUSH 09:01
PROVIDERS: PCP Internal Medicine; Visit Provider Nurse Practitioner Family
DX: N20.0 Calculus of kidney (principal); Z13.9 Encounter for screening, unspecified
CPT/HCPCS: 99213; G2211

== ENCOUNTER → 2025-06-13 09:01 | Outpatient (BNVA) | payer MEDICARE, SELFPAY | PROVIDERS: PCP Internal Medicine; Visit Provider Nurse Practitioner Family | DX: N20.0 Calculus of kidney (principal) | CPT/HCPCS: 81003; 99212 ==

== ENCOUNTER 2025-06-16 08:58 | Outpatient (REF) | payer MEDICARE, SELFPAY ==
--- NOTE | 2025-06-16 | PFT_ITS ---
Indications cough Spirometry FEV1 to FVC 79%; FEV1 2.26 L; FVC 2.86 L. there is a significant response to bronchodilators noted. Lung Volumes The patient has a difficult time with the maneuvers. Therefore accurate measurements could not be achieved. Diffusion Capacity DLCO 74% predicted Methacholine Challenge [] Flow Volume Loops Normal MVV 73% predicted Comparisons None Interpretation No obstructive nor restrictive ventilatory defects identified. Again lung volumes could not be measured. The patient did have a significant response to bronchodilators noted. The patient appears to have an isolated mild diffusion impairment. Could be secondary to occult interstitial changes secondary to her smoking history. Should correct for hemoglobin. Clinical correlation warranted. MTDD
--- OUTSIDE RECORDS SUMMARY | 2025-06-16 09:00 | XMS_ITS | Encounter Summary ---
Author Organization [employer] Address 75 [facility] 7t [place] [address] Care Team Providers Care Telemedicine Physician Name Role Phone Ej Ceron MD Primary Care Prov ider Reason for Visit * Reason Onset Date Comments Med Refill 06/08/2024 Encounter Details Date Type Department Care Team (Late st Contact Info) Description 06/08/2024 Telephone [facility] MEDICINE [address] [place] [address] Ej Ceron MD [address] [place] [phone] Med Refill Social History Tobacco Use Types [...] tablets a Day. To be sent to: [id number] - [address] AT SEC OF [facility] & [address] [address] documented in this encounter Plan of Treatment Upcoming Encounters Date Type Department Care Team ([facility] Contact Info) Description 07/14/2025 10:15 AM EST Telemedicine [facility] 505 [place] [address] Ej Ceron MD 505 [place] [address] 08/21/2025 9:30 AM EST Telemedicine [facility] MED & PEDS 505 [place] [address] Roz Christopher RN 505 [place] [address] documented as of this encounter Visit Diagnoses Not on filedocumented in this encounter Additional Health Concerns Assessment Noted Time PHQ-9 Depression Total Score: 0 11/26/20 24 2:24 PM EST documented as of this encounter Care Teams Telemedicine Physician Relationship Specialty Start Date End Date Ej Ceron MD [address] [place] [address] PCP - General Internal Medicine 06/08/24 documented as of this encounter
--- OUTSIDE RECORDS SUMMARY | 2025-06-16 09:01 | XMS_ITS | Encounter Summary ---
Author Organization [employer] Address 75 [facility] 7t [place] [address] Care Team Providers Care Spaghetti Machine Operator Name Role Phone Ej Ceron MD Primary Care Prov ider Encounter Details Date Type Department Care Team (Late st Contact Info) Description 04/20/2025 Orders Only [place] [facility] 230 [place], [place] [phone] ProviderCharlotte MD Social History Tobacco Use Types [...] Care Team (Late st Contact Info) Description 07/14/2025 10:15 AM EST Telemedicine [facility] MED & PEDS 505 [place] [address] Ej Ceron MD 505 [place] [address] 08/21/2025 9:30 AM EST Telemedicine [facility] MED & PEDS 505 [place] [address] Roz Christopher, RN 505 [place] [address] documented as of this encounter Procedures Procedure [...] documented as of this encounter Care Teams Spaghetti Machine Operator Relationship Specialty Start Date End Date Ej Ceron MD 505 [place] [address] PCP - General Internal Medicine 06/08/24 documented as of this encounter
--- OUTSIDE RECORDS SUMMARY | 2025-06-16 09:01 | XMS_ITS | Clinical Summary ---
Author Organization [employer] Address [address] [facility] [address] 7t [place] [address] Care Team Providers Care Clinical Nurse Reviewer Name Role Phone Ej Ceron MD Primary [...] to 28 days. 56 tablet 06/06/20 Active losartan (Cozaar) 25 MG tablet Take [...] to 28 days. 56 tablet 05/10/20 25 Discontinued(Re order (will not trigger notification to Pharmacy)) amoxicillin-c lavulanate (Augmentin) 875-125 MG tablet Take 1 tablet by mouth 2 times daily for 7 days. 14 tablet 06/06/20 25 025 predniSONE (Deltasone) 20 MG tablet Take 2 [...] 2009 All: morphine/bactrim Meds: as above A0 [id number] Had colonoscopy 7-8 years ago, will review gi consult Encounter for screening mamm ogram for malignant neoplasm of breast 07/08/2024 Assessment & Plan (07/08/2024 3:22 PM EST): Will order a breast mammogram Menopause 07/08/2024 Assessment & Plan (07/08/2024 3:23 PM EST): Will order a bone density scan Encounters Date Type Department Care Team Description 06/09/2025 Refill [facility] MEDICINE 230 [place] [address] Ej Ceron MD 06/06/2025 9:30 AM EST Office Visit [facility] [address] [place] [address] Ej Ceron MD Acquired hypothyroidism (Primary Dx); Chronic left shoulder pain; Acute non-recurrent maxillary sinusitis; Primary hypertension 06/06/2025 Orders Only [facility] [address] [place] [address] Ej Ceron MD 06/06/2025 Travel 06/05/2025 Telephone [facility] [address] [place] [address] Ej Ceron MD Chart Prep 06/05/2025 Travel 05/25/2025 11:00 AM EST Clinical Support [facility] [address] [place] [address] Roz Christopher RN Chronic midline low back pain without sciatica (Primary Dx) 05/25/2025 Travel 05/24/2025 Travel 05/08/2025 Refill [facility] [address] [place] [address] Roz Christopher RN Chronic left shoulder pain 05/08/2025 Telephone [facility] [address] [place] [address] Ej Ceron MD Med Refill 05/02/2025 Refill [facility] [address] [place] [address] Ej Ceron MD 04/20/2025 Orders Only [place] [facility] 230 [place] [address] ProviderCharlotte MD 04/18/2025 Refill [facility] [address] [place] [address] Ej Ceron MD 04/10/2025 1:40 PM EDT Office Visit [facility] [address] [place] [address] Dot Fisher MD Cystitis (Primary Dx); Smoker; SOB (shortness of breath) on exertion; Family history of NC (myocardial infarction); Mixed hyperlipidemia; Acquired hypothyroidism 04/10/2025 Refill [facility] [address] [place] [address] Ej Ceron MD Chronic left shoulder pain 04/10/2025 Travel 04/06/2025 Telephone [facility] [address] [place], [place] [phone] Ej Ceron MD Appointment Request 04/05/2025 Telephone [facility] [address] [place] [address] Ej Ceron MD Nurse Triage 03/28/2025 Refill [facility] [address] [place] [address] Ej Ceron MD from Last 3 Months [...] Info) Description 07/14/2025 10:15 AM EST Telemedicine [facility] [address] [place] [address] Ej Ceron MD 505 [place] [address] 08/21/2025 9:30 AM EST Telemedicine [facility] 505 [place] [address] Roz Christopher RN 505 [place] [address] Health Maintenance Due Date Last Done Comments [...] Free T4 44.97(H) 0.32 - 4.0 uIU/mL [facility] Blood Venous blood specimen / Unknown 06/06/2025 10:13 AM EST 06/06/2025 3:28 PM EST Ej Shen MD LAB BLOOD ORDERABL ES Final Result Performing Organization Address [facility] Co de Phone Number [facility] [address] [place] [phone] * T4, Free (06/06/2025 10:13 AM EST) Free T4 (Free Thyroxine) 0.95 0.71 - 1.85 ng/dL [facility] 06/06/2025 10:1 3 AM EST 06/06/2025 3:28 PM EST Ej Shen MD LAB BLOOD ORDERABL ES Final Result Performing Organization Address [facility] Co de Phone Number [facility] [address] [place] [phone] * POCT MARIZA-14 Urine Drug Screen [...] AM EST . Internal Pass Control Lot# [id number] Exp: 03-28-26 Ej Shen MD POINT OF CARE TEST ENTER/EDIT ORDERABLES Final Result * CT Lung Screening Low dose (04/13/2025 3:51 PM EDT) Anatomical Region Laterality Modality Lung Computed Tomogra phy Historical Provider IMHu CT PROCEDURES Final R esult * (ABNORMAL) [...] EDT 04/10/2025 6:40 PM EDT Comment:UACC Narrative [facility] - 04/12/2025 7:54 AM EDT [...] OR DERABLES Final Result Performing Organization Address [facility]/ZIP Co de Phone Number [facility] [address] [place] [phone] * Hepatitis C Antibody with Reflex to HCV, RNA, Quantitative, Real-Time PCR (09/05/2024 11:01 AM EDT) Pathologist [facility] Hepatitis C Antibody Nonreactive Nonreactive [facility] Comment:Antibodies to HCV no t detected; does not exclude early acuteHCV infection. Blood Venous blood specimen / Unknown 09/05/2024 11:01 AM EDT 09/05/2024 2:19 PM EDT us Ej Shen MD LAB BLOOD ORDERABL ES Final Result Performing Organization Address [facility] Co de Phone Number [facility] [address] [place] [phone] * Lipid Panel, Standard (09/05/2024 11:01 AM EDT) Triglycerides 107 <150 mg/dL [facility] Comment:Desirable Triglyceri de: less than 150 mg/dLBorderline High Triglyceride 150-199 mg/dLHigh Triglyceride: 200-499 mg/dLVery High Triglyceride: greater than or equal to 5OO mg/dL Cholesterol 163 <200 mg/dL [facility] Comment:Desirable Cholestero l: less than 200 mg/dLBorderline High Cholesterol: 200-239 mg/dLHigh Cholesterol: greater than 239 mg/dL LDL Cholesterol Calculated 96 <100 mg/dL [facility] Comment:Desirable LDL: less than 100 mg/dLNear Optimal/Above Optimal LDL: 110- 129 mg/dLBorderline High LDL: 130-159 mg/dLHigh LDL: 160-189 mg/dLVery High LDL: greater than or equal to 190 mg/dL HDL Cholesterol 46 >40 mg/dL [facility] Comment:Desirable HDL: great er than 40 mg/dL Note: This HDL assay may give artificially low results in patients with liver disease. Blood Venous blood specimen / Unknown 09/05/2024 11:01 AM EDT 09/05/2024 2:19 PM EDT us Ej Shen MD LAB BLOOD ORDERABL ES Final Result [facility] [address] [place] [phone] from Last 3 Months or Most Recently Relevant to Health Maintenance Insurance # [address] [place] [address] [facility] MEDICARE REPLACEMENT Care Teams Clinical Nurse Reviewer Relationship Specialty Start Date End Date Ej Ceron MD [address] [place] [phone] PCP - General Internal Medicine 06/08/24
--- OUTSIDE RECORDS SUMMARY | 2025-06-16 09:01 | XMS_ITS | Encounter Summary ---
Author Organization [employer] Address 75 [facility] 7t [place] [address] Care Team Providers Care Web Content Executive Name Role Phone Ej Ceron MD Primary Care Prov ider Encounter Details Date Type Department Care Team (Late st Contact Info) Description 08/04/2024 Orders Only [place] [facility] 230 [place], [place] [phone] ProviderCharlotte MD Social History Tobacco Use Types [...] Upcoming Encounters Date Type Department Care Team ([facility] st Contact Info) Description 07/14/2025 10:15 AM EST Telemedicine [facility] MED & PEDS 505 [place] [address] Ej Ceron MD 505 [place] [address] 08/21/2025 9:30 AM EST Telemedicine [facility] PED[facility] 505 [place] [address] Roz Christopher, RN 505 [place] [address] documented as of this encounter Procedures Procedure [...] documented as of this encounter Care Teams Web Content Executive Relationship Specialty Start Date End Date Ej Ceron MD 505 [place] [address] PCP - General Internal Medicine 06/08/24 documented as of this encounter
--- OUTSIDE RECORDS SUMMARY | 2025-06-16 09:01 | XMS_ITS | Encounter Summary ---
Author Organization [employer] Address 75 [facility] 7t [place] [address] Care Team Providers Care Email Marketing Coordinator Name Role Phone Ej Ceron MD Primary Care Prov ider Reason for Visit * Reason Onset Date Comments Med Refill 09/08/2024 Encounter Details Date Type Department Care Team (Late st Contact Info) Description 09/08/2024 Telephone [facility] MEDICINE 230 [place] [address] Ej Ceron MD [address] [place] [address] [phone] Med Refill Social History Tobacco Use Types [...] MG capsule To be sent to: [facility]- [address] [place] [phone] documented in this encounter Plan of Treatment Upcoming Encounters Date Type Department Care Team (Late st Contact Info) Description 07/14/2025 10:15 AM EST Telemedicine [facility] MED & PEDS 505 [place] [address] Ej Ceron MD 505 [place] [address] 08/21/2025 9:30 AM EST Telemedicine [facility] P[facility] 505 [place] [address] Roz Christopher RN 505 [place] [address] documented as of this encounter Visit Diagnoses Not on filedocumented in this encounter Additional Health Concerns Assessment Noted Time PHQ-9 Depression Total Score: 0 05/17/20 2:24 PM EST documented as of this encounter Care Teams Email Marketing Coordinator Relationship Specialty Start Date End Date Ej Ceron MD [address] [place] [address] PCP - General Internal Medicine 06/08/24 documented as of this encounter
--- OUTSIDE RECORDS SUMMARY | 2025-06-16 09:01 | XMS_ITS | Encounter Summary ---
Author Organization [employer] Address 75 [facility] 7t [place] [address] Care Team Providers Care Community Product Specialist Name Role Phone Ej Ceron MD Primary Care Prov ider Reason for Visit * Reason Onset Date Comments Med Refill 10/11/2024 Encounter Details Date Type Department Care Team (Late st Contact Info) Description 10/11/2024 Telephone [facility] MEDICINE 230 [place] [address] Ej Ceron MD [address] [place] [address] [phone] Med Refill Social History Tobacco Use Types [...] 50 MG tablet To be sent to: [id number] - [id number] * Telephone Encounter - Duke Kemp - 10/11/2024 11:06 AM EDT TC from pt requesting medication refill. Medications needing refill : traMADol (Ultram) 50 MG tablet To be sent to: [facility][id number] - [id number] documented in this encounter Plan of Treatment Upcoming Encounters Date Type Department Care Team ([facility] st Contact Info) Description 07/14/2025 10:15 AM EST Telemedicine [facility] MED & PEDS 505 [place], [place] [phone] Ej Ceron MD 505 [place], [place] [phone] 08/21/2025 9:30 AM EST Telemedicine [facility] MED & PEDS 505 [place] [address] Roz Christopher RN 505 [place] [address] documented as of this encounter Visit Diagnoses Not on filedocumented in this encounter Additional Health Concerns Assessment Noted Time PHQ-9 Depression Total Score: 0 05/17/20 2:24 PM EST documented as of this encounter Care Teams Community Product Specialist Relationship Specialty Start Date End Date Ej Ceron MD 505 [place] [address] PCP - General Internal Medicine 06/08/24 documented as of this encounter
--- OUTSIDE RECORDS SUMMARY | 2025-06-16 09:01 | XMS_ITS | Encounter Summary ---
Author Organization [employer] Address 75 [facility] 7t [place] [address] Care Team Providers Care Cigar Packer And Shader Name Role Phone Ej Ceron MD Primary Care Prov ider Reason for Visit * Reason Comments Med Refill Encounter Details Date Type Department Care Team ([facility] Contact Info) Description 03/09/2025 Refill [facility]EDS [address] [place], [place] [phone] Ej Ceron MD 505 [place] [address] Social History Tobacco Use Types Packs/Day Years [...] Info) Description 07/14/2025 10:15 AM EST Telemedicine [facility] MED & PEDS [address] [place] [address] Ej Ceron MD 505 [place] [address] 08/21/2025 9:30 AM EST Telemedicine [facility] MED & PEDS [address] [place] [address] Roz Christopher, MARANDA 505 [place] [address] documented as of this encounter Visit Diagnoses Not on filedocumented in this encounter Additional Health Concerns Assessment Noted Time PHQ-9 Depression Total Score: 0 05/17/20 2:24 PM EST documented as of this encounter Care Teams Cigar Packer And Shader Relationship Specialty Start Date End Date Ej Ceron MD [address] [place] [address] PCP - General Internal Medicine 06/08/24 documented as of this encounter
--- OUTSIDE RECORDS SUMMARY | 2025-06-16 09:01 | XMS_ITS | Encounter Summary ---
Author Organization [email or web address] Address 75 [facility] 7t [place] [address] Care Team Providers Care Barn Worker Name Role Phone Ej Ceron MD Primary Care Prov ider Reason for Visit * Reason Comments Med Refill Encounter Details Date Type Department Care Team ([facility] Contact Info) Description 10/12/2024 Refill [facility]EDS [address] [place], [place] [phone] Samra Bush MD 505 [place] [address] Social History Tobacco Use Types Packs/Day Years [...] 07/14/2025 10:15 AM EST Telemedicine [facility] MED & PEDS 505 [place] [address] Ej Ceron MD 505 [place] [address] 08/21/2025 9:30 AM EST Telemedicine [facility] MED & PEDS [address] [place] [address] Roz Christopher, MARANDA 505 [place] [address] documented as of this encounter Visit Diagnoses Not on filedocumented in this encounter Additional Health Concerns Assessment Noted Time PHQ-9 Depression Total Score: 0 05/17/20 2:24 PM EST documented as of this encounter Care Teams Barn Worker Relationship Specialty Start Date End Date Ej Ceron MD 505 [place] [address] PCP - General Internal Medicine 06/08/24 documented as of this encounter
--- OUTSIDE RECORDS SUMMARY | 2025-06-16 09:01 | XMS_ITS | Encounter Summary ---
Author Organization [employer] Address 75 [facility] 7t [place] [address] Care Team Providers Care Echocardiograph Tech Name Role Phone Ej Ceron MD Primary Care Prov ider Reason for Visit * Reason Onset Date Comments Med Refill 09/08/2024 Encounter Details Date Type Department Care Team (Late st Contact Info) Description 09/08/2024 Telephone [facility] MEDICINE 230 [place] [address] Ej Ceron MD [address] [place] [address] [phone] Med Refill Social History Tobacco Use Types [...] 50 MG tablet To be sent to: [facility]- [address] [place] [phone] documented in this encounter Plan of Treatment Upcoming Encounters Date Type Department Care Team (Late st Contact Info) Description 07/14/2025 10:15 AM EST Telemedicine [facility] MED & PEDS 505 [place] [address] Ej Ceron MD 505 [place] [address] 08/21/2025 9:30 AM EST Telemedicine [facility] MED [facility] PEDS 505 [place] [address] Roz Christopher RN 505 [place] [address] documented as of this encounter Visit Diagnoses Not on filedocumented in this encounter Additional Health Concerns Assessment Noted Time PHQ-9 Depression Total Score: 0 05/17/20 2:24 PM EST documented as of this encounter Care Teams Echocardiograph Tech Relationship Specialty Start Date End Date Ej Ceron MD [address] [place] [address] PCP - General Internal Medicine 06/08/24 documented as of this encounter
--- OUTSIDE RECORDS SUMMARY | 2025-06-16 09:01 | XMS_ITS | Encounter Summary ---
Author Organization [employer] Address 75 [facility] 7t [place] [address] Care Team Providers Care Technical Asst Name Role Phone Ej Ceron MD Primary Care Prov ider Reason for Visit * Reason Comments Med Refill Encounter Details Date Type Department Care Team ([facility] Contact Info) Description 12/07/2024 Refill [facility] 505 [place], [place] [phone] Samra Bush MD 505 [place] [address] Social History Tobacco Use Types Packs/Day Years [...] Info) Description 07/14/2025 10:15 AM EST Telemedicine [facility] MED & PEDS 505 [place] [address] Ej Ceron MD 505 [place] [address] 08/21/2025 9:30 AM EST Telemedicine [facility] MED & PEDS 505 [place] [address] Roz Christopher, MARANDA 505 [place] [address] documented as of this encounter Visit Diagnoses Not on filedocumented in this encounter Additional Health Concerns Assessment Noted Time PHQ-9 Depression Total Score: 0 05/17/20 2:24 PM EST documented as of this encounter Care Teams Technical Asst Relationship Specialty Start Date End Date Ej Ceron MD 505 [place] [address] PCP - General Internal Medicine 06/08/24 documented as of this encounter
--- OUTSIDE RECORDS SUMMARY | 2025-06-16 09:01 | XMS_ITS | Encounter Summary ---
Author Organization [employer] Address 75 [facility] 7t [place] [address] Care Team Providers Care Hotel Controller Name Role Phone Ej Ceron MD Primary Care Prov ider Reason for Visit * Reason Onset Date Comments Med Refill 05/08/2025 Encounter Details Date Type Department Care Team (Late st Contact Info) Description 05/08/2025 Telephone [facility] MEDICINE [address] [place] [address] Ej Ceron MD [address] [place] [phone] Med Refill Social History Tobacco Use Types [...] Info) Description 07/14/2025 10:15 AM EST Telemedicine [facility] PEDS 505 [place] [address] Ej Ceron MD 505 [place] [address] 08/21/2025 9:30 AM EST Telemedicine [facility] MED [facility] PEDS 505 [place] [address] Roz Christopher RN 505 [place] [address] documented as of this encounter Visit Diagnoses Not on filedocumented in this encounter Additional Health Concerns Assessment Noted Time PHQ-9 Depression Total Score: 0 05/17/20 24 2:24 PM EST documented as of this encounter Care Teams Hotel Controller Relationship Specialty Start Date End Date Ej Ceron MD [address] [place] [address] PCP - General Internal Medicine 06/08/24 documented as of this encounter
--- OUTSIDE RECORDS SUMMARY | 2025-06-16 09:01 | XMS_ITS | Encounter Summary ---
Author Organization [employer] Address 75 [facility] 7t [place] [address] Care Team Providers Care Department Of Natural Resources Officer Name Role Phone Ej Ceron MD Primary Care Prov ider Reason for Visit * Reason Comments Med Refill Encounter Details Date Type Department Care Team ([facility] Contact Info) Description 11/27/2024 Refill [facility]S 505 [place], [place] [phone] Ej Ceron MD [address] [place] [address] Social History Tobacco Use Types Packs/Day Years [...] Description 07/14/2025 10:15 AM EST Telemedicine [facility] 505 [place] [address] Ej Ceron MD [address] [place] [address] 08/21/2025 9:30 AM EST Telemedicine [facility] 505 [place] [address] Roz Christopher, MARANDA 505 [place] [address] documented as of this encounter Visit Diagnoses Not on filedocumented in this encounter Additional Health Concerns Assessment Noted Time PHQ-9 Depression Total Score: 0 05/17/20 2:24 PM EST documented as of this encounter Care Teams Department Of Natural Resources Officer Relationship Specialty Start Date End Date Ej Ceron MD [address] [place] [address] PCP - General Internal Medicine 06/08/24 documented as of this encounter
--- OUTSIDE RECORDS SUMMARY | 2025-06-16 09:01 | XMS_ITS | Encounter Summary ---
Author Organization [employer] Address [address] [place] [address] Care Team Providers Care Operations Coordinator Name Role Phone Ej Ceron MD Primary Care Prov ider Reason for Visit * Reason Onset Date Comments Medication Question 02/09/2025 Encounter Details Date Type Department Care Team (Late st Contact Info) Description 02/09/[address] [facility] MEDICINE [address] [place] [address] Ej Ceron MD [address], [place] [phone] Medication Question Social History Tobacco Use Types [...] list of medicationswhen she first started seeing [facility]. She stated she takes 1 pill at night to help her sleep because she gets severe leg cramps while sleeping. Will route to provider for review. * Telephone Encounter - Evaristo Cervantes - 02/09/2025 4:12 PM EDT TC from pt requesting Cyclobenzaprine 10mg prescribed in the past by old PCP at [facility] . Ptreports giving provider a list of meds she used to take . documented in this encounter Plan of Treatment Upcoming Encounters Date Type Department Care Team ([facility] st Contact Info) Description 07/14/2025 10:15 AM EST Telemedicine [facility] MED [facility]EDS [address] [place] [address] Ej Ceron MD [address], [place] [phone] 08/21/2025 9:30 AM EST Telemedicine [facility] MED & PEDS [address] [place] [address] Roz Christopher RN [address], [place] [phone] documented as of this encounter Visit Diagnoses Not on filedocumented in this encounter Additional Health Concerns Assessment Noted Time PHQ-9 Depression Total Score: 0 05/17/20 2:24 PM EST documented as of this encounter Care Teams Operations Coordinator Relationship Specialty Start Date End Date Ej Ceron MD [address] [place] [address] PCP - General Internal Medicine 06/08/24 documented as of this encounter
--- OUTSIDE RECORDS SUMMARY | 2025-06-16 09:01 | XMS_ITS | Clinical Summary ---
Author Organization [facility] Address [address] [place] [address] Care Team Providers Care Toll Line Mechanic Name Role Phone Ej Ceron Primary Care Provide r Allergies No known active allergies Encounters Date Type Department Care Team Description 04/13/2025 11:32 AM EDT - 04/13/2025 11:59 PM EDT Hospital Encounter [facility] CT Scan [address] [place] [phone] Former smoker; Encounter for screening for lung cancer Discharge Disposition: Home or Self Care 03/24/2025 Telephone Lung Screening Program - [place] [address] [place] [phone] Ermelinda Murry MD from Last 3 Months [...] Chest CT in 12 months. [place] ([id number]) -------- FINAL REPORT -------- Dictated By: Noemy Chairez Dictated Date: 04/20/2025 10:21 ET Assigned Physician: Noemy Chairez Reviewed and Electronically Signed By: Noemy Chairez Signed Date: 04/20/2025 10:32 ET Workstation ID: [id number] Transcribed By: Self Edit Transcribed Date: 04/20/2025 10:21 ET Narrative 04/20/2025 10:32 AM EDT History: 70 year-old 45 pack-year former smoker, asymptomatic, for lung cancer screening. Quit smoking 2 years ago. Comparison: 04/12/24 Technique: Helical volumetric imaging of the thorax was performed, using low- dose technique, without IV contrast. DLP: 99.71 mGy/cm CTDIvol: 3.22 mGy [employer] VCT Iterative reconstruction technique Findings: Lungs and [...] contrast. DLP: 99.71 mGy/cm CTDIvol: 3.22 mGy [employer] VCT Iterative reconstruction technique Findings: Lungs and [...] Chest CT in 12 months. [place] ([id number]) -------- FINAL REPORT -------- Dictated By: Noemy Chairez Dictated Date: 04/20/2025 10:21 ET Assigned Physician: Noemy Chairez Reviewed and Electronically Signed By: Noemy Chairez Signed Date: 04/20/2025 10:32 ET Workstation ID: [id number] Transcribed By: Self Edit Transcribed Date: 04/20/2025 [...] Signed Date: 08/04/2024 09:29 ET Workstation ID: [id number] Transcribed By: Self Edit Transcribed Date: 08/04/2024 09:24 ET Narrative 08/04/2024 9:29 AM EST EXAM: MG MAMMO DIGITAL SCREENING W PASHA BILAT EXAM DATE AND TIME: 08/02/2024 10:50 AM HISTORY: Breast cancer screen, avg risk, asymptomatic (Age => 40y) COMPARISON: 08/07/2016 TECHNIQUE: Bilateral digital breast tomosynthesis was performed in the MLO projection. Computer aided detection with [employer] 3D 3.1 was employed. TISSUE DENSITY: b: [...] in the MLOprojection. Computer aided detection with [employer] 3D 3.1 wasemployed. TISSUE DENSITY: b: There [...] Signed Date: 08/04/2024 09:29 ET Workstation ID: [id number] Transcribed By: Self Edit Transcribed Date: 08/04/2024 [...] (World Health Organization Fracture Risk Assessment) [facility] Department of Internal Medicine recommends using [...] alternative screening schedule based on trista Suero., [facility] July 10, 2011 for patients with [...] years. (World HealthOrganization Fracture Risk Assessment) [facility] Department of Internal Medicine recommendsusing National [...] alternative screening schedule based on trista Suero., [facility] for patients with osteopenia (based [...] Maintenance Insurance [employer] MEDICARE Care Teams Toll Line Mechanic Relationship Specialty Start Date End Date Ej Ceron [address] [place] [id number] PCP - General Internal Medicine 07/19/24
--- OUTSIDE RECORDS SUMMARY | 2025-06-16 09:01 | XMS_ITS | Patient Health Record ---
[facility] Address [address] [place] [address] Care Team Providers Care Consulting Engineer Name Role Phone Pablo Ruano DO Primary Care Provider Serenity Gomez Unavailable [phone] Allergies Allergen (clinical drug ingredient) Drug/Non Drug [...] Insured Coverage Start Date Coverage End Date [facility] [address] [place] [address] [id number] Tejal Steward Self - patient is the [...]
[2025-06-16 09:55] VITALS: PULSE 85
== END 2025-06-16 08:59 | disposition home or self-care (01) ==
LOC: HO.RESP 08:58
PROVIDERS: PCP Internal Medicine; Visit Provider Pediatrics
DX: R06.02 Shortness of breath (principal); Z87.891 Personal history of nicotine dependence
CPT/HCPCS: 94060; 94640; 94727; 94729

== ENCOUNTER → 2025-06-16 09:10 | Outpatient (BNV) | payer MEDICARE, SELFPAY | PROVIDERS: PCP Internal Medicine; Visit Provider Hospitalist | DX: Z87.891 Personal history of nicotine dependence (principal) | CPT/HCPCS: 94060; 94727; 94729 ==